=== PATIENT | female | born 1950 | race Caucasian/White ===

== ENCOUNTER 2024-08-26 22:47 | Observation (INO) ==
--- NOTE | 2024-08-26 23:11 | Emergency Department Note ---
Impression & Plan JERI (acute kidney injury), Weakness, Vomiting ED Provider Note NAME: YULIANA OMALLEY AGE: 74 SEX: F : 1950 ARRIVES VIA: Ambulance INFORMANT: Patient ED PROVIDER(S): Reginald Lambert DO CHIEF COMPLAINT: Abdominal pain HPI: Patient is a 74-year-old female who presents to the ER from heart side following a left leg injury and surgery for vomiting. Patient has been vomiting since yesterday. She has been unable to keep anything down. She complains of diffuse abdominal pain. Denies any headache or change in vision. No chest pain or shortness of breath. No dysuria, urgency, or frequency. Per report from EMS does have a history of dementia. Vomit has been bile colored in nature. Staff per EMS also reported that the patient had a very large bowel movement earlier today. ADDITIONAL HISTORY OBTAINED: Per HPI Chronic Medical/Social Conditions Affecting Care: Per HPI PAST MEDICAL HISTORY:See Below PAST SURGICAL HISTORY:See Below FAMILY HISTORY:See Below SOCIAL HISTORY:See Below HOME MEDICATIONS:See Below ALLERGIES:See Below VITALS:See Below PHYSICAL EXAMINATION: GENERAL: Sitting up in bed, alert, moderate distress holding abdomen EYE EXAM: normal conjunctiva. OROPHARYNX: mucous membranes are moist LUNGS: Clear to auscultation. Normal chest wall mechanics HEART: no murmurs, S1 normal and S2 normal ABDOMEN: abdomen soft, non-tender, normo-active bowel sounds, no masses, no rebound or guarding. BACK: Back is symmetrical on inspection and there is no deformity, no midline tenderness, no CVA tenderness. UPPER EXTREMITIES: upper extremities are grossly normal. LOWER EXTREMITIES: No pitting edema. NEURO EXAM: Normal sensorium, cranial nerves II-XII grossly intact, normal speech, no gross weakness of arms, no gross weakness of legs. MEDICAL DECISION MAKING: Patient is a 74-year-old female who presents to the ER for nausea vomiting and weakness. IV was established and blood work was obtained. Labs show no significant leukocytosis. Mild anemia at 10.4. BMP with a creatinine of 2.8 up from baseline of 1.4. LFTs and bilirubin is unremarkable. Lipase is normal. UA is clean. CT abdomen pelvis shows no obstruction. Patient was given IV fluids and Roman was placed. Discussed with the hospitalist admitted for further workup. Consults/Care Managements Discussions: Per MDM Triage Nursing notes reviewed. Limited review of prior medical records performed Vital Signs: reviewed and remarkable for no significant abnormalities Differential diagnosis: Differential diagnoses includes but is not limited to gastritis, peptic ulcer disease, GERD, gallbladder disease, pancreatitis, small bowel obstruction, appendicitis, diverticulitis, hernia, urinary tract infection, torsion, perforation, trauma, infectious. ER treatment provided: See below Diagnostics interpreted by me include EKG and cardiac monitoring as listed below: -Cardiac Monitoring: An order was placed for continuous cardiac monitoring. The monitor shows a rate of 80 with sinus rhythm. -ECG: none -Laboratory studies:Interpreted by me as stated above in MDM and shown below. Imaging studies: Xrays: As interpreted by me: None CTs show: CT abdomen pelvis per my preliminary interpretation showed no obvious bowel obstruction CT of the pelvis per radiology showed no acute pathology Procedures: None Critical Care: None Past Med/Surg History Problem List (Updated 08/27/24 @ 02:31 by Reginald Lambert DO) Vomiting (Acute) Weakness (Acute) JERI (acute kidney injury) (Acute) Social History Smoking Status: Never smoker Preferred Language: Malay Feels Safe at Home: Yes Allergies Allergies Allergy/AdvReac Type Severity Reaction Status Date / Time ether Allergy Unknown Verified 07/13/24 20:58 Penicillins Allergy Unknown Verified 07/13/24 20:58 Home Meds Home Medications Medication Instructions Recorded Confirmed glipizide 10 mg tablet 10 mg PO DAILY 07/13/24 07/13/24 lisinopril 10 mg tablet 10 mg PO DAILY 07/13/24 07/13/24 simvastatin 20 mg tablet 20 mg PO HS 07/13/24 07/13/24 Results & Data (ED) Vital Signs Vital Signs - 24 hr 08/26/24 23:01 08/26/24 23:04 08/26/24 23:05 Temperature 36.9 C Temperature Source Oral Pulse Rate 74 74 85 Pulse Rate [Apical] Respiratory Rate 19 20 Respiratory Effort / Characteristics Respiratory Depth Normal Respiratory Pattern Blood Pressure 148/104 H Blood Pressure [Left Arm] Blood Pressure Mean 118 Blood Pressure Mean [Left Arm] Pulse Oximetry 97 97 Oxygen Delivery Method Room Air Room Air Sepsis Recent Fever Within 48 Hours No Sepsis New/Unexplained Change in Mental Status No Sepsis Action Taken by Nursing No Action Required 08/26/24 23:53 08/27/24 00:00 08/27/24 00:18 Temperature Temperature Source Pulse Rate 86 73 Pulse Rate [Apical] 82 Respiratory Rate 20 18 18 Respiratory Effort / Characteristics Non-Labored Respiratory Depth Normal Respiratory Pattern Regular Blood Pressure 167/80 H 151/78 H Blood Pressure [Left Arm] 157/80 H Blood Pressure Mean 116 112 Blood Pressure Mean [Left Arm] 105 Pulse Oximetry 98 98 98 Oxygen Delivery Method Room Air Room Air Room Air Sepsis Recent Fever Within 48 Hours Sepsis New/Unexplained Change in Mental Status Sepsis Action Taken by Nursing 08/27/24 00:30 08/27/24 01:05 08/27/24 01:38 Temperature Temperature Source Pulse Rate 75 75 73 Pulse Rate [Apical] Respiratory Rate 21 16 18 Respiratory Effort / Characteristics Respiratory Depth Respiratory Pattern Blood Pressure 143/65 H 153/72 H 140/86 Blood Pressure [Left Arm] Blood Pressure Mean 103 88 119 Blood Pressure Mean [Left Arm] Pulse Oximetry 97 98 96 Oxygen Delivery Method Room Air Room Air Room Air Sepsis Recent Fever Within 48 Hours Sepsis New/Unexplained Change in Mental Status Sepsis Action Taken by Nursing Laboratory Data 08/26/24 23:05 08/26/24 23:05 Lab Results 08/26/24 08/26/24 08/27/24 Range/Units 23:05 23:41 00:52 WBC 10.12 (4.8-10.8) K/ul RBC 3.73 L (4.20-5.40) M/uL Hgb 10.4 L (12.0-16.0) g/dl POC Hgb 10.9 L (12.0-16.0) g/dl Hct 35.5 L (37.0-47.0) % POC Hct 32 L (37-47) % MCV 95.2 (80.0-100.0) fL MCH 27.9 (25.0-34.0) pg MCHC 29.3 L (32.0-36.0) g/dL RDW Std Deviation 57.8 H (36.4-46.3) fL RDW Coeff of Caleb 16.7 H (11.5-14.5) % Plt Count (130-400) K/uL MPV (9.4-12.4) fL Immature Gran % (Auto) 1.1 % Neut % (Auto) 67.6 % Lymph % (Auto) 23.1 % Page % (Auto) 7.0 % Eos % (Auto) 0.7 % Baso % (Auto) 0.5 % Neut # (Auto) 6.84 H (1.40-6.50) K/uL Lymph # (Auto) 2.34 (1.20-3.40) K/uL Page # (Auto) 0.71 H (0.11-0.59) K/uL Eos # (Auto) 0.07 (0.00-0.50) K/uL Baso # (Auto) 0.05 (0.00-0.20) K/uL Immature Gran # (Auto) 0.11 (0.01-0.20) K/uL Echinocytes 1+ POC Sodium 144 (135-144) mmol/L Sodium 144 (136-145) mmol/L POC Potassium 4.6 (3.3-5.0) mmol/L Potassium 4.7 (3.5-5.1) mmol/L POC Chloride 114 H (101-112) mmol/L Chloride 108 H (98-107) mmol/L Carbon Dioxide 13 L (21-32) mmol/L POC Total CO2 15 L (24-31) mmol/L Anion Gap 23 H (3-11) POC Anion Gap 20.0 (16-25) mmol/L POC BUN 37 H (7-18) mg/dl BUN 40 H (6-23) mg/dl Creatinine 2.88 H D (0.6-1.2) mg/dl POC Creatinine 3.3 H (0.6-1.3) mg/dl Est Cr Clr Drug Dosing 18.4 ml/min eGFR 16.72 BUN/Creatinine Ratio 13.9 (10-20) Glucose 180 H (70-99(Fasting)) mg/dl POC Glucose (other) 180 H (70-99) mg/dl Calcium 9.2 (8.6-10.3) mg/dl POC Ioniz Calcium Rachna 1.19 (1.12-1.32) mmol/l Total Bilirubin 0.4 (0.2-1.0) mg/dl AST 28 (13-39) U/L ALT 23 (7-52) U/L Alkaline Phosphatase 115 H (34-104) U/L Total Protein 7.3 (6.0-8.3) gm/dl Albumin 3.1 L (3.4-5.0) gm/dl Globulin 4.2 H (2.5-4.0) gm/dl Albumin/Globulin Ratio 0.7 L (0.9-2) Lipase 10 L (11-82) U/L Urine Color Yellow Urine Appearance Clear (Clear) Urine pH 5.0 (4.5-7.5) Ur Specific Randolph 1.013 (1.000-1.030) Urine Protein 1+ H (Negative) Urine Glucose (UA) Negative (Negative) Urine Ketones 1+ H (Negative) Urine Blood Trace H (Negative) Urine Nitrite Negative (Negative) Urine Bilirubin Negative (Negative) Urine Urobilinogen Negative (Negative) Ur Leukocyte Esterase Negative (Negative) Urine WBC (Auto) 0-5 (0-5) /hpf Urine RBC (Auto) 0-2 (0-2) /hpf U Hyaline Cast (Auto) 3-5 H (0-2) /lpf U Epithel Cells (Auto) 0-2 (0-2) /hpf Urine Bacteria (Auto) None Seen (None Seen) Administered Medications Discontinued Medications Sodium Chloride (Nss) 1,000 mls @ 999 mls/hr IV .Q1H1M ONE Stop: 08/27/24 00:09 Last Infusion: 08/27/24 00:55 Dose: Infused Documented By: Admin: 08/26/24 23:30 Dose: 999 mls/hr Documented By: EVELIN Sodium Chloride (Nss) 1,000 mls @ 999 mls/hr IV .Q1H1M ONE Stop: 08/27/24 00:44 Last Admin: 08/27/24 01:07 Dose: Not Given Documented By: EVELIN Morphine Sulfate (Morphine Sulfate 4 Mg/Ml 1 Ml Carp\Vial) 4 mg IV NOW STA Stop: 08/26/24 23:20 Last Admin: 08/26/24 23:31 Dose: 4 mg Documented By: EVELIN Ondansetron HCl (Ondansetron Inj 2 Mg/Ml 2 Ml Vial) 4 mg IV NOW STA Stop: 08/26/24 23:10 Last Admin: 08/26/24 23:30 Dose: 4 mg Documented By: EVELIN Imaging Data Radiologist's Impression: Abdomen/Pelvis CT 08/26/24 23:42 EXAM: CT abd pelvis wo con CLINICAL HISTORY: abd pain n/v TECHNIQUE: CT scan of the abdomen and pelvis was performed without IV contrast. Coronal and sagittal reconstructive images were also obtained. One of the following dose reduction techniques were utilized for this exam: Automated exposure control, adjustment of the mA and/or kV according to patient size, use of iterative reconstruction. COMPARISON: None. FINDINGS: Mild bilateral pleural effusion. Abdomen: Normal size of the liver. Small foci of calcification seen suggestive of old granuloma. No dilated intrahepatic biliary radicles. The kidneys are unremarkable. They are normal in size and shape. No calculi or hydronephrosis. Gallbladder is distended with mild increased density, no definite stones seen. No pericholecystic fluid or fat stranding. The spleen, pancreas, and adrenal glands are unremarkable. Uncomplicated sigmoid diverticuli. Small bowel loops are unremarkable. There is no evidence of significant enlargement of the mesenteric or retroperitoneal lymph nodes. Pelvis: The urinary bladder is unremarkable. The rectosigmoid colon is unremarkable. Previous hysterectomy. No evidence of pelvic lymphadenopathy. Lumbar vertebral spondylitic changes. Subcutaneous fat stranding seen at both sides of lower abdomen. IMPRESSION: 1. Mild bilateral pleural effusion. 2. Gallbladder is distended with mild increased density, No pericholecystic fat stranding or fluid collection. Would recommend ultrasound gallbladder for further evaluation if clinically warranted. 3. Uncomplicated sigmoid diverticuli. Electronically signed by Rosaura Lucas 08-27-2024 01:40 AM Discharge Plan Visit Data Chief Complaint: Vomiting Stated Complaint: NAUSEA/VOMITING ED Provider: Reginald Lambert Discharge Problem: JERI (acute kidney injury), Weakness, Vomiting Forms Stand Alone Forms: My [facility] [place] [employer] Prescriptions Prescriptions: No Action lisinopril 10 mg Tablet 10 mg PO DAILY glipizide 10 mg Tablet 10 mg PO DAILY simvastatin 20 mg Tablet 20 mg PO Referrals Referrals: Ken Cochran [Primary Care Provider] -
[2024-08-26] MEDS: SODIUM CHLORIDE 0.9% 1,000 ML IV ONE (23:30)
[2024-08-26] MEDS: ONDANSETRON INJ 2 MG/ML 2 ML VIAL IV STA (23:30)
[2024-08-26] MEDS: MoRPHine SULFATE 4 MG/ML 1 ML CARP\\VIAL IV STA (23:31)
[2024-08-26 23:53] LABS: iSTAT Creatinine 3.3 mg/dl (0.6-1.3); iSTAT Hemoglobin 10.9 g/dl (12.0-16.0); iSTAT Ionized Calcium 1.19 mmol/l (1.12-1.32); iSTAT Potassium 4.6 mmol/L (3.3-5.0)
[2024-08-27 00:10] LABS: Albumin Globulin Ratio 0.7 (0.9-2); Albumin Level 3.1 gm/dl (3.4-5.0); BUN Creatinine Ratio 13.9 (10-20); Bilirubin,Total 0.4 mg/dl (0.2-1.0); Calcium 9.2 mg/dl (8.6-10.3); Creatinine Clr Calc Pharmacy 18.4 ml/min; Globulin 4.2 gm/dl (2.5-4.0); Potassium 4.7 mmol/L (3.5-5.1); Total Protein 7.3 gm/dl (6.0-8.3)
[2024-08-27 00:29] LABS: Basophils # (auto) 0.05 K/uL (0.00-0.20); Basophils % (auto) 0.5 %; Echinocytes 1+; Eosinophils # (auto) 0.07 K/uL (0.00-0.50); Eosinophils % (auto) 0.7 %; Hematocrit (blood only) 35.5 % (37.0-47.0); Hemoglobin 10.4 g/dl (12.0-16.0); Immature Granulocytes # (auto) 0.11 K/uL (0.01-0.20); Immature Granulocytes % (auto) 1.1 %; Lymphocytes # (auto) 2.34 K/uL (1.20-3.40); Lymphocytes % (auto) 23.1 %; Mean Corpuscular Hemoglobin 27.9 pg (25.0-34.0); Mean Corpuscular Hgb Conc 29.3 g/dL (32.0-36.0); Mean Corpuscular Volume 95.2 fL (80.0-100.0); Monocytes # (auto) 0.71 K/uL (0.11-0.59); Neutrophils # (auto) 6.84 K/uL (1.40-6.50); Neutrophils % (auto) 67.6 %; RDW Coefficient of Variation 16.7 % (11.5-14.5); RDW Standard Deviation 57.8 fL (36.4-46.3); Red Blood Count 3.73 M/uL (4.20-5.40); White Blood Count 10.12 K/ul (4.8-10.8)
[2024-08-27] MEDS: SODIUM CHLORIDE 0.9% 1,000 ML IV ONE (01:07)
[2024-08-27 01:11] LABS: Appearance Urine Clear (Clear); Bacteria Urine Automated None Seen (None Seen); Bilirubin Urine Negative (Negative); Blood Urine Trace (Negative); Color Urine Yellow; Epithelial Cell Urine Auto 0-2 /hpf (0-2); Glucose Urine UA Negative (Negative); Ketones Urine 1+ (Negative); Leukocyte Esterase Urine Negative (Negative); Nitrite Urine Negative (Negative); Protein Urine 1+ (Negative); RBC Urine Automated 0-2 /hpf (0-2); Specific Gravity Urine 1.013 (1.000-1.030); Urobilinogen Urine Negative (Negative); WBC Urine Automated 0-5 /hpf (0-5)
--- NOTE | 2024-08-27 01:40 | CT Scan Report ---
EXAM: CT abd pelvis wo con CLINICAL HISTORY: abd pain n/v TECHNIQUE: CT scan of the abdomen and pelvis was performed without IV contrast. Coronal and sagittal reconstructive images were also obtained. One of the following dose reduction techniques were utilized for this exam: Automated exposure control, adjustment of the mA and/or kV according to patient size, use of iterative reconstruction. COMPARISON: None. FINDINGS: Mild bilateral pleural effusion. Abdomen: Normal size of the liver. Small foci of calcification seen suggestive of old granuloma. No dilated intrahepatic biliary radicles. The kidneys are unremarkable. They are normal in size and shape. No calculi or hydronephrosis. Gallbladder is distended with mild increased density, no definite stones seen. No pericholecystic fluid or fat stranding. The spleen, pancreas, and adrenal glands are unremarkable. Uncomplicated sigmoid diverticuli. Small bowel loops are unremarkable. There is no evidence of significant enlargement of the mesenteric or retroperitoneal lymph nodes. Pelvis: The urinary bladder is unremarkable. The rectosigmoid colon is unremarkable. Previous hysterectomy. No evidence of pelvic lymphadenopathy. Lumbar vertebral spondylitic changes. Subcutaneous fat stranding seen at both sides of lower abdomen. IMPRESSION: 1. Mild bilateral pleural effusion. 2. Gallbladder is distended with mild increased density, No pericholecystic fat stranding or fluid collection. Would recommend ultrasound gallbladder for further evaluation if clinically warranted. 3. Uncomplicated sigmoid diverticuli. Electronically signed by Rosaura Lucas 08-27-2024 01:40 AM
--- NOTE | 2024-08-27 05:18 | History & Physical Report ---
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 nu rsing home was sent in because of nausea vomiting and abdominal pain. Patient is alert to name. Per nursing staff she was also knew that she is in the hospital. Currently patient says she is having pain all over and repeating the same thing. And when asked other questions she says do not know. Could not get any history from the patient currently. Called the son it went to voicemail which is full. Called the friend and as per friend patient generally talks and make sense and friend said he will notify her son. Called [facility]. Per [facility] patient came there on August 24. And there is no clear documentation of mental status but there is a history of dementia. Patient is currently bedbound. Since Wednesday morning she is having lot of nausea and vomiting and they give p.o. Zofran but was not improving and she also complained of right upper quadrant abdominal pain when they decided to send to the hospital. No fevers. Had a bowel movement yesterday. As per [facility], Residents trauma surgery notes :"Patient seems to have a fall and noted to have open left distal femur fracture on 07/14 that required serial debridements prior to operative fixation and eventual discharge on 07/29 and antibiotic therapy via PICC line. She was readmitted on 08/16 with generalized malaise and a tracking around the surgical bed on CT scanning. ID and orthopedic surgery were consulted and adjusted antibiotics and CRP has been followed.. Ortho deferred operative management at this time as CRP has been stabilized with a plan to proceed with IV antibiotic therapy. She is currently on IV vancomycin and IV cefepime and p.o. voriconazole with end date of 09/19/2024. To follow-up with orthopedics and ID. Patient was discharged to [facility] on August 24, 2024. Nausea and vomiting Abdominal pain Possible gallbladder disease CT abdomen pelvis gallbladder distended with mild increased density. Recommending gallbladder ultrasound Will follow gallbladder ultrasound N.p.o. for now IV fluids IV antiemetics as needed GI consult Close monitor JERI on CKD Her creatinine was 2.3 on in [place] We do not have previous labs. As per [facility] creatinine 1.1 on 07/13/2024 Creatinine is 2.8 today No obstruction on the CAT scan Status post Roman in ER Getting fluids Will follow repeat labs Consulted nephro Metabolic acidosis Mostly from nausea vomiting from metformin? Getting fluids will consult nephro Left femur fracture infection infection Status post surgery at [place] Currently on IV Vanco and IV cefepime and p.o. voriconazole per ID recommendations with end date of 09/19/2024 Follow-up with Ortho and ID Transfer back to [facility] when stable Pain control Diabetes Will hold metformin Sliding scale Will monitor Constipation Stool softeners Anemia Possible anemia of recent illness Hemoglobin was 9.2 on 01/2024 Hemoglobin 10.4 today Hemoglobin was 14 on 07/13/2024 We will follow labs DVT prophylaxis On heparin subcu monitor hb Per [facility] ER notes from 07/13/2024 patient with a fall and open commuted intra articular fracture of the distal end of left femur and was transfered to [place]. Per ER notes she was on glipizide lisinopril and simvastatin at that time. Code Status. Per [facility] DNR. Will confirm with son. History of Present Illness Chief Complaint: Nausea and Vomiting and abdominal pain and confusion Primary Care Provider: [place] 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 was sent in because of nausea vomiting and abdominal pain. Patient is alert to name. Per nursing staff she was also knew that she is in the hospital. Currently patient says she is having pain all over and repeating the same thing. And when asked other questions she says do not know. Could not get any history from the patient currently. [facility]. Called the friend and as per friend patient generally talks and make sense and friend said he will notify her son. Called [facility]. Per [facility] patient came there on August 24. And there is no clear documentation of mental status but there is a history of dementia. Patient is currently bedbound. Since Wednesday morning she is having lot of nausea and vomiting and they give p.o. Zofran but was not improving and she also complained of right upper quadrant abdominal pain when they decided to send to the hospital. No fevers. Had a bowel movement yesterday. As per [facility], Residents trauma surgery notes :"Patient seems to have a fall and noted to have open left distal femur fracture on 07/14 that required serial debridements prior to operative fixation and eventual discharge on 07/29 and antibiotic therapy via PICC line. She was readmitted on 08/16 with generalized malaise and a tracking around the surgical bed on CT scanning. ID and orthopedic surgery were consulted and adjusted antibiotics and CRP has been followed.. Ortho deferred operative management at this time as CRP has been stabilized with a plan to proceed with IV antibiotic therapy. She is currently on IV vancomycin and IV cefepime and p.o. voriconazole with end date of 09/19/2024. To follow-up with orthopedics and ID. Patient was discharged to [facility] on August 24, 2024. Past medical's. As mentioned above Past surgical history. Drainage of left thigh lesion. Repair of left femur shaft fracture. Debridement of skin and subcu tissue. Social history. . Quit smoking 1998. No alcohol use. No drug use. Family history. No family history on file Allergies Allergy/AdvReac Type Severity Reaction Status Date / Time ether Allergy Unknown Verified 07/13/24 20:58 Penicillins Allergy Unknown Verified 07/13/24 20:58 Home Medications Medication Instructions Recorded Confirmed Type acetaminophen 325 mg tablet 650 mg PO QID PRN Pain 08/27/24 08/27/24 History amino acids-protein hydrolysate 16 30 ml PO BID 08/27/24 08/27/24 History gram-100 kcal/30 mL oral liquid (Liquacel) baclofen 10 mg tablet 10 mg PO TID PRN Spasms 08/27/24 08/27/24 History cefepime 2 gram solution for 2 g IV Q12H 08/27/24 08/27/24 History injection docusate sodium 100 mg capsule 100 mg PO BID 08/27/24 08/27/24 History (Colace) ergocalciferol (vitamin D2) 1,250 1,250 mcg PO WK 08/27/24 08/27/24 History mcg (50,000 unit) capsule heparin (porcine) 5,000 unit/0.5 5,000 unit TID 08/27/24 08/27/24 History mL injection syringe insulin aspart U-100 100 unit/mL 4 unit subcut USEASDIRECTD 08/27/24 08/27/24 History subcutaneous solution metformin 850 mg tablet 850 mg PO BID 08/27/24 08/27/24 History nystatin 100,000 unit/mL oral 5 ml PO ACHS 08/27/24 08/27/24 History suspension oxycodone 5 mg tablet 5 mg PO Q4H PRN Pain, Moderate 08/27/24 08/27/24 History polyethylene glycol 3350 17 gram 17 g PO DAILY 08/27/24 08/27/24 History oral powder packet (Miralax) sennosides 8.6 mg tablet (senna) 8.6 mg PO HS 08/27/24 08/27/24 History sodium chloride 0.9 % (flush) 5 ml IV UD 08/27/24 08/27/24 History vancomycin 750 mg/150 mL in 0.9 % 1,250 mg IV Q OTHER DAY 08/27/24 08/27/24 History sodium chloride intravenous voriconazole 50 mg tablet 250 mg PO Q12H 08/27/24 08/27/24 History Past Med/Surg History Problem List (Updated 08/27/24 @ 02:31 by Reginald Lambert DO) Vomiting (Acute) Weakness (Acute) JERI (acute kidney injury) (Acute) Social History Smoking Status: Unknown if ever smoked Preferred Language: Dutch Communication Ability: Impaired 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 Head- atraumatic Eyes- PERRL ENT- oropharynx clear Neck- supple, no JVD. Lungs- clear to auscultation no wheezing or crackles seen. Heart- regular rate and rhythm; no murmur, no gallop. Abdomen- normal bowel sounds, soft, diffuse tenderness, no distension Extremities- no pretibial edema, left lower extremity thorn[place] in immobilizer, healing surgical scar seen on left knee. Neuro- alert, oriented x 1; PERRL, confused. obeys simple commands Results & Data Results & Data Vital Signs (Past 12 Hours) Vital Signs Temp Pulse Pulse Resp BP BP Pulse Ox 08/27/24 03:00 71 20 159/73 H 97 08/27/24 02:56 79 08/27/24 02:30 75 18 159/77 H 96 08/27/24 02:00 76 17 128/62 96 08/27/24 01:38 73 18 140/86 96 08/27/24 01:05 75 16 153/72 H 98 08/27/24 00:30 75 21 143/65 H 97 08/27/24 00:18 73 18 151/78 H 98 08/27/24 00:00 86 18 167/80 H 98 08/26/24 23:53 82 20 157/80 H 98 08/26/24 23:05 85 20 97 08/26/24 23:04 74 08/26/24 23:01 36.9 C 74 19 148/104 H 97 O2 Del Method 08/27/24 03:00 Room Air 08/27/24 02:56 08/27/24 02:30 Room Air 08/27/24 02:00 Room Air 08/27/24 01:38 Room Air 08/27/24 01:05 Room Air 08/27/24 00:30 Room Air 08/27/24 00:18 Room Air 08/27/24 00:00 Room Air 08/26/24 23:53 Room Air 08/26/24 23:05 Room Air 08/26/24 23:04 08/26/24 23:01 Room Air Diagnostic Findings Laboratory Results WBC 10.12 K/ul (4.8-10.8) 08/26/24 23:05 RBC 3.73 M/uL (4.20-5.40) L 08/26/24 23:05 Hgb 10.4 g/dl (12.0-16.0) L 08/26/24 23:05 POC Hgb 10.9 g/dl (12.0-16.0) L 08/26/24 23:41 Hct 35.5 % (37.0-47.0) L 08/26/24 23:05 POC Hct 32 % (37-47) L 08/26/24 23:41 MCV 95.2 fL (80.0-100.0) 08/26/24 23:05 MCH 27.9 pg (25.0-34.0) 08/26/24 23:05 MCHC 29.3 g/dL (32.0-36.0) L 08/26/24 23:05 RDW Std Deviation 57.8 fL (36.4-46.3) H 08/26/24 23:05 RDW Coeff of Caleb 16.7 % (11.5-14.5) H 08/26/24 23:05 Plt Count K/uL (130-400) 08/26/24 23:05 MPV fL (9.4-12.4) 08/26/24 23:05 Immature Gran % (Auto) 1.1 % 08/26/24 23:05 Neut % (Auto) 67.6 % 08/26/24 23:05 Lymph % (Auto) 23.1 % 08/26/24 23:05 [place] % (Auto) 7.0 % 08/26/24 23:05 Eos % (Auto) 0.7 % 08/26/24 23:05 Baso % (Auto) 0.5 % 08/26/24 23:05 Neut # (Auto) 6.84 K/uL (1.40-6.50) H 08/26/24 23:05 Lymph # (Auto) 2.34 K/uL (1.20-3.40) 08/26/24 23:05 [place] # (Auto) 0.71 K/uL (0.11-0.59) H 08/26/24 23:05 Eos # (Auto) 0.07 K/uL (0.00-0.50) 08/26/24 23:05 Baso # (Auto) 0.05 K/uL (0.00-0.20) 08/26/24 23:05 Immature Gran # (Auto) 0.11 K/uL (0.01-0.20) 08/26/24 23:05 Echinocytes 1+ 08/26/24 23:05 POC Sodium 144 mmol/L (135-144) 08/26/24 23:41 Sodium 144 mmol/L (136-145) 08/26/24 23:05 POC Potassium 4.6 mmol/L (3.3-5.0) 08/26/24 23:41 Potassium 4.7 mmol/L (3.5-5.1) 08/26/24 23:05 POC Chloride 114 mmol/L (101-112) H 08/26/24 23:41 Chloride 108 mmol/L (98-107) H 08/26/24 23:05 Carbon Dioxide 13 mmol/L (21-32) L 08/26/24 23:05 POC Total CO2 15 mmol/L (24-31) L 08/26/24 23:41 Anion Gap 23 (3-11) H 08/26/24 23:05 POC Anion Gap 20.0 mmol/L (16-25) 08/26/24 23:41 POC BUN 37 mg/dl (7-18) H 08/26/24 23:41 BUN 40 mg/dl (6-23) H 08/26/24 23:05 Creatinine 2.88 mg/dl (0.6-1.2) H D 08/26/24 23:05 POC Creatinine 3.3 mg/dl (0.6-1.3) H 08/26/24 23:41 Est Cr Clr Drug Dosing 18.4 ml/min 08/26/24 23:05 eGFR 16.72 08/26/24 23:05 BUN/Creatinine Ratio 13.9 (10-20) 08/26/24 23:05 Glucose 180 mg/dl (70-99(Fasting)) H 08/26/24 23:05 POC Glucose (other) 180 mg/dl (70-99) H 08/26/24 23:41 Calcium 9.2 mg/dl (8.6-10.3) 08/26/24 23:05 POC Ioniz Calcium Rachna 1.19 mmol/l (1.12-1.32) 08/26/24 23:41 Total Bilirubin 0.4 mg/dl (0.2-1.0) 08/26/24 23:05 AST 28 U/L (13-39) 08/26/24 23:05 ALT 23 U/L (7-52) 08/26/24 23:05 Alkaline Phosphatase 115 U/L (34-104) H 08/26/24 23:05 Total Protein 7.3 gm/dl (6.0-8.3) 08/26/24 23:05 Albumin 3.1 gm/dl (3.4-5.0) L 08/26/24 23:05 Globulin 4.2 gm/dl (2.5-4.0) H 08/26/24 23:05 Albumin/Globulin Ratio 0.7 (0.9-2) L 08/26/24 23:05 Lipase 10 U/L (11-82) L 08/26/24 23:05 Urine Color Yellow 08/27/24 00:52 Urine Appearance Clear (Clear) 08/27/24 00:52 Urine pH 5.0 (4.5-7.5) 08/27/24 00:52 Ur Specific Benge 1.013 (1.000-1.030) 08/27/24 00:52 Urine Protein 1+ (Negative) H 08/27/24 00:52 Urine Glucose (UA) Negative (Negative) 08/27/24 00:52 Urine Ketones 1+ (Negative) H 08/27/24 00:52 Urine Blood Trace (Negative) H 08/27/24 00:52 Urine Nitrite Negative (Negative) 08/27/24 00:52 Urine Bilirubin Negative (Negative) 08/27/24 00:52 Urine Urobilinogen Negative (Negative) 08/27/24 00:52 Ur Leukocyte Esterase Negative (Negative) 08/27/24 00:52 Urine WBC (Auto) 0-5 /hpf (0-5) 08/27/24 00:52 Urine RBC (Auto) 0-2 /hpf (0-2) 08/27/24 00:52 U Hyaline Cast (Auto) 3-5 /lpf (0-2) H 08/27/24 00:52 U Epithel Cells (Auto) 0-2 /hpf (0-2) 08/27/24 00:52 Urine Bacteria (Auto) None Seen (None Seen) 08/27/24 00:52 Impressions Abdomen/Pelvis CT 08/26/24 23:42 EXAM: CT abd pelvis wo con CLINICAL HISTORY: abd pain n/v TECHNIQUE: CT scan of the abdomen and pelvis was performed without IV contrast. Coronal and sagittal reconstructive images were also obtained. One of the following dose reduction techniques were utilized for this exam: Automated exposure control, adjustment of the mA and/or kV according to patient size, use of iterative reconstruction. COMPARISON: None. FINDINGS: Mild bilateral pleural effusion. Abdomen: Normal size of the liver. Small foci of calcification seen suggestive of old granuloma. No dilated intrahepatic biliary radicles. The kidneys are unremarkable. They are normal in size and shape. No calculi or hydronephrosis. Gallbladder is distended with mild increased density, no definite stones seen. No pericholecystic fluid or fat stranding. The spleen, pancreas, and adrenal glands are unremarkable. Uncomplicated sigmoid diverticuli. Small bowel loops are unremarkable. There is no evidence of significant enlargement of the mesenteric or retroperitoneal lymph nodes. Pelvis: The urinary bladder is unremarkable. The rectosigmoid colon is unremarkable. Previous hysterectomy. No evidence of pelvic lymphadenopathy. Lumbar vertebral spondylitic changes. Subcutaneous fat stranding seen at both sides of lower abdomen. IMPRESSION: 1. Mild bilateral pleural effusion. 2. Gallbladder is distended with mild increased density, No pericholecystic fat stranding or fluid collection. Would recommend ultrasound gallbladder for further evaluation if clinically warranted. 3. Uncomplicated sigmoid diverticuli. Electronically signed by Rosaura Lucas 08-27-2024 01:40 AM Code Status & VTE Plan VTE Prophylaxis Plan VTE Prophylaxis will be ordered: Yes
[2024-08-27] MEDS: ONDANSETRON INJ 2 MG/ML 2 ML VIAL IV STA (05:50)
[2024-08-27] MEDS: ONDANSETRON INJ 2 MG/ML 2 ML VIAL ONE (05:50)
--- NOTE | 2024-08-27 07:12 | CT Scan Report ---
"EXAM: CT head/brain wo con CLINICAL HISTORY: AMS best possible scan due to pt continually vomiting. pt scanned on side due to concern for aspiration TECHNIQUE: Axial non-contrast CT scan of the brain was performed from the skull base to the high parietal region. One of the following dose reduction techniques were utilized for this exam: Automated exposure control, adjustment of the mA and/or kV according to patient size, use of iterative reconstruction. COMPARISON: None. FINDINGS: Brain Parenchyma: Normal attenuation of the cerebral hemispheres, cerebellum, and brainstem. No evidence of acute infarct, hemorrhage, or mass effect. No abnormal areas of hypo- or hyperattenuation. Possible soft tissue thickening noted in the left parasellar and cavernous sinus region with maximum thickness of 11mm, could be an artifact due to patient motion or extraaxial lesion or cavernous sinus lesion. Further MRI is advised Ventricular System: Prominent ventricular system and extraaxial CSF spaces, suggesting age-related brain atrophic changes. Ventricles are normal in size and configuration. No evidence of hydrocephalus or ventricular enlargement. Subarachnoid Spaces: Normal sulci and cisterns. No evidence of subarachnoid hemorrhage or extra-axial fluid collections. Cerebellum and Brainstem: Normal size and signal. No masses, lesions, or areas of abnormal signal. Orbits: Normal appearance of the globes, optic nerves, and extraocular muscles. No evidence of orbital masses or abnormal signal. Sinuses: |Left sphenoidal sinus mucosal thickening. Mastoid Air Cells: Clear mastoid air cells. No evidence of mastoiditis. Skull and Meninges: Normal skull morphology. IMPRESSION: 1. Possible soft tissue thickening noted in the left parasellar and cavernous sinus region with maximum thickness of 11mm, could be an artifact due to patient motion or extraaxial lesion or cavernous sinus lesion. Further MRI is advised. 2. Age-related brain atrophic changes. 3. No acute hemorrhage or infarction. If acute ischemic insult was suspected clinically, MRI with DWI is advised. Electronically signed by Rosaura Lucas 08-27-2024 07:11 AM"
[2024-08-27 07:18] LABS: HCO3 VBG 14 mmol/L; Oxygen Saturation VBG 73.5 %; PCO2 VBG 30 mmHg (38-50); PO2 VBG 44 mmHg; pH VBG 7.29 (7.36-7.41)
--- NOTE | 2024-08-27 07:55 | Ultrasound Report ---
EXAM: US gallbladder CLINICAL HISTORY: Gallbladder disease. Pt has Hx of dementia. Somewhat limited exam due to limited pt positioning and pt unable to hold breath. PANC: no definite abn seen, limited vis due to overlying bowel LIVER: 15.5 cm, somewhat echogenic appearing GB: wall = 2.5 mm. ? pericholecystic fluid vs wall edema seen. Slow moving echogenic substance within GB containing a few calcs ? probable sludge with small stones. Negative Ramos''s. CBD: 3 mm RK: 10.3 cm, no hydro TECHNIQUE: Limited ultrasound of the liver and gallbladder was performed in greyscale and Doppler. Multiple images were obtained in transverse and longitudinal planes. COMPARISON: 08/25/2024 CT. FINDINGS: Liver: Liver size: average in size reaching 15.5 cm in right lobe span with somewhat echogenic pattern with a course texture. The liver appears normal in size with homogeneous echotexture. No evidence of focal lesions, cysts, or masses. Hepatic vasculature appears normal. Gallbladder: Gallbladder size: The gallbladder is markedly distended with gallbladder mud seen having small scattered echogenic foci adherent to the bee. Mild pericholecystic fluid was noted. Biliary Tree: Common bile duct diameter: A 3mm CBD is seen. The common bile duct is within normal limits in caliber and not dilated. No evidence of choledocholithiasis or biliary obstruction. IMPRESSION: 1. The liver shows course parenchyma of chronic parenchymatous disease. 2. A distended gall bladder with mud was noted and signs of early cholecystitis were seen. Electronically signed by Rosaura Lucas 08-27-2024 07:54 AM
[2024-08-27] MEDS ORDERED: POLYETHYLENE (MIRALAX) 17 GM PACK PO PRN (09:21)
[2024-08-27] MEDS ORDERED: DEXTROSE 50% 50 ML SYRINGE IV PRN (09:21)
[2024-08-27] MEDS ORDERED: CARBOHYDRATES FOR HYPOGLYCEMIA PO PRN (09:21)
[2024-08-27] MEDS ORDERED: SODIUM CHLORIDE 0.9% 2.5 ML FLUSH IV SCH (09:21)
[2024-08-27] MEDS ORDERED: [UNRECOGNIZED DRUG - OTHER] PO SCH (09:21)
[2024-08-27] MEDS ORDERED: GLUCOSE 40% GEL 15 GM TUBE PO PRN (09:21)
[2024-08-27] MEDS ORDERED: VANCOMYCIN CONSULT ACTIVE PRN (09:21)
[2024-08-27] MEDS ORDERED: CEFEPIME 2 GM VIAL IV SCH (09:21)
[2024-08-27] MEDS ORDERED: NITROGLYCERIN SL 0.4 MG/TAB TAB SL PRN (09:21)
[2024-08-27] MEDS ORDERED: GLUCOSE 10 TAB/TUBE PO PRN (09:21)
[2024-08-27] MEDS ORDERED: AMINO ACIDS PROTEIN HYDROLYS PO SCH (09:21)
[2024-08-27] MEDS ORDERED: VANCOMYCIN IV SCH (09:21)
[2024-08-27] MEDS ORDERED: SODIUM CHL IV SCH (09:21)
[2024-08-27] MEDS ORDERED: GLUCAGON FOR INJ 1 MG VIAL SQ PRN (09:21)
--- NOTE | 2024-08-27 09:32 | Surgery Consultation ---
Date of Consultation August 27, 2024 Assessment & Plan (1) Abdominal pain: Her CT and ultrasound results were personally viewed and interpreted by myself She does have a slightly distended gallbladder on CT and ultrasound wall thickness is only 2.5 mm per ultrasound and no convincing pericholecystic fluid On exam she has a negative Ramos sign and generalized abdominal tenderness Will treat her with n.p.o. and IV antibiotics on obtaining a HIDA scan tomorrow Further treatment options in her HIDA scan results Will follow-up (2) Cholelithiasis: History of Present Illness Reason for Consultation: Possible acute cholecystitis Attending Physician: Vicente Duron MD History of Present Illness This is a 74-year-old female who was admitted earlier this morning for generalized abdominal pain. The patient is confused at baseline unable to consistently answer questions correctly. She states that she "has pain all over her abdomen ". She was sent in for nausea vomiting and upper abdominal pain per her snf. She did have an ultrasound and CT scan of the abdomen pelvis that showed possible cholecystitis. She has a history of a left femur fracture in June for which she was sent to [facility] this was repaired. This was complicated by wound infection for which she is on cefepime, vancomycin and voriconazole. This is to run through September 19. She does have a PICC line in place for this. She has been hemodynamically stable and afebrile since admission. Allergies Allergy/AdvReac Type Severity Reaction Status Date / Time ether Allergy Unknown Verified 07/13/24 20:58 Penicillins Allergy Unknown Verified 07/13/24 20:58 Home Medications Medication Instructions Recorded Confirmed Type acetaminophen 325 mg tablet 650 mg PO QID PRN Pain 08/27/24 08/27/24 History amino acids-protein hydrolysate 16 30 ml PO BID 08/27/24 08/27/24 History gram-100 kcal/30 mL oral liquid (Liquacel) baclofen 10 mg tablet 10 mg PO TID PRN Spasms 08/27/24 08/27/24 History cefepime 2 gram solution for 2 g IV Q12H 08/27/24 08/27/24 History injection docusate sodium 100 mg capsule 100 mg PO BID 08/27/24 08/27/24 History (Colace) ergocalciferol (vitamin D2) 1,250 1,250 mcg PO WK 08/27/24 08/27/24 History mcg (50,000 unit) capsule heparin (porcine) 5,000 unit/0.5 5,000 unit TID 08/27/24 08/27/24 History mL injection syringe insulin aspart U-100 100 unit/mL 4 unit subcut USEASDIRECTD 08/27/24 08/27/24 History subcutaneous solution metformin 850 mg tablet 850 mg PO BID 08/27/24 08/27/24 History nystatin 100,000 unit/mL oral 5 ml PO ACHS 08/27/24 08/27/24 History suspension oxycodone 5 mg tablet 5 mg PO Q4H PRN Pain, Moderate 08/27/24 08/27/24 History polyethylene glycol 3350 17 gram 17 g PO DAILY 08/27/24 08/27/24 History oral powder packet (Miralax) sennosides 8.6 mg tablet (senna) 8.6 mg PO HS 08/27/24 08/27/24 History sodium chloride 0.9 % (flush) 5 ml IV UD 08/27/24 08/27/24 History vancomycin 750 mg/150 mL in 0.9 % 1,250 mg IV Q OTHER DAY 08/27/24 08/27/24 History sodium chloride intravenous voriconazole 50 mg tablet 250 mg PO Q12H 08/27/24 08/27/24 History Patient History Social History Smoking Status: Unknown if ever smoked Preferred Language: Bangladeshi Communication Ability: Impaired Behavioral Health Director Required: No Beliefs That Will Affect Care: None Current Living Situation[facility] Current Living Situation Comment: [facility] Other Information That Helps Us Care for You: No Feels Safe at Home: Yes Review of Systems Review of Systems: Unobtainable due to cognitive status Physical Exam Constitutional: WD/WN, vitals as above Eyes: PERRL, conjunctivae normal, anicteric sclerae ENMT: external ear and nose normal, oropharynx normal Neck: trachea midline, no thyromegaly Respiratory: normal respiratory effort, lungs clear to auscultation Cardiovascular: RRR, no murmur, no edema Gastrointestinal (Abdomen): Inspection/Auscultation: abdomen normal to inspection and + abdominal surgical scar (Lower midline); abdomen not distended Generalized tenderness to palpation, no rebound or guarding Negative Ramos's Musculoskeletal: no cyanosis or clubbing, extremities motor strength 5/5 Skin: no rashes, warm and dry Neurologic: PERRL, EOMI, accommodation nl, no face palsy, no dysarthria Psychiatric: A+Ox3, euthymic affect Results & Data Vital Signs (Past 12 Hours) Vital Signs Temp Pulse Pulse Resp BP BP Pulse Ox 08/27/24 08:30 140/71 08/27/24 08:30 74 17 97 08/27/24 08:03 69 17 97 08/27/24 08:00 148/70 H 08/27/24 07:54 73 14 96 08/27/24 07:36 76 20 97 08/27/24 07:32 142/71 H 08/27/24 07:32 79 20 142/71 H 98 08/27/24 06:19 80 20 96/73 L 96 08/27/24 05:00 75 17 145/70 H 97 08/27/24 04:00 71 19 155/91 H 96 08/27/24 03:00 71 20 159/73 H 97 08/27/24 02:56 79 08/27/24 02:30 75 18 159/77 H 96 08/27/24 02:00 76 17 128/62 96 08/27/24 01:38 73 18 140/86 96 08/27/24 01:05 75 16 153/72 H 98 08/27/24 00:30 75 21 143/65 H 97 08/27/24 00:18 73 18 151/78 H 98 08/27/24 00:00 86 18 167/80 H 98 08/26/24 23:53 82 20 157/80 H 98 08/26/24 23:05 85 20 97 08/26/24 23:04 74 08/26/24 23:01 36.9 C 74 19 148/104 H 97 O2 Del Method 08/27/24 08:30 08/27/24 08:30 08/27/24 08:03 08/27/24 08:00 08/27/24 07:54 08/27/24 07:36 08/27/24 07:32 08/27/24 07:32 Room Air 08/27/24 06:19 Room Air 08/27/24 05:00 Room Air 08/27/24 04:00 Room Air 08/27/24 03:00 Room Air 08/27/24 02:56 08/27/24 02:30 Room Air 08/27/24 02:00 Room Air 08/27/24 01:38 Room Air 08/27/24 01:05 Room Air 08/27/24 00:30 Room Air 08/27/24 00:18 Room Air 08/27/24 00:00 Room Air 08/26/24 23:53 Room Air 08/26/24 23:05 Room Air 08/26/24 23:04 08/26/24 23:01 Room Air PG Care Time/CCT Total # of Minutes Spent Total Time Spent with Patient: Total time spent is greater than 50% in coordination of care (as documented) at patient's floor/unit and/or counseling patient: Coding Level of Care Code 01765 INT INP/OBS CARE 3/75MIN Diagnoses Abdominal pain R10.9 Cholelithiasis K80.20
[2024-08-27] MEDS: HYDROmorphone INJ 0.5 MG/0.5 ML SYR IV PRN (09:51)
[2024-08-27 09:57] LABS: Basophils # (auto) 0.03 K/uL (0.00-0.20); Basophils % (auto) 0.4 %; Eosinophils # (auto) 0.01 K/uL (0.00-0.50); Eosinophils % (auto) 0.1 %; Hematocrit (blood only) 34.5 % (37.0-47.0); Immature Granulocytes # (auto) 0.07 K/uL (0.01-0.20); Immature Granulocytes % (auto) 0.9 %; Lymphocytes # (auto) 1.45 K/uL (1.20-3.40); Lymphocytes % (auto) 18.5 %; Mean Corpuscular Hemoglobin 28.1 pg (25.0-34.0); Mean Corpuscular Volume 96.9 fL (80.0-100.0); Mean Platelet Volume 10.7 fL (9.4-12.4); Monocytes # (auto) 0.48 K/uL (0.11-0.59); Monocytes % (auto) 6.1 %; Neutrophils # (auto) 5.78 K/uL (1.40-6.50); Platelet Count 115 K/uL (130-400); RDW Coefficient of Variation 16.8 % (11.5-14.5); RDW Standard Deviation 58.8 fL (36.4-46.3); Red Blood Count 3.56 M/uL (4.20-5.40); White Blood Count 7.82 K/ul (4.8-10.8)
--- NOTE | 2024-08-27 10:06 | XRay Report ---
XR chest 1V portable HISTORY: 74 years-old Female positioning of picc line status post placement of a right-sided PICC COMPARISON: 07/13/2024 TECHNIQUE: AP view the chest FINDINGS: Cardiomediastinal and hilar silhouettes are unchanged. Mild left hemidiaphragmatic elevation. Trace p leural effusions. Pulmonary vascular congestion with mild bibasilar densities. A right-sided PICC is noted with distal tip in the expected location of the inferior SVC. No pneumothorax. IMPRESSION: 1. Status post placement of a right-sided PICC with distal tip in the expected location of the inferi or SVC. 2. Cardiomegaly with mild pulmonary edema. 2. Trace pleural effusions with mild bibasilar opacities. ACT 112: Negative or not required by law. The above report was generated using voice recognition software. It may contain grammatical, syntax o r spelling errors. Electronically signed by: Gregorio Walton M.D. 08/27/2024 10:05 AM
[2024-08-27 10:12] LABS: BUN Creatinine Ratio 13.1 (10-20); Creatinine Clr Calc Pharmacy 16.9 ml/min; Potassium 5.1 mmol/L (3.5-5.1)
[2024-08-27] MEDS: ALTEPLASE, RECOMBINANT 1 MG/ML 2ML VIAL INSTIL ONE (10:20)
[2024-08-27] MEDS ORDERED: STAT IV/IM STA (10:34)
[2024-08-27] MEDS: D5W AND NSS 1,000 ML IV SCH (10:45)
[2024-08-27] MEDS: DOCUSATE SODIUM 100 MG CAP PO SCH (10:53)
[2024-08-27] MEDS: NYSTATIN SUSP 500,000 U/5 ML UDC PO SCH (10:53)
[2024-08-27] MEDS: PNEUMOCOCCAL VACCINE (PCV20) 20-VAL CONJ-DIP CRM/PF 0.5 ML SYR IM ONE (10:54)
[2024-08-27] MEDS: INFLUENZA VACC TS2024-25(65y+)/PF (IIV3) 0.5mL Syr IM ONE (10:54)
[2024-08-27] MEDS: POLYETHYLENE (MIRALAX) 17 GM PACK PO SCH (10:54)
[2024-08-27] MEDS: HEPARIN SOD 5,000 UNIT/0.5 ML VIAL SQ SCH (10:58)
[2024-08-27] MEDS: INSULIN ASPART PER UNIT CHARGE SC SCH (10:58)
[2024-08-27] MEDS: CEFEPIME 1000MG 1,000 MG/10 ML SYR IV SCH (11:00)
[2024-08-27] MEDS: VORICONAZOLE 200 MG TABLET PO SCH (11:01)
[2024-08-27] MEDS: LANTUS PER UNIT CHARGE SQ SCH (11:19)
--- NOTE | 2024-08-27 11:20 | Pharmacy Report ---
Pharmacy PK ABX Note - Date of Service August 27, 2024 - Assessment and Plan Assessment 74 year old F receiving Vancomycin + Cefepime + Metronidazole + Voriconazole for treatment of osteomyelitis as well as possible acute cholecystitis. * Patient comes from [facility] and has been receiving Vancomycin and Cefepime as an outpatient. * Per review of [facility] records, patient suffered a fall and open left distal femur fracture on 07/14 that has required serial debridements and operative fixation. Discharged on 07/29/24 but readmitted 08/16/24. Plan was to medically manage with vancomycin, cefepime and voriconazole. Appears end date is going to be 09/29/23 per most recent MT note. * Cultures from [facility] review have grown Serratia marcescens as well as several molds. * Upon presentation to [facility], patient is afebrile and without leukocytosis. SCr increased to 3.14 mg/dL today. Plan Vancomycin * Appears patient was receiving 1250 mg IV every 48 hours as an outpatient. Last dose was 08/26/24 around 0900 per chart review. Last trough level was 19.2 mcg/mL at 0813 on 08/24/24 prior to the 0900 dose. SCr was 2.3 mg/dL at that time. * Ordered random level this AM which returned at 16.8 mcg/mL. Given this level as well as increase in SCr, will defer further vancomycin dosing at this time. Will order another random level with AM labs for tomorrow and likely proceed with previous outpatient dosing as this is predicted to achieve an AUC/SALIMA of 400-600. Cefepime * 1000 mg IV every 12 hours is appropriate per renal fxn Metronidazole * 500 mg IV every 8 hours is appropriate for possible GI infxn Voriconazole * 250 mg IV every 12 hours Pharmacy will continue to follow and will adjust dose/frequency as necessary. Thank you. Pharmacy has transitioned to AUC monitoring for vancomycin. AUC/SALIMA is the preferred PK/PD target and is associated with decreased risk of nephrotoxicity compared to traditional trough targets.
--- NOTE | 2024-08-27 12:19 | Nephrology Consultation ---
Date of Consultation August 27, 2024 Assessment & Plan (1) JERI (acute kidney injury): On [facility] chart review his serum creatinine was 0.9 on 08/09/2024, since then this has been in mid 2s, he did not have any contrast study recently(reviewed both in [facility] and [facility]) he is on 5 tablets(each 50 mg), twice daily of voriconazole, since 08/07/2024, with 2 g cefepime twice daily(since 07/29/2024), and vancomycin 1250 mg every other day(since 08/24/2024), he also had cefozolin and gentamicin when he was admitted in [facility] from 07/13 to 07/29 -Serum creatinine ,on 08/25 this 2.36 which has risen to 3.14 today, his weight has also increased as per [facility] chart(not sure how accurate this is)88.6 kilos on 07/13, this is now 92.3 kilos today. -this looks like toxic ATN / interstitial nephritis/ C3GN. IGN- secondary to antibiotic use, there may be an element of hypervolemia as well - Definate diagnosis is only possoble w/ renal biopsy, but with the current infection , this does not seen to be a optioN, same thing applies w/ steroids.will get ACR with PCR tmrw. -Need to rationalize his antibiotics, please consult ID, regarding present antibiotics and antifungal(voriconazole) -he has already got L of normal saline and presently he is on bicarb drip, blood pressure is good urine output is also more than a L. -I would stop the bicarb drip and give him 80 mg of Lasix IV stat - monitor BMP daily, accurate input and output and daily weights preferably on the same scale. (2) Cholelithiasis: As per GI/ primary team (3) Abdominal pain: History of Present Illness Reason for Consultation: Acute kidney injury Attending Physician: Vicente Duron MD History of Present Illness 74-year old snf resident who was admitted with nausea vomiting and abdominal pain, patient is confused, history as per previous HPI. He is currently bed-bound and there is no history of dementia documented as per snf. He had a recent left distal femur fracture on 07/14 that required serial debridements prior to operative fixation and discharge on 07/29 with antibiotic. He was readmitted on 08/16 with general malaise tracking around the wound, ortho deferred operative management with plans to proceed with IV antibiotic. Currently she is on IV vancomycin IV cefepime and per oral voriconazole with the end date of 09/19/2024. Serum creatinine was 1.1 as per labs on 07/13, on 08/25 this was 2.36 which has risen to 3.14 today, bicarbonate was low at 15 yesterday, stable hemoglobin @ 10. He has received 1 L of normal saline and presently is on bicarb drip. Normal hemodynamics with good urine output, lisinopril has been withheld Chest x-ray showed cardiomegaly with mild pulmonary edema and trace pleural effusion with mild bibasilar opacities, her ultrasound endorsed distended gallbladder with signs of early cholecystitis-for HIDA scan tomorrow. His weight was 88.6 kilos on 07/13, this is now 92.3 kilos today. 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, delirium, acute blood loss anemia, who is currently at [facility] Allergies Allergy/AdvReac Type Severity Reaction Status Date / Time ether Allergy Unknown Verified 07/13/24 20:58 Penicillins Allergy Unknown Verified 07/13/24 20:58 Home Medications Medication Instructions Recorded Confirmed Type acetaminophen 325 mg tablet 650 mg PO QID PRN Pain 08/27/24 08/27/24 History amino acids-protein hydrolysate 16 30 ml PO BID 08/27/24 08/27/24 History gram-100 kcal/30 mL oral liquid (Liquacel) baclofen 10 mg tablet 10 mg PO TID PRN Spasms 08/27/24 08/27/24 History cefepime 2 gram solution for 2 g IV Q12H 08/27/24 08/27/24 History injection docusate sodium 100 mg capsule 100 mg PO BID 08/27/24 08/27/24 History (Colace) ergocalciferol (vitamin D2) 1,250 1,250 mcg PO WK 08/27/24 08/27/24 History mcg (50,000 unit) capsule heparin (porcine) 5,000 unit/0.5 5,000 unit TID 08/27/24 08/27/24 History mL injection syringe insulin aspart U-100 100 unit/mL 4 unit subcut USEASDIRECTD 08/27/24 08/27/24 History subcutaneous solution metformin 850 mg tablet 850 mg PO BID 08/27/24 08/27/24 History nystatin 100,000 unit/mL oral 5 ml PO ACHS 08/27/24 08/27/24 History suspension oxycodone 5 mg tablet 5 mg PO Q4H PRN Pain, Moderate 08/27/24 08/27/24 History polyethylene glycol 3350 17 gram 17 g PO DAILY 08/27/24 08/27/24 History oral powder packet (Miralax) sennosides 8.6 mg tablet (senna) 8.6 mg PO HS 08/27/24 08/27/24 History sodium chloride 0.9 % (flush) 5 ml IV UD 08/27/24 08/27/24 History vancomycin 750 mg/150 mL in 0.9 % 1,250 mg IV Q OTHER DAY 08/27/24 08/27/24 History sodium chloride intravenous voriconazole 50 mg tablet 250 mg PO Q12H 08/27/24 08/27/24 History Patient History Social History Smoking Status: Unknown if ever smoked Preferred Language: Rwandan Communication Ability: Impaired Overhead Irrigator Required: No Beliefs That Will Affect Care: None Current Living Situation: [facility] Current Living Situation Comment: [facility] Feels Safe at Home: Yes Review of Systems 2 Review of Systems: All systems reviewed & are unremarkable except as noted in HPI & below Physical Exam 2 Physical Exam: General- Confused. Lungs- clear to auscultation no wheezing or crackles seen. Heart- regular rate and rhythm; no murmur, no gallop. Abdomen- normal bowel sounds, soft, diffuse tenderness, no distension Extremities- no pretibial edema, left lower extremity thornton in immobilizer, healing surgical scar seen on left knee. Neuro- alert, oriented x 1; PERRL, confused. obeys simple commands Results & Data Vital Signs (Past 12 Hours) Vital Signs Temp Pulse Pulse Resp BP BP Pulse Ox 08/27/24 11:42 08/27/24 11:38 66 08/27/24 11:22 36.6 C 68 18 134/77 97 08/27/24 09:24 36.7 C 64 20 131/67 99 08/27/24 09:24 08/27/24 09:24 36.7 C 64 20 131/67 99 08/27/24 08:30 140/71 08/27/24 08:30 74 17 97 08/27/24 08:03 69 17 97 08/27/24 08:00 148/70 H 08/27/24 07:54 73 14 96 08/27/24 07:36 76 20 97 08/27/24 07:32 142/71 H 08/27/24 07:32 79 20 142/71 H 98 08/27/24 06:19 80 20 96/73 L 96 08/27/24 05:00 75 17 145/70 H 97 08/27/24 04:00 71 19 155/91 H 96 08/27/24 03:00 71 20 159/73 H 97 08/27/24 02:56 79 08/27/24 02:30 75 18 159/77 H 96 08/27/24 02:00 76 17 128/62 96 08/27/24 01:38 73 18 140/86 96 08/27/24 01:05 75 16 153/72 H 98 08/27/24 00:30 75 21 143/65 H 97 08/27/24 00:18 73 18 151/78 H 98 Pulse Ox O2 Del Method O2 Del Method O2 Flow Rate 08/27/24 11:42 Room Air 08/27/24 11:38 08/27/24 11:22 Room Air 08/27/24 09:24 Room Air 08/27/24 09:24 99 Room Air 0 08/27/24 09:24 Room Air 08/27/24 08:30 08/27/24 08:30 08/27/24 08:03 08/27/24 08:00 08/27/24 07:54 08/27/24 07:36 08/27/24 07:32 08/27/24 07:32 Room Air 08/27/24 06:19 Room Air 08/27/24 05:00 Room Air 08/27/24 04:00 Room Air 08/27/24 03:00 Room Air 08/27/24 02:56 08/27/24 02:30 Room Air 08/27/24 02:00 Room Air 08/27/24 01:38 Room Air 08/27/24 01:05 Room Air 08/27/24 00:30 Room Air 08/27/24 00:18 Room Air Laboratory Results 08/27/24 09:33 08/27/24 09:33
--- NOTE | 2024-08-27 13:27 | Hospitalist Progress Note ---
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 As per chart review in [facility], Residents trauma surgery notes :"Patient seems to have a fall and noted to have open left distal femur fracture on 07/14 that required serial debridements prior to operative fixation and eventual discharge on 07/29 and antibiotic therapy via PICC line. She was readmitted on 08/16 with generalized malaise and a tracking around the surgical bed on CT scanning. ID and orthopedic surgery were consulted and adjusted antibiotics and CRP has been followed. Ortho deferred operative management at this time as CRP has been stabilized with a plan to proceed with IV antibiotic therapy. She is currently on IV vancomycin and IV cefepime and p.o. voriconazole with end date of 09/19/2024. To follow-up with orthopedics and ID. Patient was discharged to [facility] on August 24, 2024. Nausea and vomiting Abdominal pain Possible Acute Cholecystitis Patient presented to the hospital with abdominal pain, nausea and vomiting. Ultrasound gallbladder shows distended gallbladder and signs of early cholecystitis. Flagyl added to cefepime and vancomycin; clear liquid diet for now. N.p.o. from midnight for HIDA scan tomorrow a.m. as per surgery. JERI on CKD Possible ATN/interstitial nephritis Her creatinine was 2.3 on in [place]; creatinine 1.1 on 07/13/2024 Creatinine up trended to 3.14 CT abdomen pelvis does not show hydronephrosis Initially placed on bicarb drip; nephrology recommends IV Lasix 80 mg once which is given Roman in place for strict input and output monitoring. Left femur fracture infection infection Status post surgery at [place] Currently on IV Vanco and IV cefepime and p.o. voriconazole per ID recommendations with end date of 09/19/2024 Consulted infectious disease to determine antibiotics given JERI on CKD Type 2 Diabetes Stop metformin at discharge given patient declining GFR Will consider Jardiance at discharge Glargine and NovoLog while inpatient Constipation Stool softeners, continue Anemia Possible anemia of recent illness Hemoglobin was 9.2 on 01/2024 Hemoglobin 10.4 today Hemoglobin was 14 on 07/13/2024 Monitor for any bleeding Abnormal CT head CT head on admission showed possible soft tissue thickening noted on left parasellar and cavernous sinus region with maximum thickness of 11mm, could be artifact due to patient motion or extraaxial lesion or cavernous sinus lesion. MRI Brain rule out mass. DVT prophylaxis On heparin subcu monitor hb DNR/DNI as per discussion with patient's son over the phone. Please note the above document was generated using voice recognition software. It may contain grammatical, syntax or spelling errors. Any formal questions or concerns about the content, text or information contained within the body of this dictation should be directly addressed to the provider for clarification Admission and Anticipated Discharge Date Admission Date: August 27, 2024 Subjective Patient seen at bedside. She is lethargic; reports pain all over her body. She is able to answer simple question and follow simple commands. Vital signs are stable and she is saturating well on room air Review of Systems Review of Systems: All systems reviewed & are unremarkable except as noted in Subjective Physical Exam Physical Exam: Constitutional: Appears lethargic; able to answer simple questions. Respiratory: Bilateral vesicular breath sound. Cardiovascular: RRR, no murmur, no edema Vessels: no JVD or carotid bruit Chest: normal inspection of chest Abdomen: Diffuse tenderness, Ramos sign is negative Musculoskeletal: Healed scar on left knee with splint on the leg. Neurologic: PERRL, EOMI, accommodation nl, no face palsy, weak overall; strength 4/5 in lower extremity Results & Data Results & Data Vital Signs (Past 12 Hours) Vital Signs Temp Pulse Pulse Resp BP BP Pulse Ox 08/27/24 11:42 08/27/24 11:38 66 08/27/24 11:22 36.6 C 68 18 134/77 97 08/27/24 09:24 36.7 C 64 20 131/67 99 08/27/24 09:24 08/27/24 09:24 36.7 C 64 20 131/67 99 08/27/24 08:30 140/71 08/27/24 08:30 74 17 97 08/27/24 08:03 69 17 97 08/27/24 08:00 148/70 H 08/27/24 07:54 73 14 96 08/27/24 07:36 76 20 97 08/27/24 07:32 142/71 H 08/27/24 07:32 79 20 142/71 H 98 08/27/24 06:19 80 20 96/73 L 96 08/27/24 05:00 75 17 145/70 H 97 08/27/24 04:00 71 19 155/91 H 96 08/27/24 03:00 71 20 159/73 H 97 08/27/24 02:56 79 08/27/24 02:30 75 18 159/77 H 96 08/27/24 02:00 76 17 128/62 96 08/27/24 01:38 73 18 140/86 96 Pulse Ox O2 Del Method O2 Del Method O2 Flow Rate 08/27/24 11:42 Room Air 08/27/24 11:38 08/27/24 11:22 Room Air 08/27/24 09:24 Room Air 08/27/24 09:24 99 Room Air 0 08/27/24 09:24 Room Air 08/27/24 08:30 08/27/24 08:30 08/27/24 08:03 08/27/24 08:00 08/27/24 07:54 08/27/24 07:36 08/27/24 07:32 08/27/24 07:32 Room Air 08/27/24 06:19 Room Air 08/27/24 05:00 Room Air 08/27/24 04:00 Room Air 08/27/24 03:00 Room Air 08/27/24 02:56 08/27/24 02:30 Room Air 08/27/24 02:00 Room Air 08/27/24 01:38 Room Air
--- NOTE | 2024-08-27 13:45 | Magnetic Resonance Report ---
MR brain wo con HISTORY: 74 years-old Female abnormal ct head findings follow-up study in a patient with acutely alt ered mental status. COMPARISON: Head CT 08/27/2024 TECHNIQUE: Multiplanar multisequence MRI of the brain was obtained without IV contrast. FINDINGS: There is no restricted diffusion to suggest acute or subacute infarct. Midline structures appear unre markable. Motion degraded exam. Degenerative changes of the cervical spine. Partially empty sella. No acute intracranial hemorrhage, midline shift, abnormal extra-axial collection, hydrocephalus or intr a-axial mass. No pathologic blooming artifact. Involutional changes without significant T2/FLAIR hype rintense foci throughout the white matter. The cerebral venous sinuses and major arterial flow voids appear patent. Skull, orbits and soft tissues are unremarkable. Moderate mastoid effusions. IMPRESSION: 1. No acute intracranial abnormality. No acute or subacute infarct. 2. No intracranial mass identified. Equivocal findings described on the same day head CT were therefo re artifactual. 3. Bilateral mastoid effusions. ACT 112: Negative or not required by law. The above report was generated using voice recognition software. It may contain grammatical, syntax o r spelling errors. Electronically signed by: Gregorio Walton M.D. 08/27/2024 1:43 PM
[2024-08-27] MEDS: SODIUM BICARBONATE 8.4% 75 MEQ in DEXTROSE 5% 1,000 ML IV SCH (13:57)
[2024-08-27] MEDS: FUROSEMIDE 40 MG/4 ML VIAL IV ONE (14:09)
[2024-08-27] MEDS: metroNIDAZOLE 500 MG/100 ML BAG IV SCH (14:59)
[2024-08-27] MEDS: THIAMINE HCL 200 MG in SODIUM CHLORIDE 0.9% 50 ML IV SCH (18:47)
[2024-08-27 21:09] LABS: Calcium 8.5 mg/dl (8.6-10.3); Potassium 4.5 mmol/L (3.5-5.1)
[2024-08-27 21:15] LABS: BUN Creatinine Ratio 14.3 (10-20); Creatinine Clr Calc Pharmacy 17.2 ml/min
[2024-08-27] MEDS: SENNA 8.6 MG TAB PO SCH (22:05)
[2024-08-27] MEDS: HYDROmorphone INJ 0.5 MG/0.5 ML SYR IV STA (23:21)
[2024-08-28] MEDS: HYDROmorphone INJ 0.5 MG/0.5 ML SYR IV STA ×2 (01:50→06:09)
[2024-08-28] MEDS: LIDOCAINE 5% 1 PATCH TD STA (02:17)
--- OUTSIDE RECORDS SUMMARY | 2024-08-28 04:40 | External Medical Summary ---
Author Name Unknown Address Unknown Organization : Laboratory Report Ordering Provider Test Date Status JULIAN BENAVIDES 08/23/2024 05:40:00 Final Please collect lab prior to morning dose of voriconazole Observation Date Value Abnormality Reference (Units ) Status VORICONAZOLE 08/23/2024 05:40:00 4.5 (mcg/mL ) Final (Note)
Steady state trou gh levels are achieved within 1 day when an IV
loading dose is used and after approximately 5 days of oral or IV
therapy without a loading dose.
Therapeutic range:
- Prophylaxis: trough > 0.5 mcg/mL
- Therapeutic range for treatment: trough 2.0-5.5 mcg/mL
Serum trough levels less than or equal to 1 mcg/mL are reported to be
associated with lack of therapeutic response and serum trough levels
> 5.5 mcg/mL have been reported to be associated with reversible
neurological adverse events and hepatotoxicity.
Co-administration of drugs that metabolically induce or inhibit
[id number], or other conditions that affect [id number] may alter
voriconazole metabolism.
This test was developed and its analytical performance
characteristics have been determined by [employer].
It has not been cleared or approved by the FDA. This assay
has been validated pursuant to the CLIA regulations and is
used for clinical purposes.
MDF
[facility]
[address] [place] [address],[address]
[facility] [address]
[phone]
Radha Granado MD, PhD
Test performed by [facility]
[address] [place] [address]
[address]
[place], [place] [address]

Horticulture Superintendent: Radha Granado MD, PhD
Test Reported by [facility],
[facility],
[address] [place], [place]
Erik Gay M.D., Ph.D., Director of Laboratories
, [facility] [id number] Performing Location
--- OUTSIDE RECORDS SUMMARY | 2024-08-28 04:40 | External Medical Summary | Summary of Care ---
Author Name Unknown Organization [facility] Address [address] [place] [address] Phone [phone] Care Team Providers Care Php Developer Name Role Phone Unavailable Primary Care Provider Unavailabl e Reason for Referral * Evaluate & Treat - Unlimited Visits (Within 10 days (routine)) - Pending Review Specialty Diagnoses / Procedures Referred By Ruben stone Referred To Contact Pharmacist / Pharmacy Diagnoses Encounter for therapeutic drug level monitoring Citlali Capellan MD [address] [place] [address] Phone: tel: fax: Referral ID Status Reason Start Date Expiration Date Visits Requested Visits Authorized [id number] Pending Review Specialty Services Required 08/25/2024 02/21/2025 99 99 Question Answer Referral Priority Within 10 days (routine) Where should this appointment be scheduled? External Referring Provider Role: Specialist Specialty: ID Reason for Referral: OPAT Drug: Vancomycin Target Range: AUC 400-600 Comments Pharmacist Medication Therapy Management: Minimum frequency patient should be seen in person for medication management: as appropriate per clinical condition and patient status By my signature, I understand that my patient Anita Owens will have her medication therapy managed by the [facility] Medication Therapy Disease Management [facility] ([facility]) per established policies, procedures, and protocols. I also certify that this referral may serve as an initiation of service for the management of drug therapy in the above noted patient. [facility] providers will be responsible for scheduling patient visits, obtaining appropriate laboratory studies, and adjusting medication management therapy per patient's need, in addition to those roles spelled out in the clinic policy, procedures, and drug management protocols. I understand that the service provided by the [facility] is voluntary and have informed patient that they can refuse the service at their discretion. I am aware that the [facility] Clinic will provide me with a copy of the patient encounter via my [facility] [employer]. I authorize the [facility] to carry out these activities on my behalf. I consider this program to be a necessary part of the patient's medical care. Mickey Porter Jr [facility] Reason for Visit * Reason Onset Date Comments D[facility] Encounter Details Date Type Department Care Team ([facility] Contact Info) Description 08/25/2024 Telephone Infectious Disease, [place] [address], [place] [phone] Mickey Porter Jr. [facility] [address], [place] [phone] Dosage Adjustment Via Phone ([facility]) Allergies Active Allergy Reactions Criticality Noted Date Comments Penicillins 07/14/2024 Sorbitan 07/14/2024 documented as of this encounter (statuses as of 08/25/2024) Medications Ergocalciferol 1.25 MG (11165 UT) Oral Capsule (Vitamin D2(Drisdol)) Take 1 Capsule by mouth once a week. 30 Capsule 08/04/20 24 Active LiquaCel Oral Liquid Take 30 mL by mouth in the morning and 30 mL before bedtime. 1800 mL 07/29/20 24 025 Active Docusate Sodium 100 MG Oral Capsule (Colace) Take 1 Capsule by mouth in the morning and 1 Capsule before bedtime. 10 Capsule 07/29/20 24 Active 6.75-0.2 MG Oral Tablet Take 1 Tablet by mouth daily at noon. 60 Tablet 07/29/20 24 Active Cefepime-Dextrose 2-5 GM-%(50ML) Intravenous Solution Reconstituted Administer 2 g at 100 mL/hr over 30 minutes intravenously in the morning and 2 g before bedtime. 3000 mL 1 07/29/20 24 024 Active Baclofen 10 MG Oral Tablet (Lioresal) Take 1 Tablet by mouth 3 times a day as needed (muscle spasms). 08/01/20 Active metFORMIN HCl 850 MG Oral Tablet (Glucophage) Take 1 Tablet by mouth 2 times a day with morning and evening meals. (08001700) 08/01/20 Active Voriconazole 50 MG Oral Tablet (Vfend) Take 5 Tablets by mouth in the morning and 5 Tablets before bedtime. (). 08/07/20 24 Active Insulin Aspart 100 UNIT/ML Injection Solution (NovoLOG) Inject 4 Units under the skin in the morning and 4 Units at noon and 4 Units in the evening. Inject with meals. Hold if Glucose is less than 100. (09/1700). 08/14/20 24 Active Acetaminophen 325 MG Oral Tablet (Tylenol) Take 3 Tablets by mouth 3 times a day. () Active Saline Flush 0.9 % Intravenous Solution Administer 5 mL intravenously in the morning and 5 mL before bedtime. Before and after med administration. (). Active Polyethylene Glycol 3350 17 GM Oral Packet (Miralax) Take 1 Packet by mouth in the morning. Mix in 8 oz of fluid. (09). Active Senna 8.6 MG Oral Tablet Take 1 Tablet by mouth every evening. (190) Active oxyCODONE HCl 5 MG Oral Tablet (Oxy IR) Take 1 Tablet by mouth every 4 hours as needed for Pain, Moderate (can take 10 mg, 2 tabs, for severe pain, continuation of pain therapy). 10 Tablet 08/24/20 24 Active Heparin Sodium (Porcine) PF 5000 UNIT/0.5ML Injection Solution Inject 0.5 mL under the skin in the morning and 0.5 mL at noon and 0.5 mL before bedtime. 45 mL 08/24/20 24 025 Active Nystatin 921259 UNIT/ML Mouth/Throat Suspension Swish and swallow 5 mL in the morning and 5 mL at noon and 5 mL in the evening and 5 mL before bedtime. 60 mL 08/24/20 24 Active vancomycin IV IV (AMBULATORY) Administer 1,250 mg intravenously every other day for 26 days. 16.25 g 08/24/20 024 Active documented as of this encounter (statuses as of 08/25/2024) Active Problems Problem Noted Date Diagnosed Date Malnutrition of moderate degree 08/22/2024 Infection of orthopedic implant 08/17/2024 Generalized body aches 08/17/2024 History of open reduction an d internal fixation (ORIF) procedure 08/17/2024 DNR (do not resuscitate) 08/02/2024 Osteomyelitis 08/01/2024 Drug-induced constipation 08/01/2024 Vitamin D deficiency 08/01/2024 Age-related osteoporosis with current pathologic al fracture 08/01/2024 Delirium due to multiple etiologies 07/25/2024 Open fracture of distal end of left femur with n onunion 07/14/2024 Type 2 diabetes mellitus with hyperglycemia 06/21 Open comminuted intra-articu lar fracture of distal femur, left, type III, with routine healing, subsequent encounter 07/13/2024 Lactic acidosis Acute blood loss anemia Wound infection HLD (hyperlipidemia) HTN (hypertension) documented as of this encounter (statuses as of 08/25/2024) Resolved Problems Problem Noted Date Diagnosed Date Resolved Date Diabetic ketoacidosis withou t coma associated with type 2 diabetes mellitus 07/15/2024 08/01/2024 Open displaced comminuted fr acture of shaft of left femur 07/13/2024 08/01/2024 documented as of this encounter (statuses as of 08/25/2024) Immunizations Name Administration Dates Next Due Pneumococcal Conjugate Vaccine, 20-valent (Prevn ar20) 08/24/2024 Seasonal Influenza, High Dos e, Trivalent, PF, IM (Fluzone HD) 08/24/2024 documented as of this encounter Social History Tobacco Use Types Packs/Day Years Used Date Smoking Tobacco: Former Cigarettes Q uit: 1998 Smokeless Tobacco: Never Alcohol Use Standard Drinks/Week Comments Not Currently 0 (1 standard drink = 0.6 oz pur e alcohol) Comments No Sex and Gender Information Value Date Recorded Sex Assigned at Not on file Legal Sex Female 9:30 PM EDT Gender Identity Not on file Sexual Orientation Not on file documented as of this encounter Functional Status * Are you deaf or do you have serious difficulty hearing? Answer Date of Assessment Author No 08/16/2024 11:21 PM Regina Ritchie RN * Are you blind or do you have serious difficulty seeing, even when wearing glasses? Answer Date of Assessment Author No 08/16/2024 11:21 PM Regina Ritchie RN * Do you have serious difficulty walking or climbing stairs? (5 years old or older) Answer Date of Assessment Author Yes 08/16/2024 11:21 PM Regina Ritchie RN * Do you have difficulty dressing or bathing? (5 years old or older) Answer Date of Assessment Author Yes 08/16/2024 11:21 PM Regina Ritchie RN * Because of a physical, mental, or emotional condition, do you have difficulty doing errands alone such as visiting a doctors office or shopping? (15 years old or older) Answer Date of Assessment Author Yes 08/16/2024 11:21 PM Regina Ritchie RN documented as of this encounter Mental Status * Because of a physical, mental, or emotional condition, do you have serious difficulty concentrating, remembering, or making decisions? (5 years old or older) Answer Entry Date Author No 08/16/2024 11:21 PM Regina Ritchie RN documented in this encounter Miscellaneous Notes * Telephone Encounter - Charlotte Oseguera, Mickey Velez, [facility] - 08/25/2024 8:45 AM EST [facility] PHARMACY OUTPATIENT PHARMACOKINETIC CONSULT [address] [place] [address] Name: Anita Owens Date/Time: @TDR@ 8:45 AM Patient on Outpatient Parenteral Antimicrobial Therapy with monitoring and management by [facility] Infectious Disease [facility] Pharmacist under Collaborative Practice Agreement with [facility] Infectious Disease physician Dr. Citlali Capellan. 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 Timo Dinero Imaging/Other Testing Needed: N/A Intravascular Access Device: Plan needed LABORATORY MONITORING Ordered Weekly: CBC/diff, CMP, and Vancomycin level(s) for AUC monitoring Ordered Every 2 weeks: N/A Lab information: Lab Results Component Value Date/Time WBC 4.93 08/24/2024 08:13 AM WBC 5.22 08/23/2024 05:40 AM WBC 5.51 08/22/2024 06:43 AM WBC 5.30 08/21/2024 07:54 AM WBC 5.12 08/20/2024 07:39 AM Lab Results Component Value Date/Time BUN 35 (H) 08/24/2024 08:13 AM BUN 35 (H) 08/23/2024 08:32 AM BUN 35 (H) 08/22/2024 09:50 PM BUN 38 (H) 08/22/2024 08:19 AM BUN 42 (H) 08/21/2024 08:35 PM Lab Results Component Value Date/Time CREAT 2.3 (H) 08/24/2024 08:13 AM CREAT 2.0 (H) 08/23/2024 08:32 AM CREAT 2.1 (H) 08/22/2024 09:50 PM CREAT 2.1 (H) 08/22/2024 08:19 AM CREAT 2.3 (H) 08/21/2024 08:35 PM Wt Readings from Last 1 Encounters: 08/17/24 78.9 kg (174 lb) Levels to date: Lab Results Component Value Date/Time VANCORANDOM 19.2 08/24/2024 08:13 AM VANCORANDOM 11.2 07/16/2024 06:37 AM GENTRANDOM 5.0 07/14/2024 01:25 PM Assessment and Plan: Continue with scheduled dosing of Vancomycin 1250 mg q 48 hours. Dosing was complete on 08/24 so informed DONTAE Torrez abattoir supervisor to start on 08/26. CBC/diff, CMP today with CMP and Vancomycin level on Tuesday 08/28 Voriconazole level was ordered while inpatient on 08/23. Results pending for that - Orders/plan communicated with Lore at [facility] Infectious Disease [facility] Pharmacist will continue to follow. Contact info for questions/concerns: [facility] Infectious Disease [facility] Pharmacist at [phone] Mickey Porter Jr, [facility] Clinical Pharmacist [facility] Infectious Disease [facility] 08/25/2024, 8:45 AM Electronically signed by Charlotte Oseguera, Mickey Velez [facility] at 08/25/2024 8:57 AM EST documented in this encounter Plan of Treatment Upcoming Encounters Date Type Department Care Team (Late st Contact Info) Description 08/28/2024 11:20 AM EST Office Visit Infectious Disease, [place] [address] [place] [address] Mari Vincent MD [address] [place] [address] 08/29/2024 10:00 AM EST Office Visit Endocrinology [address] [place], [place] [address] [place] [address] Arvind Pena CRNP [address] [place] [address] 09/04/2024 10:15 AM EST Office Visit Orthopaedics, [place] [address] [place] [address] Andi Willson Jr., MD [address] [place] [address] 10/31/2024 8:00 AM EST Appointment Radiology, [address] [id number] 10/31/2024 9:00 AM EST Office Visit Rheumatology, [address] [address] Gary Hanna PA-C [email or web address] [address] Scheduled Referrals Name Type Priority Associated Diagnoses Orde r Schedule PHARMACIST MEDS THERAPY MGMT REFERRAL OP Referral Within 10 days (routine) Encounter for therapeutic drug level monitoring Ordered: 08/25/2024 Health Maintenance Due Date Last Done Comments Lipid Panel 1951 Depression Screening 1963 Albumin/Creatinine Ratio 1969 Diabetic Eye Exam 1969 Diabetic Foot Exam 1969 Hepatitis C Screening 1969 Mammogram 1991 Cologuard 1996 Colonoscopy 1996 Colorectal Cancer Screening 1996 Fecal Occult Blood Test 1996 Sigmoidoscopy 1996 DXA Scan 2001 Zoster Vaccines (1 of 2) 2001 COVID-19 Vaccine ( season) 2024 HbA1c 01/12/2025 07/14/2024 GFR 08/24/2025 08/24/2024, 1212/2023, 08/22/2024, Additional history exists DTap/Tdap Vaccines (2 - Td or Tdap) 07/13/2034 07/13/2024 VITAMIN D LEVEL ONCE IN A LIFETIME-USE SMARTSET# [id number] Completed 07/14/2024 Influenza Vaccine (FLU shot) Completed 08/24/2024 Pneumococcal Vaccine: 65+ Years Completed 08/24/2024 HPV (Gardasil) Vaccine Aged Out No lo nger eligible based on patient's age to complete this topic Hepatitis B Vaccine Aged Out No longe r eligible based on patient's age to complete this topic MENINGOCOCCAL (MENACTRA/MENVEO) Aged Out No longer eligible based on patient's age to complete this topic documented as of this encounter Medical Devices Implanted Type Area Junior Systems Administrator Device Identifier Shelf Expiration Date Model / Serial / Lot Pin Transfix 56mm [id number] - [id number] Implanted:Qty: 1 on 07/14/2024 by Anamika Oseguera, Andi Tapia MD at [facility] Left: Leg Upper DUSTIN : TRAUMA 5050-4-300 / / Cement Bone Full Mix Surg Simp - [id number] Implanted:Qty: 1 on 07/16/2024 by Andi Willson Jr., MD at OR [facility] [place] Left: Leg Upper DUSTIN : ORTHOPAEDICS 07/20/2026 6191-1-010 / / [id number] Cement Bone Full Mix Surg Simp - [id number] Implanted:Qty: 1 on 07/18/2024 by Andi Willson Jr., MD at OR [facility] [place] [facility] Left: Leg Upper DUSTIN : ORTHOPAEDICS 04/19/2026 6191--010 / / [id number] Screw Canc A3 Ti 4x70mm Ft - [id number] Implanted:Qty: 1 on 07/20/2024 by Andi Willson Jr., MD at OR [facility] [place] Left: Leg Upper DUSTIN : TRAUMA 258661 / / Screw Canc A3 Ti 4x65mm Ft - [id number] Implanted:Qty: 1 on 07/20/2024 by Andi Willson Jr., MD at OR [facility] [place] Left: Leg Upper DUSTIN : TRAUMA 789304 / / 5.0x70 Lock Screw Implanted:Qty: 1 on 07/20/2024 by Andi Willson Jr., MD at OR [facility] [place] Left: Leg Upper DUSTIN 399871 / / 5.0 X 80 Lock Screw Implanted:Qty: 2 on 07/20/2024 by Andi Willson Jr., MD at OR [facility] [place] Left: Leg Upper DUSTIN [id number] / / Peripro Distal Femur Plate Right Implanted:Qty: 1 on 07/20/2024 by Andi Willson Jr., MD at OR [facility] [place] Left: Leg Upper DUSTIN 260681 / / 5.0 X 12 Flat Tip Locking Screw Implanted:Qty: 2 on 07/20/2024 by Andi Willson Jr., MD at OR [facility] [place] [facility] Left: Leg Upper DUSTIN [id number] / / 5.0 X 14 Lock Screw Implanted:Qty: 1 on 07/20/2024 by Andi Willson Jr., MD at OR [facility] [place] [facility] Left: Leg Upper DUSTIN 984081 / / 5.0 X 75 Lock Screw Implanted:Qty: 1 on 07/20/2024 by Andi Willson Jr., MD at OR [facility] [place] Left: Leg Upper DUSTIN 838434 / / Screw Nlk A3 Ti 3.5x36mm - [id number] Implanted:Qty: 1 on 07/20/2024 by Andi Willson Jr., MD at OR [facility] [place] Left: Leg Upper DUSTIN : TRAUMA 001555 / / Screw Nlk A3 Ti 3.5x38mm - [id number] Implanted:Qty: 1 on 07/20/2024 by Andi Willson Jr., MD at OR [facility] [place] Left: Leg Upper DUSTIN : TRAUMA 216331 / / Screw Nlk A3 Ti 3.5x38mm - [id number] Implanted:Qty: 1 on 07/20/2024 by Andi Willson Jr., MD at OR [facility] [place] Left: Leg Upper DUSTIN : TRAUMA 378486 / / Washer For 4.0mm Jfx - [id number] Implanted:Qty: 1 on 07/20/2024 by Andi Willson Jr., MD at OR [facility] [place] Left: Leg Upper DUSTIN : TRAUMA 749690 / / Washer For 4.0mm Jfx - [id number] Implanted:Qty: 1 on 07/20/2024 by Andi Willson Jr., MD at OR [facility] [place] [facility] Left: Leg Upper DUSTIN : TRAUMA 443188 / / Washer For 4.0mm Jfx - [id number] Implanted:Qty: 1 on 07/20/2024 by Andi Willson Jr., MD at OR [facility] [place] [facility] Left: Leg Upper DUSTIN : TRAUMA [id number] / / Cement Antibiotic Bone - [id number] Implanted:Qty: 1 on 07/20/2024 by Andi Willson Jr., MD at OR [facility] [place] [facility] Left: Leg Upper DUSTIN : ORTHOPAEDICS 05/20/2025 6197-9-010 / / [id number] Cement Antibiotic Bone - [id number] Implanted:Qty: 1 on 07/20/2024 by Andi Willson Jr., MD at OR [facility] [place] [facility] Left: Leg Upper DUSTIN : ORTHOPAEDICS 05/20/2025 6197-9-010 / / [id number] Cement Antibiotic Bone - [id number] Implanted:Qty: 1 on 07/20/2024 by Andi Willson Jr., MD at OR [facility] [place] [facility] Left: Leg Upper DUSTIN : ORTHOPAEDICS 07/20/2025 6197-9-010 / / [id number] Cement Antibiotic Bone - [id number] Implanted:Qty: 1 on 07/20/2024 by Andi Willson Jr., MD at OR [facility] [place] Left: Leg Upper DUSTIN : ORTHOPAEDICS 07/20/2025 6197-9-010 / / [id number] Cement Antibiotic Bone - [id number] Implanted:Qty: 1 on 07/20/2024 by Andi Willson Jr., MD at OR [facility] [place] Left: Leg Upper DUTSIN : ORTHOPAEDICS 07/20/2025 6197-9-010 / / [id number] Cement Antibiotic Bone - [id number] Implanted:Qty: 1 on 07/20/2024 by Andi Willson Jr., MD at OR [facility] [place] [facility] Left: Leg Upper DUSTIN : ORTHOPAEDICS 07/20/2025 6197-9-010 / / [id number] Cement Antibiotic Bone - [id number] Implanted:Qty: 1 on 07/20/2024 by Andi Willson Jr., MD at OR [facility] [place] [facility] Left: Leg Upper DUSTIN : ORTHOPAEDICS 07/20/2025 6197-9-010 / / [id number] documented as of this encounter Visit Diagnoses Diagnosis Encounter for therapeutic drug level monitoring- Primary Encounter for therapeutic drug monitoring documented in this encounter Advance Directives * Full Code (Latest Code Status on File) Date Activated Date Inactivated Comments 08/16/2024 9:06 PM 08/24/2024 3:54 PM This order reflects the patients wishes and were consensually agreed upon. Question Answer Comments Discussion of Advance Direct sung occurred with: Not Discussed due to patient's condition * Full Code Date Activated Date Inactivated Comments 07/14/2024 3:19 AM 07/29/2024 5:54 PM Question Answer Comments Discussion of Advance Direct sung occurred with: Not Discussed due to patient's condition Healthcare Agents on File Name Relationship Healthcare Agent Relationshi p Communication Ronald Alejandra Adult Child Health Care Agen t (per Health Care Power of Wind Farm Engineer document)
[2024-08-28 06:10] LABS: Albumin Globulin Ratio 0.8 (0.9-2); Albumin Level 2.9 gm/dl (3.4-5.0); BUN Creatinine Ratio 14.8 (10-20); Bilirubin,Total 0.4 mg/dl (0.2-1.0); Calcium 8.7 mg/dl (8.6-10.3); Creatinine Clr Calc Pharmacy 16.7 ml/min; Globulin 3.6 gm/dl (2.5-4.0); Potassium 4.4 mmol/L (3.5-5.1); Total Protein 6.5 gm/dl (6.0-8.3)
--- NOTE | 2024-08-28 07:43 | Surgery Progress Note ---
Date of Service August 28, 2024 Assessment & Plan (1) Cholelithiasis: Plan: pt moaning , states pain is all over body knows she is in the hospital but unable to answer date/time TTP all quadrants of abd low grade temp noted this AM 99.1 otherwise VSS HIDA scan is pending this AM keep npo will follow Admission and Anticipated Discharge Date Admission Date: August 27, 2024 Supervising Physician Co-Signing Physician Notes Patient seen and examined, labs and imaging reviewed, agree with above. Recent discharge from [place] following fracture with multiple surgeries followed by infection being treated with multiple antibiotics. She was admitted for abdominal pain and acute on chronic kidney injury. Suffers from dementia, does say she has pain everywhere. On exam she is afebrile with stable vitals. Her abdomen is soft, mildly but diffusely tender to palpation in all 4 quadrants. WBC normal, ultrasound and CT scan personally viewed and interpreted as well as reviewed with one of our radiologist. There is some small amount of sludge in the gallbladder and it is distended, however there is no gallbladder wall thickening or pericholecystic fluid. This is equivocal for cholecystitis. We would recommend a HIDA scan. This has been delayed today due to patient's frailty. She does not seem like a very good surgical candidate. We would recommend a HIDA scan to confirm a diagnosis of cholecystitis, and if positive she may benefit from percutaneous cholecystostomy tube. Subjective pt moaning , states pain is all over denies emesis knows she is in the hospital but unable to answer date/time Review of Systems Gastrointestinal: + abdominal pain Physical Exam Respiratory: normal respiratory effort; no respiratory distress Cardiovascular: Rate/Rhythm: regular rate Gastrointestinal (Abdomen): Inspection/Auscultation: + abdominal surgical scar; abdomen not distended Percussion/Palpation: + abdomen tender ("hurts all over ") and abdomen soft Psychiatric: Orientation: oriented to place; + not oriented to time Results & Data Vital Signs (Past 12 Hours) Vital Signs Temp Pulse Pulse Resp BP Pulse Ox O2 Del Method 08/28/24 02:46 99.1 F 68 18 147/74 H 94 Room Air 08/27/24 23:00 98.6 F 67 18 142/62 H 95 Room Air 08/27/24 22:11 Room Air 08/27/24 21:43 72 Results CBC w Diff Results: RBC 3.11 M/uL (4.20-5.40) L 08/28/24 WBC 6.45 K/ul (4.8-10.8) 08/28/24 Hgb 8.9 g/dl (12.0-16.0) L 08/28/24 Hct 29.4 % (37.0-47.0) L 08/28/24 MCV 94.5 fL (80.0-100.0) 08/28/24 MCH 28.6 pg (25.0-34.0) 08/28/24 MCHC 30.3 g/dL (32.0-36.0) L 08/28/24 RDW Standard Deviation 58.4 fL (36.4-46.3) H 08/28/24 RDW Coefficient of Variation 17.1 % (11.5-14.5) H 08/28/24 Plt Count K/uL (130-400) 08/28/24 MPV fL (9.4-12.4) 08/28/24 Neutrophils (%) (Auto) 77.1 % 08/28/24 Lymphocytes (%) (Auto) 15.0 % 08/28/24 Monocytes # (Auto) 0.43 K/uL (0.11-0.59) 08/28/24 Eosinophils # (Auto) 0.01 K/uL (0.00-0.50) 08/28/24 Immature Granulocyte % (Auto) 0.8 % 08/28/24 Neutrophils # (Auto) 4.98 K/uL (1.40-6.50) 08/28/24 Lymphocytes # (Auto) 0.97 K/uL (1.20-3.40) L 08/28/24 Monocytes # (Auto) 0.43 K/uL (0.11-0.59) 08/28/24 Eosinophils # (Auto) 0.01 K/uL (0.00-0.50) 08/28/24 Basophils # (Auto) 0.01 K/uL (0.00-0.20) 08/28/24 Immature Granulocyte # (Auto) 0.05 K/uL (0.01-0.20) 4 Echinocytes 1+ 08/26/24 PG Care Time/CCT Total # of Minutes Spent Total Time Spent with Patient: Total time spent is greater than 50% in coordination of care (as documented) at patient's floor/unit and/or counseling patient: Coding Level of Care Code 82062 SUB INP/OBS CARE Diagnoses Cholelithiasis K80.20
[2024-08-28 07:53] LABS: Hematocrit (blood only) 29.4 % (37.0-47.0); Hemoglobin 8.9 g/dl (12.0-16.0); Mean Corpuscular Hemoglobin 28.6 pg (25.0-34.0); Mean Corpuscular Hgb Conc 30.3 g/dL (32.0-36.0); Mean Corpuscular Volume 94.5 fL (80.0-100.0); RDW Coefficient of Variation 17.1 % (11.5-14.5); RDW Standard Deviation 58.4 fL (36.4-46.3); Red Blood Count 3.11 M/uL (4.20-5.40); White Blood Count 6.45 K/ul (4.8-10.8)
[2024-08-28 07:54] LABS: Basophils # (auto) 0.01 K/uL (0.00-0.20); Basophils % (auto) 0.2 %; Eosinophils # (auto) 0.01 K/uL (0.00-0.50); Eosinophils % (auto) 0.2 %; Immature Granulocytes # (auto) 0.05 K/uL (0.01-0.20); Immature Granulocytes % (auto) 0.8 %; Lymphocytes # (auto) 0.97 K/uL (1.20-3.40); Monocytes # (auto) 0.43 K/uL (0.11-0.59); Monocytes % (auto) 6.7 %; Neutrophils # (auto) 4.98 K/uL (1.40-6.50); Neutrophils % (auto) 77.1 %
[2024-08-28 08:08] LABS: Creatinine Urine Random 69.3 mg/dl; Microalbumin Creatinine Ratio 156.9 mg/g (0-30); Microalbumin Urine 108.8 mg/L; Protein Creatinine Ratio Urine 2.9 (0-0.2); Total Protein Urine Random 201.9 mg/dl (0-11.9)
[2024-08-28] MEDS: VANCOMYCIN HCL 1,250 MG in SODIUM CHLORIDE 0.9% 250 ML IV ONE (09:01)
[2024-08-28] MEDS: VORICONAZOLE 200 MG TABLET PO SCH ×2 (09:04→09:29)
[2024-08-28] MEDS: ONDANSETRON INJ 2 MG/ML 2 ML VIAL IV PRN (09:11)
--- NOTE | 2024-08-28 09:13 | Hospitalist Progress Note ---
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 As per chart review in [facility], Residents trauma surgery notes :"Patient seems to have a fall and noted to have open left distal femur fracture on 07/14 that required serial debridements prior to operative fixation and eventual discharge on 07/29 and antibiotic therapy via PICC line. She was readmitted on 08/16 with generalized malaise and a tracking around the surgical bed on CT scanning. ID and orthopedic surgery were consulted and adjusted antibiotics and CRP has been followed. Ortho deferred operative management at this time as CRP has been stabilized with a plan to proceed with IV antibiotic therapy. She is currently on IV vancomycin and IV cefepime and p.o. voriconazole with end date of 09/19/2024. To follow-up with orthopedics and ID. Patient was discharged to [facility] on August 24, 2024. Nausea and vomiting Abdominal pain Acute Cholecystitis Patient presented to the hospital with abdominal pain, nausea and vomiting. Ultrasound gallbladder shows distended gallbladder and signs of early cholecystitis. Flagyl added to cefepime and vancomycin; Discussed with ID on 08/28; vancomycin changed to daptomycin as per ID Initially plan was to do HIDA scan; however, due to patient habitus/fracture; difficult to undergo HIDA scan. Discussed with surgery; they recommend perc utaneous cholecystostomy. Discussed with [facility] as patient was recently discharged from there on 08/24/2024; patient accepted for transfer. JERI on CKD Possible ATN/interstitial nephritis Hypernatremia Her creatinine was 2.3 on in [place]; creatinine 1.1 on 07/13/2024 Creatinine up trended to 3.14 CT abdomen pelvis does not show hydronephrosis Roman in place for strict input and output monitoring. Started on D5 for hypernatremia Left femur fracture infection infection Status post surgery at [place] was on IV Vanco and IV cefepime and p.o. voriconazole per ID recommendations with end date of 09/19/2024 ID recommended to change vancomycin to daptomycin. Type 2 Diabetes Stop metformin at discharge given patient declining GFR Will consider Jardiance at discharge Glargine and NovoLog while inpatient Constipation Stool softeners, continue Anemia Possible anemia of recent illness Hemoglobin was 9.2 on 01/2024 Hemoglobin 10.4 today Hemoglobin was 14 on 07/13/2024 Monitor for any bleeding Abnormal CT head CT head on admission showed possible soft tissue thickening noted on left parasellar and cavernous sinus region with maximum thickness of 11mm, could be artifact due to patient motion or extraaxial lesion or cavernous sinus lesion. MRI Brain rule out mass/acute findings. DVT prophylaxis On heparin subcu monitor hb DNR/DNI as per discussion with patient's son over the phone. Updated son over the phone. Agreeable to transfer. Time spent evaluating patient, direct bedside care, chart review, placing orders, interpretation of diagnostic studies, discussion with consultants, pat ient, and family members, as well as other required patient management activities is 75 minutes Please note the above document was generated using voice recognition software. It may contain grammatical, syntax or spelling errors. Any formal questions or concerns about the content, text or information contained within the body of this dictation should be directly addressed to the provider for clarification Admission and Anticipated Discharge Date Admission Date: August 27, 2024 Subjective Patient seen and examined at bedside Patient is sleepy; awake able by verbal command. She reports pain all over her body Vital signs are stable and she is saturating well on room air Review of Systems Review of Systems: All systems reviewed & are unremarkable except as noted in Subjective Physical Exam Physical Exam: Constitutional: Appears lethargic; able to answer simple questions. Respiratory: Bilateral vesicular breath sound. Cardiovascular: RRR, no murmur, no edema Vessels: no JVD or carotid bruit Chest: normal inspection of chest Abdomen: Diffuse tenderness, RUQ pain Musculoskeletal: Healed scar on left knee with splint on the leg. Neurologic: PERRL, EOMI, accommodation nl, no face palsy, weak overall; strength 4/5 in lower extremity Results & Data Results & Data Vital Signs (Past 12 Hours) Vital Signs Temp Pulse Pulse Resp BP Pulse Ox O2 Del Method 08/28/24 08:17 72 08/28/24 08:09 36.7 C 70 18 161/66 H 96 Room Air 08/28/24 08:06 Room Air 08/28/24 02:46 37.3 C 68 18 147/74 H 94 Room Air 08/27/24 23:00 37.0 C 67 18 142/62 H 95 Room Air 08/27/24 22:11 Room Air 08/27/24 21:43 72
[2024-08-28] MEDS: DEXTROSE 5% 1,000 ML IV SCH (09:23)
--- NOTE | 2024-08-28 10:50 | Pharmacy Report ---
Pharmacy PK ABX Note - Date of Service August 28, 2024 - Assessment and Plan Assessment 08/28 random level came back 14.3 vancomycin 1250mg one time dose. 08/27 74 year old F receiving Vancomycin + Cefepime + Metronidazole + Voriconazole for treatment of osteomyelitis as well as possible acute cholecystitis. * Patient comes from [facility] and has been receiving Vancomycin and Cefepime as an outpatient. * Per review of [facility] records, patient suffered a fall and open left distal femur fracture on 07/14 that has required serial debridements and operative fixation. Discharged on 07/29/24 but readmitted 08/16/24. Plan was to medically manage with vancomycin, cefepime and voriconazole. Appears end date is going to be 09/29/23 per most recent MTM note. * Cultures from [facility] review have grown Serratia marcescens as well as several molds. * Upon presentation to [facility], patient is afebrile and without leukocytosis. SCr increased to 3.14 mg/dL today. Plan Vancomycin * give vancomycin 1250mg one dose. Her home dose is q2d, so the next dose expected to be on 08/30. We will repeat level tomorrow to re assess. Cefepime * 1000 mg IV every 12 hours is appropriate per renal fxn Metronidazole * 500 mg IV every 8 hours is appropriate for possible GI infxn Voriconazole * 250 mg IV every 12 hours Pharmacy will continue to follow and will adjust dose/frequency as necessary. Thank you. Pharmacy has transitioned to AUC monitoring for vancomycin. AUC/SALIMA is the preferred PK/PD target and is associated with decreased risk of nephrotoxicity compared to traditional trough targets.
--- NOTE | 2024-08-28 11:23 | Nephrology Progress Note ---
Date of Service August 28, 2024 Assessment & Plan Admission and Anticipated Discharge Date Admission Date: August 27, 2024 Subjective Assessment & Plan (1) JERI (acute kidney injury): On [facility] chart review her serum creatinine was 0.9 on 08/09/2024, since then this has been in mid 2s, he did not have any contrast study recently(reviewed both in [facility] and [facility]) he is on 5 tablets(each 50 mg), twice daily of voriconazole, since 08/07/2024, with 2 g cefepime twice daily(since 07/29/2024), and vancomycin 1250 mg every other day(since 08/24/2024), he also had cefozolin and gentamicin when he was admitted in [facility] from 07/13 to 07/29 Serum creatinine ,on 08/25 ---2.36 which has risen to 3.14 but has not gone up further overnight. She is making urine. but does seem to be gaining weight. has lot of edema but then na is high and is NPO and Appears to have Dry MM--Ok to give 1000 ml of d5w today but do have to be careful. this looks like toxic ATN ---- in the setting of infection/Abx use. Need to rationalize antibiotics, please consult ID, regarding present antibiotics and antifungal(voriconazole) monitor BMP daily, accurate input and output and daily weights preferably on the same scale. he got both IVF and one dose of lasix so far. (2) Cholelithiasis: As per GI/ primary team. Currently being managed NPO. pending HIDA scan Plan discussed with Dr Duron. Time spent 35 mins o---Appears confused and weak. eyes closed and did not answer questions. Physical Exam Physical Exam: General- Confused. Lungs- clear to auscultation no wheezing or crackles seen. Heart- regular rate and rhythm; no murmur, no gallop. Abdomen- normal bowel sounds, soft, diffuse tenderness, no distension Extremities- 1+ edema, left lower extremity thornton in immobilizer, healing surgical scar seen on left knee. Neuro- alert, oriented x 1; PERRL, confused. obeys simple commands Results & Data Vital Signs (Past 12 Hours) Vital Signs Temp Pulse Pulse Resp BP Pulse Ox Pulse Ox 08/28/24 09:25 96 08/28/24 08:17 72 12/09/24 08:09 36.7 C 70 18 161/66 H 96 08/28/24 08:06 08/28/24 02:46 37.3 C 68 18 147/74 H 94 O2 Del Method O2 Del Method 08/28/24 09:25 Room Air 08/28/24 08:17 08/28/24 08:09 Room Air 08/28/24 08:06 Room Air 08/28/24 02:46 Room Air
[2024-08-28] MEDS ORDERED: Nursing to Pharmacy Communication SCH (11:30)
[2024-08-28] MEDS: oxyCODONE HCL IR 5 MG TAB (IMMEDIATE RELEASE) PO PRN (11:38)
[2024-08-28] MEDS: INSULIN ASPART PER UNIT CHARGE SC SCH (12:55)
--- NOTE | 2024-08-28 13:30 | Infectious Disease Consult ---
Date of Service August 28, 2024 Telehealth Information I performed this visit using a real-time telehealth connection between my location and the patients location ([facility]). After connecting through interactive tele-video, patient was identified by name and date of and/or wristband check.Patient (or authorized healthcare maintenance representative) was informed that this was a telemedicine visit and it was being conducted confidentially over secure lines. My office door was closed and no one else was present in the room with me.Patient (or authorized healthcare maintenance representative) provided consent to proceed with the visit, expressed an understanding of privacy and security of the telemedicine visit, and gave permission to have a hospital maintenance representative in the room in order to assist with the visit and to conduct portions of the visit, as needed. I informed the patient (or authorized healthcare maintenance representative) that I reviewed their record and presented the opportunity for them to ask any questions regarding the visit today. The patient agreed to participate. Assessment & Plan (1) Cholecystitis: (2) Infection associated with internal fixation device: (3) Status post open reduction and internal fixation (ORIF) of fracture: Plan Please continue on IV cefepime and IV Flagyl to cover for cholecystitis and continue to cover for presumed infection of the left distal femur osteomyelitis. Please start IV daptomycin to cover for presumed left distal femur orthopedic hardware infection. Also, continue on oral voriconazole. THIS NOTE IS NOT BILLABLE I WAS UNABLE TO SEE THE PATIENT BECAUSE OF SOFTWARE ISSUES. History of Present Illness History of Present Illness Ms. Rucker is a 74 year old woman with a history of type 2 diabetes and recent open left distal femur fracture who was admitted to [facility] on 08/27/2024 because of nausea, vomiting and abdominal pain. In late Jun 2024, she sustained a grade 3A open left distal femur fracture and underwent several operative debridements prior to fixation. Cultures at that time grew Serratia and mold. Therefore, per our recommendations, she was sent out on IV cefepime and voriconazole. She recently got admitted to [facility] with CT left lower extremity concerning for surgical bed emphysema and possible osteomyelitis. She was seen by the orthopedic team and they decided are no surgical intervention. We eventually sent out on IV cefepime, IV vancomycin and oral voriconazole with anticipated end date of 08/28/2024. This time, she was transferred from her detention because of nausea, vomiting and abdominal pain. On presentation, her vitals showed hypertension of 152/86; otherwise, the rest of the vitals were within normal limits. Her blood workup was significant for anion gap acidosis with JERI on top of CKD. CT abdomen pelvis showed distended gallbladder with increased density but no pe richolecystic fat stranding or fluid collection. An ultrasound showed a distended gallbladder with mud and early signs of cholecystitis. ID team was consulted for further recommendations and to help guide antibiotic treatment. Allergies Allergy/AdvReac Type Severity Reaction Status Date / Time ether Allergy Unknown Verified 07/13/24 20:58 Penicillins Allergy Unknown Verified 07/13/24 20:58 Home Medications Medication Instructions Recorded Confirmed Type acetaminophen 325 mg tablet 650 mg PO QID PRN Pain 08/27/24 08/27/24 History amino acids-protein hydrolysate 16 30 ml PO BID 08/27/24 08/27/24 History gram-100 kcal/30 mL oral liquid (Liquacel) baclofen 10 mg tablet 10 mg PO TID PRN Spasms 08/27/24 08/27/24 History cefepime 2 gram solution for 2 g IV Q12H 08/27/24 08/27/24 History injection docusate sodium 100 mg capsule 100 mg PO BID 08/27/24 08/27/24 History (Colace) ergocalciferol (vitamin D2) 1,250 1,250 mcg PO WK 08/27/24 08/27/24 History mcg (50,000 unit) capsule heparin (porcine) 5,000 unit/0.5 5,000 unit TID 08/27/24 08/27/24 History mL injection syringe insulin aspart U-100 100 unit/mL 4 unit subcut USEASDIRECTD 08/27/24 08/27/24 History subcutaneous solution metformin 850 mg tablet 850 mg PO BID 08/27/24 08/27/24 History nystatin 100,000 unit/mL oral 5 ml PO ACHS 08/27/24 08/27/24 History suspension oxycodone 5 mg tablet 5 mg PO Q4H PRN Pain, Moderate 08/27/24 08/27/24 History polyethylene glycol 3350 17 gram 17 g PO DAILY 08/27/24 08/27/24 History oral powder packet (Miralax) sennosides 8.6 mg tablet (senna) 8.6 mg PO HS 08/27/24 08/27/24 History sodium chloride 0.9 % (flush) 5 ml IV UD 08/27/24 08/27/24 History voriconazole 50 mg tablet 250 mg PO Q12H 08/27/24 08/27/24 History Patient History Social History Smoking Status: Unknown if ever smoked Preferred Language: Polish 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 Physical Exam Could not be performed as the visit was conducted via TeleMed. Results & Data Vital Signs (Past 12 Hours) Vital Signs Temp Pulse Pulse Resp BP Pulse Ox Pulse Ox 08/28/24 11:45 36.9 C 70 18 151/76 H 96 08/28/24 09:25 96 08/28/24 08:17 72 08/28/24 08:09 36.7 C 70 18 161/66 H 96 08/28/24 08:06 08/28/24 02:46 37.3 C 68 18 147/74 H 94 O2 Del Method O2 Del Method 08/28/24 11:45 Nasal Cannula 08/28/24 09:25 Room Air 08/28/24 08:17 08/28/24 08:09 Room Air 08/28/24 08:06 Room Air 08/28/24 02:46 Room Air Laboratory Results Microbiology: 08/27: 2 sets of blood culture negative to date Diagnostic Findings Ultrasound gallbladder on 08/27/2024: 1. The liver shows course parenchyma of chronic parenchymatous disease. 2. A distended gall bladder with mud was noted and signs of early cholecystitis were seen.
[2024-08-28] MEDS: LIDOCAINE 5% 1 PATCH TD SCH (20:33)
[2024-08-29 07:21] LABS: Albumin Globulin Ratio 0.8 (0.9-2); Albumin Level 2.7 gm/dl (3.4-5.0); BUN Creatinine Ratio 16.9 (10-20); Bilirubin,Total 0.5 mg/dl (0.2-1.0); Calcium 8.2 mg/dl (8.6-10.3); Creatinine Clr Calc Pharmacy 16.6 ml/min; Globulin 3.3 gm/dl (2.5-4.0); Potassium 3.9 mmol/L (3.5-5.1)
[2024-08-29 07:22] VITALS: TEMP 98.1
[2024-08-29 07:53] LABS: Hematocrit (blood only) 27.4 % (37.0-47.0); Hemoglobin 8.4 g/dl (12.0-16.0); Mean Corpuscular Hemoglobin 28.6 pg (25.0-34.0); Mean Corpuscular Hgb Conc 30.7 g/dL (32.0-36.0); Mean Corpuscular Volume 93.2 fL (80.0-100.0); RDW Coefficient of Variation 17.1 % (11.5-14.5); RDW Standard Deviation 57.1 fL (36.4-46.3); Red Blood Count 2.94 M/uL (4.20-5.40); White Blood Count 6.27 K/ul (4.8-10.8)
[2024-08-29 07:54] LABS: Basophils # (auto) 0.01 K/uL (0.00-0.20); Basophils % (auto) 0.2 %; Eosinophils # (auto) 0.02 K/uL (0.00-0.50); Eosinophils % (auto) 0.3 %; Immature Granulocytes # (auto) 0.03 K/uL (0.01-0.20); Immature Granulocytes % (auto) 0.5 %; Lymphocytes # (auto) 1.28 K/uL (1.20-3.40); Lymphocytes % (auto) 20.4 %; Monocytes # (auto) 0.58 K/uL (0.11-0.59); Monocytes % (auto) 9.3 %; Neutrophils # (auto) 4.35 K/uL (1.40-6.50); Neutrophils % (auto) 69.3 %
[2024-08-29] MEDS: DAPTOmycin 400 MG in SYRINGE 0 ML IV SCH (08:17)
--- NOTE | 2024-08-29 09:31 | Hospitalist Progress Note ---
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 As per chart review in [facility], Residents trauma surgery notes :"Patient seems to have a fall and noted to have open left distal femur fracture on 07/14 that required serial debridements prior to operative fixation and eventual discharge on 07/29 and antibiotic therapy via PICC line. She was readmitted on 08/16 with generalized malaise and a tracking around the surgical bed on CT scanning. ID and orthopedic surgery were consulted and adjusted antibiotics and CRP has been followed. Ortho deferred operative management at this time as CRP has been stabilized with a plan to proceed with IV antibiotic therapy. She is currently on IV vancomycin and IV cefepime and p.o. voriconazole with end date of 09/19/2024. To follow-up with orthopedics and ID. [facility]. Nausea and vomiting Abdominal pain Acute Cholecystitis Patient presented to the hospital with abdominal pain, nausea and vomiting. Ultrasound gallbladder shows distended gallbladder and signs of early cholecystitis. Flagyl added to cefepime and vancomycin; Discussed with ID on 08/28; vancomycin changed to daptomycin as per ID Initially plan was to do HIDA scan; however, due to patient habitus/fracture; difficult to undergo HIDA scan. Discussed with surgery; they recommend per cutaneous cholecystostomy. Discussed with [facility] as patient was recently discharged from there on 08/24/2024; patient accepted for transfer. Awaiting bed JERI on CKD Possible ATN/interstitial nephritis Hypernatremia- Resolved Her creatinine was 2.3 on in [place]; creatinine 1.1 on 07/13/2024 Creatinine up trended to 3.14 CT abdomen pelvis does not show hydronephrosis Roman in place for strict input and output monitoring. lasix as per nephrology Left femur fracture infection infection Status post surgery at [place] was on IV Vanco and IV cefepime and p.o. voriconazole per ID recommendations with end date of 09/19/2024 ID recommended to change vancomycin to daptomycin. Type 2 Diabetes Stop metformin at discharge given patient declining GFR Will consider Jardiance at discharge Glargine and NovoLog while inpatient Constipation Stool softeners, continue Anemia Possible anemia of recent illness Hemoglobin was 9.2 on 01/2024 Hb around 8 to 9 Hemoglobin was 14 on 07/13/2024 Monitor for any bleeding Abnormal CT head CT head on admission showed possible soft tissue thickening noted on left parasellar and cavernous sinus region with maximum thickness of 11mm, could be artifact due to patient motion or extraaxial lesion or cavernous sinus lesion. MRI Brain rule out mass/acute findings. DVT prophylaxis On heparin subcu monitor hb DNR/DNI as per discussion with patient's son over the phone. Updated son over the phone on 08/28/2024. Agreeable to transfer. Time spent evaluating patient, direct bedside care, chart review, placing orders, interpretation of diagnostic studies, discussion with consultants, patient, and family members, as well as other required patient management activities is 50 minutes Please note the above document was generated using voice recognition software. It may contain grammatical, syntax or spelling errors. Any formal questions or concerns about the content, text or information contained within the body of this dictation should be directly addressed to the provider for clarification Admission and Anticipated Discharge Date Admission Date: August 27, 2024 Subjective Patient seen and examined at bedside. She continues to report pain all over her body . She is more alert today Vital signs are stable; patient saturating well on room air. No significant overnight events Review of Systems Review of Systems: All systems reviewed & are unremarkable except as noted in Subjective Physical Exam Physical Exam: Constitutional: Appears lethargic; able to answer simple questions. Respiratory: Bilateral vesicular breath sound. Cardiovascular: RRR, no murmur, no edema Vessels: no JVD or carotid bruit Chest: normal inspection of chest Abdomen: soft, tenderness improved on RUQ Musculoskeletal: Healed scar on left knee with splint on the leg. Neurologic: PERRL, EOMI, accommodation nl, no face palsy, weak overall; strength 4/5 in lower extremity Results & Data Results & Data Vital Signs (Past 12 Hours) Vital Signs Temp Pulse Pulse Pulse Resp BP Pulse Ox 08/29/24 09:09 08/29/24 09:07 08/29/24 07:22 36.7 C 78 18 126/72 96 08/29/24 07:06 75 08/29/24 04:48 155/68 H 08/29/24 03:42 37.0 C 80 20 178/81 H 93 08/29/24 01:18 78 08/29/24 01:00 36.8 C 75 20 158/73 H 96 Pulse Ox O2 Del Method O2 Del Method 08/29/24 09:09 Room Air 08/29/24 09:07 96 Room Air 08/29/24 07:22 Room Air 08/29/24 07:06 08/29/24 04:48 08/29/24 03:42 Room Air 08/29/24 01:18 08/29/24 01:00 Room Air
--- NOTE | 2024-08-29 10:04 | Nephrology Progress Note ---
Date of Service August 29, 2024 Assessment & Plan Admission and Anticipated Discharge Date Admission Date: August 27, 2024 Subjective Assessment & Plan (1) JERI (acute kidney injury): On [facility] chart review her serum creatinine was 0.9 on 08/09/2024, since then this has been in mid 2s, he did not have any contrast study recently(reviewed both in [facility] and [facility]) he is on 5 tablets(each 50 mg), twice daily of voriconazole, since 08/07/2024, with 2 g cefepime twice daily(since 07/29/2024), and vancomycin 1250 mg every other day(since 08/24/2024), She also had cefazolin and gentamicin when she was admitted in [facility] from 07/13 to 07/29 Serum creatinine on 08/25 ---2.36 which has risen to 3.14 but has not gone up much since then. still at 3.19. She is making urine but the amount seems to have dropped off a lot but does seem to be gaining weight. She has lot of edema and is not eating much CXR Says CHF. Given rising wt and low urine output would not give more IVF. Rather she needs Iv lasix. would consider giving her lasix 40 iv q8h JERI looks like toxic ATN ---- in the setting of infection/Abx use. ID advice reviewed in detail. (2) Cholelithiasis: As per GI/ primary team. Currently being managed NPO. pending HIDA scan Plan discussed with Dr Duron. Time spent 35 mins o---Appears confused and weak. eyes closed and did not answer questions. urine only 650 ml yesterday. was 1800 the day before Physical Exam Physical Exam: General- Confused. Lungs- clear to auscultation no wheezing or crackles seen. Heart- regular rate and rhythm; no murmur, no gallop. Abdomen- normal bowel sounds, soft, diffuse tenderness, no distension Extremities- 1+ edema, left lower extremity thornton in immobilizer, healing surgical scar seen on left knee. Neuro- alert, oriented x 1; PERRL, confused. obeys simple commands Results & Data Vital Signs (Past 12 Hours) Vital Signs Temp Pulse Pulse Pulse Resp BP Pulse Ox 08/29/24 09:09 08/29/24 09:07 08/29/24 07:22 36.7 C 78 18 126/72 96 08/29/24 07:06 75 08/29/24 04:48 155/68 H 08/29/24 03:42 37.0 C 80 20 178/81 H 93 08/29/24 01:18 78 08/29/24 01:00 36.8 C 75 20 158/73 H 96 Pulse Ox O2 Del Method O2 Del Method 08/29/24 09:09 Room Air 08/29/24 09:07 96 Room Air 08/29/24 07:22 Room Air 08/29/24 07:06 08/29/24 04:48 08/29/24 03:42 Room Air 08/29/24 01:18 08/29/24 01:00 Room Air
[2024-08-29] MEDS: FUROSEMIDE 40 MG/4 ML VIAL IV ONE (10:56)
[2024-08-29 16:14] VITALS: BP 134/69; PULSE 85; RESP 16; O2SAT 95
--- NOTE | 2024-08-29 17:09 | Discharge Summary ---
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 Patient is alert to name. Per nursing staff she was also knew that she is in the hospital. Currently patient says she is having pain all over and repeating the same thing. And when asked other questions she says do not know. Could not get any history from the patient currently. Called the son it went to voicemail which is full. Called the friend and as per friend patient generally talks and make sense and friend said he will notify her son. Called [facility]. Per [facility] patient came there on August 24. And there is no clear documentat ion of mental status but there is a history of dementia. Patient is currently bedbound. Since Wednesday morning she is having lot of nausea and vomiting and they give p.o. Zofran but was not improving and she also complained of right upper quadrant abdominal pain when they decided to send to the hospital. No fevers. Had a bowel movement yesterday. As per [facility], Residents trauma surgery notes :"Patient seems to have a fall and noted to have open left distal femur fracture on 07/14 that required serial debridements prior to operative fixation and eventual discharge on 07/29 and antibiotic therapy via PICC line. She was readmitted on 08/16 with generalized malaise and a tracking around the surgical bed on CT scanning. ID and orthopedic surgery were consulted and adjusted antibiotics and CRP has been followed.. Ortho deferred operative management at this time as CRP has been stabilized with a plan to proceed with IV antibiotic therapy. She is currently on IV vancomycin and IV cefepime and p.o. voriconazole with end date of 09/19/2024. To follow-up with orthopedics and ID. Patient was discharged to [facility] on August 24, 2024. Past medical's. As mentioned above Past surgical history. Drainage of left thigh lesion. Repair of left femur shaft fracture. Debridement of skin and subcu tissue. Social history. . Quit smoking 1998. No alcohol use. No drug use. Family history. No family history on file Admission Exam Per Admitting Provider General- Confused. Head- atraumatic Eyes- PERRL ENT- oropharynx clear Neck- supple, no JVD. Lungs- clear to auscultation no wheezing or crackles seen. Heart- regular rate and rhythm; no murmur, no gallop. Abdomen- normal bowel sounds, soft, diffuse tenderness, no distension Extremities- no pretibial edema, left lower extremity thornton in immobilizer, healing surgical scar seen on left knee. Neuro- alert, oriented x 1; PERRL, confused. obeys simple commands Principal Diagnosis Acute cholecystitis Discharge Exam Constitutional: Appears lethargic; able to answer simple questions. Respiratory: Bilateral vesicular breath sound. Cardiovascular: RRR, no murmur, no edema Vessels: no JVD or carotid bruit Chest: normal inspection of chest Abdomen: soft, tenderness improved on RUQ Musculoskeletal: Healed scar on left knee with splint on the leg. Neurologic: PERRL, EOMI, accommodation nl, no face palsy, weak overall; strength 4/5 in lower extremity Discharge Data Allergies Allergy/AdvReac Type Severity Reaction Status Date / Time ether Allergy Unknown Verified 07/13/24 20:58 Penicillins Allergy Unknown Verified 07/13/24 20:58 Consultations 08/27/24 02:08 ED Decision to Admit Stat 08/27/24 09:21 Consult General Surgery Routine Consult Nephrology Routine 08/27/24 13:25 Consult Infectious Diseases Routine Ordered Studies 08/26/24 23:42 CT abd pelvis wo con Stat 08/27/24 04:59 CT head/brain wo con Urgent 08/27/24 05:07 US gallbladder Urgent 08/27/24 08:01 MRI Brain [MR brain wo con] Urgent Hospital Course (1) Vomitin-year-old female with past medical history significant for type 2 diabetes, history of lactic acidosis, hyperlipidemia, hypertension, malnutrition of moderate degree, drug-induced constipation, vitamin D deficiency, osteomyelitis, infection of orthopedic implant, 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 As per chart review in [facility], Residents trauma surgery notes :"Patient seems to have a fall and noted to have open left distal femur fracture on 07/14 that required serial debridements prior to operative fixation and eventual discharge on 07/29 and antibiotic therapy via PICC line. She was readmitted on 08/16 with generalized malaise and a tracking around the surgical bed on CT scanning. ID and orthopedic surgery were consulted and adjusted antibiotics and CRP has been followed. Ortho deferred operative management at this time as CRP has been stabilized with a plan to proceed with IV antibiotic therapy. She is currently on IV vancomycin and IV cefepime and p.o. voriconazole with end date of 09/19/2024. To follow-up with orthopedics and ID. Patient was discharged to [facility] on August 24, 2024. Nausea and vomiting Abdominal pain Acute Cholecystitis Patient presented to the hospital with abdominal pain, nausea and vomiting. Ultrasound gallbladder shows distended gallbladder and signs of early joon cystitis. Flagyl added to cefepime and vancomycin; Discussed with ID on 08/28; vancomycin changed to daptomycin as per ID Initially plan was to do HIDA scan; however, due to patient habitus/fracture; d ifficult to undergo HIDA scan. Discussed with surgery; they recommend percutaneous cholecystostomy. Discussed with [facility] as patient was recently discharged from there on 08/24/2024; patient accepted for transfer. Awaiting bed JERI on CKD Possible ATN/interstitial nephritis Hypernatremia- Resolved Her creatinine was 2.3 on in [place]; creatinine 1.1 on 07/13/2024 Creatinine up trended to 3.14 CT abdomen pelvis does not show hydronephrosis Roman in place for strict input and output monitoring. lasix as per nephrology Left femur fracture infection infection Status post surgery at [place] was on IV Vanco and IV cefepime and p.o. voriconazole per ID recommendations with end date of 09/19/2024 ID recommended to change vancomycin to daptomycin. Type 2 Diabetes Stop metformin at discharge given patient declining GFR Will consider Jardiance at discharge Glargine and NovoLog while inpatient Constipation Stool softeners, continue Anemia Possible anemia of recent illness Hemoglobin was 9.2 on 01/2024 Hb around 8 to 9 Hemoglobin was 14 on 07/13/2024 Monitor for any bleeding Abnormal CT head CT head on admission showed possible soft tissue thickening noted on left parasellar and cavernous sinus region with maximum thickness of 11mm, could be artifact due to patient motion or extraaxial lesion or cavernous sinus lesion. MRI Brain rule out mass/acute findings. DVT prophylaxis On heparin subcu monitor hb DNR/DNI as per discussion with patient's son over the phone. Updated son over the phone on 08/28/2024. Agreeable to transfer. Please note the above document was generated using voice recognition software. It may contain grammatical, syntax or spelling errors. Any formal questions or concerns about the content, text or information contained within the body of this dictation should be directly addressed to the provider for clarification Total Time Total Time Spent Total Time Spent (In Minutes): 45 Total Time Includes: Examination of the Patient, Discharge Planning, Medication Reconciliation, Communication With Other Providers and Other Discharge Plan Discharge Items Patient Disposition: Transfer Acute [facility] Reason For Visit: N/V,AMS,METABOLIC ACIDOSIS Discharge Diagnosis: Nausea and vomiting Abdominal pain Acute Cholecystitis Activity: Resume your previous activity Non-emergency contact: Primary Care Provider Call non-emergency contact if: you have any medication questions and your symptoms worsen Follow-up/Referrals: Ken Cochran [Primary Care Provider] - Diet: Regular Addtl Attending Provider Instructions: Date of Service: August 28, 2024 Current Inpatient Medications Dextrose (Dextrose 50% 50 Ml Syringe) 25 - 50 ml IV UD PRN; Protocol PRN Reason: Hypoglycemia Protocol Stop: 09/26/24 09:20 Docusate Sodium (Docusate Sodium 100 Mg Cap) 100 mg PO BID LUDA Stop: 09/26/24 09:20 Last Admin: 08/28/24 09:05 Dose: Not Given Glucagon (Glucagon For Inj 1 Mg Vial) 1 mg SQ UD PRN; Protocol PRN Reason: Hypoglycemia Protocol Stop: 09/26/24 09:20 Glucose (Glucose 40% Gel 15 Gm Tube) 15 - 30 gm PO UD PRN; Protocol PRN Reason: Hypoglycemia Protocol Stop: 09/26/24 09:20 Glucose (Glucose 10 Tab/Tube) 4 - 8 tab PO UD PRN; Protocol PRN Reason: Hypoglycemia Protocol Stop: 09/26/24 09:20 Heparin Sodium (Beef Lung) (Heparin 10 Unit/Ml 5 Ml Flush) 5 ml FLUSH PRN PRN PRN Reason: Flush Stop: 09/26/24 12:29 Heparin Sodium (Porcine) (Heparin Sod 5,000 Unit/0.5 Ml Vial) 5,000 units SQ Q8H [facility] Stop: 09/26/24 09:59 Last Admin: 08/28/24 09:02 Dose: 5,000 units Hydromorphone HCl (Hydromorphone Inj 0.5 Mg/0.5 Ml Syr) 0.5 mg IV Q6H PRN PRN Reason: Severe Pain (Scale 7, 8, 9,10) Stop: 09/10/24 09:20 Last Admin: 08/28/24 12:58 Dose: 0.5 mg Metronidazole (Flagyl) 500 mg in 100 mls @ 100 mls/hr IV Q8H [facility]; Protocol Stop: 09/06/24 08:59 Last Admin: 08/28/24 14:42 Dose: 100 mls/hr Cefepime HCl (Maxipime 2000mg) 1,000 mg in 10 mls @ 5 mls/min IV Q12H [facility] Stop: 10/08/24 10:59 Last Admin: 08/28/24 10:39 Dose: 5 mls/min Thiamine HCl 200 mg/ Sodium (Chloride) 52 mls @ 210 mls/hr IV Q8H [facility] Stop: 09/26/24 15:59 Last Infusion: 08/28/24 08:03 Dose: Infused Dextrose (D5w) 1,000 mls @ 125 mls/hr IV .Q8H [facility] Stop: 08/28/24 17:14 Last Admin: 08/28/24 09:23 Dose: 125 mls/hr Daptomycin 400 mg/ Syringe 8 mls @ 4 mls/min IV Q48H [facility]; Protocol Stop: 10/10/24 08:59 Insulin Aspart (Insulin Aspart Per Unit Charge) 0 units SC ACHS [facility] Stop: 09/26/24 09:20 Last Admin: 08/28/24 12:55 Dose: 3 units Insulin Glargine (Lantus Per Unit Charge) 10 units SQ DAILY [facility] Stop: 09/26/24 10:44 Last Admin: 08/28/24 08:58 Dose: 10 units Lidocaine (Lidocaine 5% 1 Patch) 1 patch TD HS [facility] Stop: 09/27/24 20:59 Miscellaneous (Carbohydrates For Hypoglycemia ) 15 - 30 gm PO UD PRN PRN Reason: Hypoglycemia Protocol Stop: 09/26/24 09:20 Miscellaneous (Remove Lidoderm Patch) 1 each N/A QAM [facility] Stop: 09/27/24 11:59 Last Admin: 08/28/24 11:39 Dose: 1 each Nitroglycerin (Nitroglycerin Sl 0.4 Mg/Tab Tab) 0.4 mg SL Q5M PRN PRN Reason: Chest Pain Stop: 09/26/24 09:20 Nystatin (Nystatin Susp 500,000 U/5 Ml Udc) 5 ml PO ACHS [facility] Stop: 09/06/24 09:20 Last Admin: 08/28/24 11:39 Dose: 5 ml Ondansetron HCl (Ondansetron Inj 2 Mg/Ml 2 Ml Vial) 4 mg IV Q6H PRN PRN Reason: Nausea Stop: 09/26/24 09:20 Last Admin: 08/28/24 09:11 Dose: 4 mg Oxycodone HCl (Oxycodone Hcl Ir 5 Mg Tab (Immediate Release)) 5 mg PO Q4H PRN PRN Reason: Pain, Moderate Stop: 09/10/24 09:20 Last Admin: 08/28/24 11:38 Dose: 5 mg Polyethylene Glycol (Polyethylene (Miralax) 17 Gm Pack) 17 gm PO DAILY PRN PRN Reason: Constipation Stop: 09/26/24 09:20 Polyethylene Glycol (Polyethylene (Miralax) 17 Gm Pack) 17 gm PO DAILY [facility] Stop: 09/26/24 09:20 Last Admin: 08/28/24 07:39 Dose: Not Given Sennosides (Senna 8.6 Mg Tab) 8.6 mg PO HS [facility] Stop: 09/26/24 20:59 Last Admin: 08/27/24 22:05 Dose: Not Given Voriconazole (Voriconazole 200 Mg Tablet) 50 mg PO Q12 [facility] Stop: 10/09/24 08:59 Last Admin: 08/28/24 09:29 Dose: 50 mg Voriconazole (Voriconazole 200 Mg Tablet) 200 mg PO Q12 [facility] Stop: 10/09/24 08:59 Last Admin: 08/28/24 09:04 Dose: 200 mg Pending Studies at Discharge: No Stand-Alone Forms: [facility], Smoking Cessation Skilled Items Patient informed of condition?: No DNR: Yes Discharge Level of Care: Other Communicable Disease: No Discharge Prognosis: Stable Lines: PICC Urinary Catheter: No Medications and DC Order Prescriptions: Continued sennosides [senna] 8.6 mg Tablet 8.6 mg PO HS nystatin 100,000 unit/mL Suspension 5 ml PO ACHS Rx Instructions: swish and swallow acetaminophen 325 mg Tablet 650 mg PO QID PRN (Reason: Pain) polyethylene glycol 3350 [Miralax] 17 gram Powder In Packet 17 g PO DAILY oxycodone 5 mg Tablet 5 mg PO Q4H PRN (Reason: Pain, Moderate) heparin (porcine) 5,000 unit/0.5 mL Syringe 5,000 unit TID Rx Instructions: 5000units subcutaneous tid sodium chloride 0.9 % (flush) Syringe 5 ml IV UD Rx Instructions: 5ml iv in morning and 5ml before bedtime. Before and after med administration cefepime 2 gram Recon Soln 2 g IV Q12H Rx Instructions: to followup with ID Dr.Robert Dinero([facility]) metformin 850 mg Tablet 850 mg PO BID baclofen 10 mg Tablet 10 mg PO TID PRN (Reason: Spasms) insulin aspart U-100 100 unit/mL Solution 4 unit SUBCUT USEASDIRECTD Rx Instructions: 4 units in morning, 4 units noon and 4 units in evening docusate sodium [Colace] 100 mg Capsule 100 mg PO BID ergocalciferol (vitamin D2) 1,250 mcg (50,000 unit) Capsule 1,250 mcg PO WK voriconazole 50 mg Tablet 250 mg PO Q12H Rx Instructions: administer on empty stomach, at least 1 hour before or after meal(s) Liquacel 16-100 gram-kcal/30 mL Liquid 30 ml PO BID Discontinued vancomycin in 0.9 % sodium chl 750 mg/150 mL Solution 1,250 mg IV Q OTHER DAY Rx Instructions: iv vancomycin 1250mg q every other day Discharge Orders: Discharge Order (Routine); Ordered 08/29/24 Ordered By: Vicente Duron Admission Data Admit Date/Time: 08/27/24 04:58 Attending Provider: Vicente Duron Admit Provider: Hieu Ignacoi Primary Care Provider: Ken Cochran Other Providers: Hieu Ignacio; Oliver Miller; Deedee Jacobo; Michael Pham; Albert Hernandes; Marquez Bran I.; Chaka Munoz II; Terseita Keating; Piero Pérez; Timo Dinero; Citlali Capellan
[2024-08-29] MEDS ORDERED: VORICONAZOLE 50 MG TABLET PO SCH ×2 (21:00)
== END 2024-08-29 17:58 | disposition short-term general hospital (02) | DRG 444 ==
LOC: ED 22:47 → 2N 08-27 04:58 → INTOOBSV 08-27 04:58 → 2N 08-27 08:40

== ENCOUNTER 2024-09-15 14:07 | Observation (INO) ==
--- NOTE | 2024-09-15 14:24 | Emergency Department Note ---
Impression & Plan Thrombocytopenia, Infection associated with internal fixation device ED Provider Note Provider: Martin Lopez MD CHIEF COMPLAINT: Low platelet count HISTORY OF PRESENT ILLNESS: Patient is a 74-year-old female history of type 2 diabetes, hypertension, osteomyelitis, open distal left femur fraction status post surgery, ongoing confusion issues presenting from her nursing today due to abnormal outpatient blood work. Had basic blood work completed that showed evidence of low platelet count of 20,000. Patient denies any bleeding issues. Reports she has some mild ongoing nausea. Has a PICC line in the right upper arm for she is receiving antibiotics. Might occasionally have a headache but denies any headache or abdominal pain currently. Denies any new falls. Patient has been on subcu heparin at the facility stopped this morning. PAST MEDICAL HISTORY: As noted above MEDICATIONS: Reviewed medication list from facility SOCIAL HISTORY: Residing at [facility] PHYSICAL EXAM: GENERAL: alert and oriented in no acute distress on stretcher Head: normocephalic and atraumatic EYES: No injection, discharge or icterus. EOMI. NECK: Trachea midline. ENT: Mucous membranes pink and moist. LUNGS: Airway patent. No retractions. Breath sounds clear HEART: Regular rate and rhythm. No chest wall tenderness ABDOMEN: Soft and non-tender, without guarding or rebound. No abdominal pain SKIN: Acyanotic, warm, dry, without rashes EXTREMITIES: With trace 1+ lower extremity edema. There is some nearly healed scarring over the left lateral distal thigh and knee region without significant ecchymosis, erythema, or fluctuance appreciable. Small mount of flaking scab noted. Right upper extremity PICC line in place. NEUROLOGICAL: No focal deficits. No aphasia. No facial droop or slurred speech. Normal strength and tone in the extremities. Sensation to gross touch normal. CONTINUOUS CARDIAC MONITORING: was ordered and showed a heart rate of 70s bpm in normal sinus rhythm Patient's laboratory studies reviewed. Differential includes HIT, worsening infection, sepsis, electrolyte abnormality, renal dysfunction, bleeding, ICH, medication side effect among others were considered. IMPRESSION/MEDICAL DECISION MAKING: Reviewed discharge coming from the beginning of the month from here. Reason transfer to [facility] question of cholecystitis. Patient not have PERC tube placement. Has been on long-term ertapenem since discharge. Patient denies significant symptoms with some mild ongoing chronic nausea at times. States he has been hydrating with water. Denies any falls or bleeding. Patient does not appear in distress. Hemoglobin appears stable. Patient from laboratory studies show that on the eighth of this month her platelet has heart 15. On the it was 32, and today was 20. No bleeding issues and hemoglobin is stable. Very slight leukopenia just before today this has been fairly stable over the last 11 days. Recheck CBC and chemistries were sent here. Does appear in any distress. Not having severe headache or other new neurological symptoms. Doubt occult bleeding. Reviewed epic records from hospitalization and discharge from [facility] on the . Patient was evaluated by hematology during that time with a negative HIT workup including platelet factor 4 antibody negative testing due to clumping of her platelets. Appears her low count was approximately 50 during the admission begun to rise at discharge. Chemistries here reassuring with only slightly low magnesium 1.5. Renal function improving from previous. Hemoglobin stable and leukopenia slightly improved on recheck here. Clumping of platelets noted on the CBC here. Patient has been on voriconazole, linezolid, Bactrim, ertapenem along with others. Question if these may be contributing. Did reach out discussed with our hematology oncology team Dr. Martinez. Will get a blood smear as well as a citrated platelet count to see if this thrombocytopenia is real. Will bring into the hospital for further evaluation and discussion with hematology and question if her antibiotics need to be changed in consultation with ID. Hospitalist contacted and the patient agreeable. Citrate platelet levels depressed at 69 but not nearly as low which is somewhat reassuring. DIAGNOSIS: Thrombocytopenia, chronic leg infection DISPOSITION: Hospitalist will evaluate Patient was agreeable with this plan. Past Med/Surg History Problem List (Updated 09/15/24 @ 15:56 by Martin Lopez M.D.) Thrombocytopenia (Acute) Status post open reduction and internal fixation (ORIF) of fracture Infection associated with internal fixation device (Acute) Cholecystitis Cholelithiasis Abdominal pain Vomiting (Acute) Weakness (Acute) JERI (acute kidney injury) (Acute) Social History Smoking Status: Former smoker Tobacco Type: Cigarettes Preferred Language: Andorran Communication Ability: Impaired Securities Attorney Required: No Beliefs That Will Affect Care: None Current Living Situation: Sn[facility] Current Living Situation Comment: [place] Feels Safe at Home: Yes Assistive Devices: Walker Allergies Allergies Allergy/AdvReac Type Severity Reaction Status Date / Time cefepime Allergy Unknown Verified 09/15/24 16:14 ether Allergy Unknown Verified 07/13/24 20:58 Penicillins Allergy Unknown Verified 09/15/24 16:19 sorbitan esters Allergy Unknown Verified 09/15/24 16:14 Home Meds Home Medications Medication Instructions Recorded Confirmed acetaminophen 325 mg tablet 650 mg PO Q6 PRN Pain LEVEL 1-5 08/27/24 09/15/24 docusate sodium 100 mg capsule 100 mg PO BID 08/27/24 09/15/24 (Colace) ergocalciferol (vitamin D2) 1,250 1,250 mcg PO WK 08/27/24 09/15/24 mcg (50,000 unit) capsule insulin aspart U-100 100 unit/mL 4 unit subcut WM 08/27/24 09/15/24 subcutaneous solution metformin 850 mg tablet 850 mg PO BID 08/27/24 09/15/24 oxycodone 5 mg tablet 5 mg PO Q4H PRN PAIN 6-10 08/27/24 09/15/24 polyethylene glycol 3350 17 gram 17 g PO DAILY 08/27/24 09/15/24 oral powder packet (Miralax) sennosides 8.6 mg tablet (senna) 8.6 mg PO HS 08/27/24 09/15/24 voriconazole 50 mg tablet 250 mg PO QAM 08/27/24 09/15/24 Lactobacillus acidophilus 1 cap PO BID 09/15/24 09/15/24 acetaminophen 325 mg tablet 325 mg PO Q6 PRN TEMP > 101 09/15/24 09/15/24 ertapenem 1 gram solution for 0.5 g IV QAM 09/15/24 09/15/24 injection ferrous sulfate 325 mg (65 mg 325 mg PO DAILY 09/15/24 09/15/24 iron) tablet folic acid 1 mg tablet 1 mg PO DAILY 09/15/24 09/15/24 linezolid 600 mg tablet 600 mg PO BID 09/15/24 09/15/24 sulfamethoxazole 800 1 tab PO UD 09/15/24 09/15/24 mg-trimethoprim 160 mg tablet (Bactrim DS) Results & Data (ED) Vital Signs Vital Signs - 24 hr 09/15/24 14:17 09/15/24 14:26 09/15/24 16:00 Temperature 36.8 C Temperature Source Oral Pulse Rate 71 71 Pulse Rate [Finger] 69 Respiratory Rate 18 18 Blood Pressure 169/82 H Blood Pressure [Right Arm] 134/83 Blood Pressure Mean 111 Blood Pressure Mean [Right Arm] 100 Pulse Oximetry 96 96 Oxygen Delivery Method Room Air Room Air Sepsis Recent Fever Within 48 Hours No Sepsis New/Unexplained Change in Mental Status No Sepsis Action Taken by Nursing No Action Required Laboratory Data 09/15/24 14:27 09/15/24 14:27 Lab Results 09/15/24 09/15/24 09/15/24 Range/Units 14:27 15:27 17:19 WBC 5.55 (4.8-10.8) K/ul RBC 3.02 L (4.20-5.40) M/uL Hgb 8.6 L (12.0-16.0) g/dl Hct 27.8 L (37.0-47.0) % MCV 92.1 (80.0-100.0) fL MCH 28.5 (25.0-34.0) pg MCHC 30.9 L (32.0-36.0) g/dL RDW Std Deviation 55.2 H (36.4-46.3) fL RDW Coeff of Caleb 16.3 H (11.5-14.5) % Plt Count (130-400) K/uL MPV (9.4-12.4) fL Immature Gran % (Auto) 0.5 % Neut % (Auto) 50.5 % Lymph % (Auto) 37.8 % Knox % (Auto) 7.6 % Eos % (Auto) 3.1 % Baso % (Auto) 0.5 % Neut # (Auto) 2.80 (1.40-6.50) K/uL Lymph # (Auto) 2.10 (1.20-3.40) K/uL Knox # (Auto) 0.42 (0.11-0.59) K/uL Eos # (Auto) 0.17 (0.00-0.50) K/uL Baso # (Auto) 0.03 (0.00-0.20) K/uL Immature Gran # (Auto) 0.03 (0.01-0.20) K/uL Plt Count ,Citrate 69 L (130-400) K/uL Peripher Smr Path Cons Cancelled PT 12.0 (9.0-12.0) Seconds INR 1.1 (0.9-1.1) APTT 22 (21-31) Seconds PTT Ratio 0.8 Sodium 138 (136-145) mmol/L Potassium 4.4 (3.5-5.1) mmol/L Chloride 104 (98-107) mmol/L Carbon Dioxide 26 (21-32) mmol/L Anion Gap 8 (3-11) BUN 18 (6-23) mg/dl Creatinine 1.97 H (0.6-1.2) mg/dl Est Cr Clr Drug Dosing 25.4 ml/min eGFR 26.37 BUN/Creatinine Ratio 9.1 L (10-20) Glucose 101 H (70-99(Fasting)) mg/dl Calcium 8.5 L (8.6-10.3) mg/dl Magnesium 1.5 L (1.7-2.4) mg/dl Total Bilirubin 0.5 (0.2-1.0) mg/dl AST 30 (13-39) U/L ALT 15 (7-52) U/L Alkaline Phosphatase 104 (34-104) U/L Total Protein 6.4 (6.0-8.3) gm/dl Albumin 2.9 L (3.4-5.0) gm/dl Globulin 3.5 (2.5-4.0) gm/dl Albumin/Globulin Ratio 0.8 L (0.9-2) Blood Type A Positive Antibody Screen NEGATIVE Discharge Plan Visit Data Chief Complaint: Recheck/Abnormal Lab/Rx Stated Complaint: ABNORMAL LAB ED Provider: Martin Lopez Discharge Problem: Thrombocytopenia, Infection associated with internal fixation device Patient Disposition: Admitted As Inpatient Discharge Instructions Interventions: ED Discharge Assessment Last Done: 09/15/24 18:09
[2024-09-15 15:10] LABS: Albumin Globulin Ratio 0.8 (0.9-2); Albumin Level 2.9 gm/dl (3.4-5.0); BUN Creatinine Ratio 9.1 (10-20); Bilirubin,Total 0.5 mg/dl (0.2-1.0); Calcium 8.5 mg/dl (8.6-10.3); Creatinine Clr Calc Pharmacy 25.4 ml/min; Globulin 3.5 gm/dl (2.5-4.0); Magnesium 1.5 mg/dl (1.7-2.4); Potassium 4.4 mmol/L (3.5-5.1); Total Protein 6.4 gm/dl (6.0-8.3)
[2024-09-15 15:15] LABS: Basophils # (auto) 0.03 K/uL (0.00-0.20); Basophils % (auto) 0.5 %; Eosinophils # (auto) 0.17 K/uL (0.00-0.50); Eosinophils % (auto) 3.1 %; Hematocrit (blood only) 27.8 % (37.0-47.0); Hemoglobin 8.6 g/dl (12.0-16.0); Immature Granulocytes # (auto) 0.03 K/uL (0.01-0.20); Immature Granulocytes % (auto) 0.5 %; Lymphocytes % (auto) 37.8 %; Mean Corpuscular Hemoglobin 28.5 pg (25.0-34.0); Mean Corpuscular Hgb Conc 30.9 g/dL (32.0-36.0); Mean Corpuscular Volume 92.1 fL (80.0-100.0); Monocytes # (auto) 0.42 K/uL (0.11-0.59); Monocytes % (auto) 7.6 %; Neutrophils % (auto) 50.5 %; RDW Coefficient of Variation 16.3 % (11.5-14.5); RDW Standard Deviation 55.2 fL (36.4-46.3); Red Blood Count 3.02 M/uL (4.20-5.40); White Blood Count 5.55 K/ul (4.8-10.8)
[2024-09-15 15:20] LABS: INR 1.1 (0.9-1.1); Partial Thromboplastin Ratio 0.8; Partial Thromboplastin Time 22 Seconds (21-31)
--- NOTE | 2024-09-15 16:09 | History & Physical Report ---
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 ertapenem 500 mg IV daily (end date September 19) 2. voriconazole 250 mg PO daily (end date January 17) 3. linezolid 600 mg PO Q12H (end date September 19) Plans to start Bactrim DC twice daily after Sep 19, 2024 for suppression at least for 6 months to 1 year and findal duration to be decided on follow up with ID after 6 weeks. Needs CMP every other week after 09/19 while being on Bactrim DS Consult ID Thrombocytopenia -Discussed with hematology, Dr. Martinez, regarding thrombocytopenia- ordered a blue top tube which does not allow plt to clump. Will need this daily to monitor -Suspect that this is due to linezolid. WILL HOLD This is scheduled to dc on 09/19 --- possibly could switch back to daptomycin IV (initially didn't use this due to cost) in the interim or transition to bactrim po as anticipated on 09/20/24? Will ask ID to determine best course DVT ppx: teds, scds of the right leg only Lines: PIV x 1 FEN/GI: HH/DM diet CODE: Full code Dispo: From home, likely to remain in the hospital x 1-2 days A total of 76 minutes were spent with greater than 50% of that time face to face with the patient, personally reviewing all current laboratories, imaging studies, past medication reconciliation, outpatient chart review, and discussion with specialists to collaborate care for the patient with attending. Please see attending documentation for corrections and/or additions. 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 ER has attempted to repeat this blood however platelet clumping occurred. She has had multiple hospitalizations secondary to initially with a open fracture of distal end of femur with nonunion, then infection of the orthopedic implant, osteomyelitis admitted at [facility] 08/16-08/24. She has had multiple IV antibiotic courses started and then switched for various reasons. Most recently she was admitted to this facility at [facility] on 08/26 for abdominal nausea, vomiting and abdominal pain where she had an ultrasound of the abdomen which showed distended gallbladder and early signs of cholecystitis. It was noted at that time that she had an elevated creatinine of 2.3 up from normal baseline which further celi to 3.14 thought due to possible ATN/interstitial nephritis. She was diuresed with IV Lasix per nephrology. Pt ultimately did ot have any abdominal intervention as MRCP was negative per general surgery. It was noted at that time that patient had a low platelet count. Hematology was consulted and workup for HIT was initiated. As the platelet factor 4 antibody was negative, HIT was unlikely. Her low platelet counts were due to clumping as seen on microscopic evaluation of peripheral blood smear. She was discharged on 09/[address] [facility]. Antibiotics were changed and she was taken off vancomycin due to JERI to daptomycin per ID, then off daptomycin due to cost with transition to linezolid instead. She remains on linezolid and voriconazole PO. At this time hematology is suspicious that thrombocytopenia is due to linezolid, prompting need for ID to weigh in regarding the antibiotic course. Peripheral smear and repeat blue top tube to avoid clumping has been ordered, and will need monitored to show improvement. Allergies Allergy/AdvReac Type Severity Reaction Status Date / Time cefepime Allergy Unknown Verified 09/15/24 16:14 ether Allergy Unknown Verified 07/13/24 20:58 Penicillins Allergy Unknown Verified 09/15/24 16:19 sorbitan esters Allergy Unknown Verified 09/15/24 16:14 Home Medications Medication Instructions Recorded Confirmed Type acetaminophen 325 mg tablet 650 mg PO Q6 PRN Pain LEVEL 1-5 08/27/24 09/15/24 History docusate sodium 100 mg capsule 100 mg PO BID 08/27/24 09/15/24 History (Colace) ergocalciferol (vitamin D2) 1,250 1,250 mcg PO WK 08/27/24 09/15/24 History mcg (50,000 unit) capsule insulin aspart U-100 100 unit/mL 4 unit subcut WM 08/27/24 09/15/24 History subcutaneous solution metformin 850 mg tablet 850 mg PO BID 08/27/24 09/15/24 History oxycodone 5 mg tablet 5 mg PO Q4H PRN PAIN 6-10 08/27/24 09/15/24 History polyethylene glycol 3350 17 gram 17 g PO DAILY 08/27/24 09/15/24 History oral powder packet (Miralax) sennosides 8.6 mg tablet (senna) 8.6 mg PO HS 08/27/24 09/15/24 History voriconazole 50 mg tablet 250 mg PO QAM 08/27/24 09/15/24 History Lactobacillus acidophilus 1 cap PO BID 09/15/24 09/15/24 History acetaminophen 325 mg tablet 325 mg PO Q6 PRN TEMP > 101 09/15/24 09/15/24 H istory ertapenem 1 gram solution for 0.5 g IV QAM 09/15/24 09/15/24 History injection ferrous sulfate 325 mg (65 mg 325 mg PO DAILY 09/15/24 09/15/24 History iron) tablet folic acid 1 mg tablet 1 mg PO DAILY 09/15/24 09/15/24 History linezolid 600 mg tablet 600 mg PO BID 09/15/24 09/15/24 History sulfamethoxazole 800 1 tab PO UD 09/15/24 09/15/24 History mg-trimethoprim 160 mg tablet (Bactrim DS) Past Med/Surg History Problem List (Updated 09/15/24 @ 15:56 by Martin Lopez M.D.) Thrombocytopenia (Acute) Status post open reduction and internal fixation (ORIF) of fracture Infection associated with internal fixation device (Acute) Cholecystitis Cholelithiasis Abdominal pain Vomiting (Acute) Weakness (Acute) JERI (acute kidney injury) (Acute) Social History Smoking Status: Former smoker Tobacco Type: Cigarettes Preferred Language: Grenadian Communication Ability: Impaired Rn Building Required: No Beliefs That Will Affect Care: None Current Living Situation: Prison Current Living Situation Comment: [place] Feels Safe at Home: Yes Assistive Devices: Walker Review of Systems Review of Systems: Constitutional: No fever, sweats or chills Eyes: No diplopia, no worsening or blurred vision ENT: normal hearing, no trouble swallowing Respiratory: No cough, sputum, dyspnea at rest or on exertion Cardiovascular: No chest pain, tightness or palpitations Abdomen: No pain, nausea, vomiting, diarrhea or constipation Musculoskeletal: R knee joint pain, no calf pain, swelling Neurologic: No weakness, numbness/tingling, or balance problems Psychiatric: No anxiety or depression Skin: No rash or itch Physical Exam Physical Exam: General: awake, alert, no apparent distress, elderly white female, anxious at times, repeats herself saying "im hungry" several times throughout exam Head: Normocephalic, atraumatic ENT: PERRL, EOMI, no pharyngeal exudate, mucous membranes moist Chest: Clear to auscultation, on room air, no adventitious breath sounds Cardiac: Regular rate and rhythm, no murmur, no JVD, normal peripheral pulses, g ood capillary refill Abdominal: NABS x 4 quadrants, soft, nondistended, nontender to palpation, no rebound or guarding Extremities: RLE with healing lateral knee wound, left foot in boot, otherwise normal inspection, no peripheral edema or erythema, calfs nontender to palpation Psych: Normal mood and affect Neuro: AAO x 3, strength intact bilaterally and rated 5/5, no motor deficits, speech is clear, no peripheral sensory deficits Results & Data Results & Data Vital Signs (Past 12 Hours) Vital Signs Temp Pulse Pulse Resp BP BP Pulse Ox 09/15/24 16:00 69 18 134/83 96 09/15/24 14:26 36.8 C 71 18 169/82 H 96 09/15/24 14:17 71 O2 Del Method 09/15/24 16:00 Room Air 09/15/24 14:26 Room Air 09/15/24 14:17 Laboratory Results 09/15/24 09/15/24 15:27 14:27 WBC 5.55 RBC 3.02 L Hgb 8.6 L Hct 27.8 L MCV 92.1 MCH 28.5 MCHC 30.9 L RDW Std Deviation 55.2 H RDW Coeff of Caleb 16.3 H Plt Count MPV Immature Gran % (Auto) 0.5 Neut % (Auto) 50.5 Lymph % (Auto) 37.8 Jack % (Auto) 7.6 Eos % (Auto) 3.1 Baso % (Auto) 0.5 Neut # (Auto) 2.80 Lymph # (Auto) 2.10 Jack # (Auto) 0.42 Eos # (Auto) 0.17 Baso # (Auto) 0.03 Immature Gran # (Auto) 0.03 Peripher Smr Path Cons Cancelled PT 12.0 INR 1.1 APTT 22 PTT Ratio 0.8 Sodium 138 Potassium 4.4 Chloride 104 Carbon Dioxide 26 Anion Gap 8 BUN 18 Creatinine 1.97 H Est Cr Clr Drug Dosing 25.4 eGFR 26.37 BUN/Creatinine Ratio 9.1 L Glucose 101 H Calcium 8.5 L Magnesium 1.5 L Total Bilirubin 0.5 AST 30 ALT 15 Alkaline Phosphatase 104 Total Protein 6.4 Albumin 2.9 L Globulin 3.5 Albumin/Globulin Ratio 0.8 L Blood Type A Positive Antibody Screen NEGATIVE Code Status & VTE Plan Code Status Full code Supervising Physician Co-Signing Physician Notes Attending Addendum: Case reviewed with the advanced practitioner. I have personally performed a history and physical examination on the patient. I have reviewed the advanced practitioner's documentation on the date of service referenced in note, and I agree with, and take responsibility for the plan of care. please refer to her notes for full details patient seen and examined, records reviewed by myself as well ASSESSMENT AND PLAN Thrombocytopenia, likely secondary to linezolid Evaluated for HIT during recent stay at [facility], negative Discussed with Dr. Martinez, consulted Stop linezolid Monitor platelet counts, blue top tube must be used for CBC as patient has blood clumping Osteomyelitis Scheduled to finish linezolid on September 19, 2024, discontinue linezolid due to thrombocytopenia Switch to daptomycin IV ,which was recommended by ID at [facility] prior to transitioning to linezolid Upon discharge due to High cost of daptomycin IV ID consult other diagnoses and plan of care as per advanced practitioner's notes Gerald Rosales MD
[2024-09-15] MEDS ORDERED: GLUCOSE 40% GEL 15 GM TUBE PO PRN (18:39)
[2024-09-15] MEDS ORDERED: GLUCAGON FOR INJ 1 MG VIAL SQ PRN (18:39)
[2024-09-15] MEDS ORDERED: ACETAMINOPHEN 325 MG TAB PO PRN (18:39)
[2024-09-15] MEDS ORDERED: CARBOHYDRATES FOR HYPOGLYCEMIA PO PRN (18:39)
[2024-09-15] MEDS ORDERED: DEXTROSE 50% 50 ML SYRINGE IV PRN (18:39)
[2024-09-15] MEDS ORDERED: GLUCOSE 10 TAB/TUBE PO PRN (18:39)
[2024-09-15] MEDS ORDERED: ERGOCALCIFEROL 1250 MCG (50,000 UNITS) CAP PO SCH (19:00)
[2024-09-15] MEDS: INSULIN ASPART PER UNIT CHARGE SC SCH (20:18)
[2024-09-15] MEDS: SENNA 8.6 MG TAB PO SCH (20:26)
[2024-09-15] MEDS: oxyCODONE HCL IR 5 MG TAB (IMMEDIATE RELEASE) PO PRN (20:26)
[2024-09-15] MEDS: DOCUSATE SODIUM 100 MG CAP PO SCH (20:26)
[2024-09-15] MEDS: metFORMIN HCL 850 MG TAB PO SCH (20:26)
[2024-09-15] MEDS: DAPTOmycin 375 MG in SYRINGE 0 ML IV SCH (21:55)
--- NOTE | 2024-09-16 06:52 | Oncology Consultation ---
Date of Consultation September 16, 2024 Assessment & Plan (1) Thrombocytopenia: (2) Anemia: Plan 1. Moderate thrombocytopenia:PF4 antibody negative. Likely multifactorial due to platelet clumping and IV antibiotics. Recommend platelet count be checked daily using sodium citrate/blue top tube. Agree with ID consult as I suspect that most likely culprit is linezolid especially in the setting of renal dysfunction. If there is no substitute for linezolid, may consider dose reduction in the setting of renal impairment. Recommend also checking B12 and folate levels to rule out nutritional component to thrombocytopenia. 2. Anemia: Also likely multifactorial due to bone marrow suppression by antibiotics, infection, CKD. Recommend nutritional labs including B12, folate and iron studies. Thank you for this consult. Please feel free to call if you have any other questions. History of Present Illness Reason for Consultation: Thrombocytopenia Attending Physician: Gerald Rosales MD History of Present Illness 74-year-old female with multiple comorbidities who was sent to the ER due to abnormal labs with platelet count of 20,000. Per review of her records, she has been receiving treatment for osteomyelitis/hardware infection with ertapenem, voriconazole and linezolid. IV antibiotics appears to have been started while she was hospitalized at [facility] from 08/16/2024 to 08/24/2024. During that admission, she was found to be thrombocytopenic for which she underwent workup for HIT with negative PF4 antibody and smear review revealed platelet clumping. Repeat labs obtained in the ER with sodium citrate tube revealed platelet count of 69,000.She also has anemia with hemoglobin of 8.7, hematocrit 28.1 and MCV of 92.4. Allergies Allergy/AdvReac Type Severity Reaction Status Date / Time cefepime Allergy Unknown Verified 09/15/24 16:14 ether Allergy Unknown Verified 07/13/24 20:58 Penicillins Allergy Unknown Verified 09/15/24 16:19 sorbitan esters Allergy Unknown Verified 09/15/24 16:14 Home Medications Medication Instructions Recorded Confirmed Type acetaminophen 325 mg tablet 650 mg PO Q6 PRN Pain LEVEL 1-5 08/27/24 09/15/24 History docusate sodium 100 mg capsule 100 mg PO BID 08/27/24 09/15/24 History (Colace) ergocalciferol (vitamin D2) 1,250 1,250 mcg PO WK 08/27/24 09/15/24 History mcg (50,000 unit) capsule insulin aspart U-100 100 unit/mL 4 unit subcut WM 08/27/24 09/15/24 History subcutaneous solution metformin 850 mg tablet 850 mg PO BID 08/27/24 09/15/24 History oxycodone 5 mg tablet 5 mg PO Q4H PRN PAIN 6-10 08/27/24 09/15/24 History polyethylene glycol 3350 17 gram 17 g PO DAILY 08/27/24 09/15/24 History oral powder packet (Miralax) sennosides 8.6 mg tablet (senna) 8.6 mg PO HS 08/27/24 09/15/24 History voriconazole 50 mg tablet 250 mg PO QAM 08/27/24 09/15/24 History Lactobacillus acidophilus 1 cap PO BID 09/15/24 09/15/24 History acetaminophen 325 mg tablet 325 mg PO Q6 PRN TEMP > 101 09/15/24 09/15/24 History ertapenem 1 gram solution for 0.5 g IV QAM 09/15/24 09/15/24 History injection ferrous sulfate 325 mg (65 mg 325 mg PO DAILY 09/15/24 09/15/24 History iron) tablet folic acid 1 mg tablet 1 mg PO DAILY 09/15/24 09/15/24 History linezolid 600 mg tablet 600 mg PO BID 09/15/24 09/15/24 History sulfamethoxazole 800 1 tab PO UD 09/15/24 09/15/24 History mg-trimethoprim 160 mg tablet (Bactrim DS) Patient History Social History Smoking Status: Unknown if ever smoked Tobacco Type: Cigarettes Hx Alcohol Use: No Hx Substance Use: No Preferred Language: Iraqi 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
[2024-09-16 07:27] LABS: Estimated Average Glucose 108 mg/dl; Hemoglobin A1C 5.4 % (4.5-5.6)
[2024-09-16 07:38] LABS: BUN Creatinine Ratio 9.6 (10-20); Calcium 8.3 mg/dl (8.6-10.3); Creatinine Clr Calc Pharmacy 26.8 ml/min; Potassium 4.4 mmol/L (3.5-5.1)
[2024-09-16 07:49] LABS: Hematocrit (blood only) 28.1 % (37.0-47.0); Hemoglobin 8.7 g/dl (12.0-16.0); Mean Corpuscular Hemoglobin 28.6 pg (25.0-34.0); Mean Corpuscular Volume 92.4 fL (80.0-100.0); RDW Coefficient of Variation 16.3 % (11.5-14.5); RDW Standard Deviation 55.3 fL (36.4-46.3); Red Blood Count 3.04 M/uL (4.20-5.40); White Blood Count 4.29 K/ul (4.8-10.8)
[2024-09-16 08:25] LABS: Ferritin 1251.3 ng/ml (8-388)
[2024-09-16] MEDS: POLYETHYLENE (MIRALAX) 17 GM PACK PO SCH (08:58)
[2024-09-16] MEDS: VORICONAZOLE 50 MG TABLET PO SCH (08:59)
[2024-09-16 09:00] LABS: Folate (Folic Acid),Ser orPlas 9.42 ng/ml (>5.38)
[2024-09-16] MEDS: FERROUS SULFATE 325 MG TAB PO SCH (09:00)
[2024-09-16] MEDS ORDERED: ERTAPENEM 1 GM IV SCH (09:00)
[2024-09-16] MEDS: VORICONAZOLE 200 MG TABLET PO SCH (09:00)
[2024-09-16] MEDS: FOLIC ACID 1 MG TAB PO SCH (09:01)
[2024-09-16] MEDS: ADVANCED PROBIOTIC 625 MG CAPSULE PO SCH (09:01)
[2024-09-16] MEDS: ERTAPENEM 500MG 500 MG/5 ML SYR IV SCH (09:39)
[2024-09-16] MEDS ORDERED: PHARMACY GLYCEMIC MGMT CONSULT PRN (09:58)
--- NOTE | 2024-09-16 10:23 | Pharmacy Report ---
Pharmacy Glycemic Short Note 2 - Date of Service September 16, 2024 - Glycemic Short BSG Results (Last 24 hours): 09/15/24 09/15/24 09/16/24 14:27 20:10 06:06 Glucose 101 H 103 H POC Glucose 158 H 09/16/24 07:52 Glucose POC Glucose 110 H OUTPATIENT ANTIDIABETIC REGIMEN: * Metformin 850mg PO BID * Insulin Aspart 4 units with meals (hold for BSG<100) * A1c 5.4% 09/16/24 ASSESSMENT: * 74 yo F admitted from [facility] for thrombocytopenia, heme consult. 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 ertapenem 500 mg IV daily (end date September 19) 2. voriconazole 250 mg PO daily (end date January 17) 3. linezolid 600 mg PO Q12H (end date September 19) - change to Daptomycin, as linezolid could be cause of thrombocytopenia. * Plans to start Bactrim DC twice daily after Sep 19, 2024 for suppression at least for 6 months to 1 year and final duration to be decided on follow up with ID after 6 weeks. CMP every other week after 09/19 while being on Bactr im DS. Consult ID. * Type 2 DM, euglycemic, did received metformin x 2 doses inpatient yesterday, placed on hold today by hospitalist. Pharmacy consulted. * Continue current NovoLog orders only, adjust goal range, add basal tomorrow if fasting is elevated, fasting 110mg/dl this morning. PLAN FOR INPATIENT GLYCEMIC CONTROL: * Hold outpatient oral diabetes medications * Basal insulin * none at this time * Bolus insulin * NovoLog per scale ACHS or Q6hrs while NPO * Goal Range: Low 110 mg/dL - High 140 mg/dL * Correction Factor: 25 mg/dL/unit * Nutritional / Prandial insulin per carb ratio of 1 unit per 10 grams CHO consumed
[2024-09-16] MEDS: MAGNESIUM SULFATE / D5W 1 GM/100 ML BAG IV ONE (11:07)
--- NOTE | 2024-09-16 12:18 | CT Scan Report ---
CT head/brain wo con CLINICAL HISTORY: confused intermittently Technique: Contiguous axial CT images of the head were acquired from the base of the skull to the mini joanna without intravenous contrast administration. Images were viewed in brain, subdural and bone channing home. Automated dose lowering techniques and/or adjustment according to patient size were utilized for this exam. Comparison: None available at the time of this dictation. Findings: The ventricles, basal cisterns, and cerebral sulci are normal. There is no acute intracranial hemorrh age or evidence of acute territorial infarction. Neither mass effect, shift of the midline structures , nor abnormal extra-axial fluid collections are shown. Imaged portions of the paranasal sinuses and mastoid air cells are clear. The orbits appear normal. There are no acute fractures of the calvaria or scalp swelling. Impression: No acute intracranial hemorrhage, no evidence of acute territorial infarction or other acute intracra nial disease process. ACT 112: Negative or not required by law. Electronically signed by: Ilya Lynch M.D. 09/16/2024 12:16 PM
--- NOTE | 2024-09-16 15:00 | Hospitalist Progress Note ---
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 ertapenem 500 mg IV daily (end date September 19) 2. voriconazole 250 mg PO daily (end date January 17) 3. linezolid 600 mg PO Q12H (end date September 19) Plans to start Bactrim DC twice daily after Sep 19, 2024 for suppression at least for 6 months to 1 year and final duration to be decided on follow up with ID after 6 weeks. Needs CMP every other week after 09/19 while being on Bactrim DS Consulted ID--input pending Linezolid changed to IV daptomycin for now Continue IV ertapenem, voriconazole Continue local wound care Thrombocytopenia Likely due to Linezolid/platelet clumping Evaluated for HIT during recent stay at [facility], negative PF4 antibody negative Peripheral smear--pending Monitor platelet counts, blue top tube must be used for CBC as patient has blood clumping Linezolid discontinue (was scheduled to finish on September 19, 2024) Appreciate hematology input: B12, folate levels normal, serum iron normal, ferritin elevated likely reactive Continue to monitor platelet Monitor platelet count Abdominal pain Unclear etiology CT abdomen pelvis currently pending Pancytopenia Monitor CBC closely DM II Hold p.o. metformin Continue insulin while hospitalized Monitor blood glucose levels DVT Px: Teds, scds Re: Thrombocytopenia CODE STATUS: Full code Admission and Anticipated Discharge Date Admission Date: September 15, 2024 Subjective Patient is seen and examined at bedside States feeling tired today Poor historian Reports abdominal pain below the umbilical region Unsure if she had a bowel movement Denies any chest pain, dyspnea, nausea, vomiting Review of Systems Review of Systems: All systems reviewed & are unremarkable except as noted in Subjective Physical Exam Physical Exam: Physical Exam: Vitals signs as noted above General Appearance:Obese, no apparent distress Head: normocephalic, Atraumatic Eyes: normal inspection, EOMI Neck: supple, Trachea midline Respiratory/Chest: Normal breath sounds, CTA, No accessory muscle use Cardiovascular: S1, S2, No murmur Abdomen/GI:Soft, mild tender, Bowel sounds present, no guarding or rigidity Extremities/Musculoskeletal:normal inspection, no edema, Left Knee healing wound Neurologic/Psych:Alert, awake, grossly no focal neurological deficits Skin: normal color, warm Results & Data Results & Data Vital Signs (Past 12 Hours) Vital Signs Temp Pulse Resp BP Pulse Ox O2 Del Method 09/16/24 07:51 36.6 C 70 18 159/81 H 97 Room Air Laboratory Results Short CBC 09/15/24 09/16/24 Range/Units 14:27 06:06 WBC 5.55 4.29 L (4.8-10.8) K/ul Hgb 8.6 L 8.7 L (12.0-16.0) g/dl Hct 27.8 L 28.1 L (37.0-47.0) % Plt Count (130-400) K/uL BMP 09/15/24 09/16/24 14:27 06:06 Sodium 138 139 Potassium 4.4 4.4 Chloride 104 105 Carbon Dioxide 26 26 BUN 18 18 Creatinine 1.97 H 1.88 H Glucose 101 H 103 H Calcium 8.5 L 8.3 L Liver Function 09/15/24 Range/Units 14:27 Total Bilirubin 0.5 (0.2-1.0) mg/dl AST 30 (13-39) U/L ALT 15 (7-52) U/L Alkaline Phosphatase 104 (34-104) U/L Albumin 2.9 L (3.4-5.0) gm/dl
--- NOTE | 2024-09-16 15:07 | CT Scan Report ---
CT abd pelvis wo con CLINICAL HISTORY: abd pain TECHNIQUE: Helical axial images of the abdomen and pelvis were obtained. Automated dose lowering tech niques and/or adjustment according to patient size were utilized for this exam. This exam was perfor med without intravenous contrast. CT DOSE: 2260.29 mGy.cm COMPARISON: Comparison is made to CT abdomen pelvis 08/27/2024 FINDINGS: Lower chest: Small bilateral pleural effusions are seen with underlying atelectasis. Liver: Unremarkable. No focal lesions are seen. Gallbladder and biliary tree: No calcified gallstones. Normal caliber wall. No intra- or extrahepatic biliary ductal dilation. Pancreas: Unremarkable, no focal lesions. Spleen: Unremarkable. Adrenals: Unremarkable. Kidneys and ureters: Unremarkable. Bladder: Diffuse homogeneous wall thickening is seen. Reproductive organs: Patient is status post hysterectomy. Bowel: Diverticulosis is seen without diverticulitis. The appendix is normal. There is a small hiatal hernia. Lymph nodes Retroperitoneal: Unremarkable. Pelvic: Unremarkable. Mesenteric: Unremarkable. Peritoneum: Normal. Vessels: Unremarkable. Abdominal wall: Left body wall stranding is seen. Bones: Degenerative changes in the visualized spine. Partial visualization of left femoral hardware. IMPRESSION: 1. No acute abnormalities are seen to explain abdominal pain. 2. Left body wall edema is nonspecific and may represent volume overload versus contusion. Correlati on with physical exam is recommended. ACT 112: Negative or not required by law. Electronically signed by: Ilya Lynch M.D. 09/16/2024 3:05 PM
[2024-09-16] MEDS: ONDANSETRON INJ 2 MG/ML 2 ML VIAL IV PRN (23:39)
[2024-09-17 07:01] LABS: Hematocrit (blood only) 27.2 % (37.0-47.0); Hemoglobin 8.5 g/dl (12.0-16.0); Mean Corpuscular Hemoglobin 28.3 pg (25.0-34.0); Mean Corpuscular Hgb Conc 31.3 g/dL (32.0-36.0); Mean Corpuscular Volume 90.7 fL (80.0-100.0); Mean Platelet Volume 10.5 fL (9.4-12.4); Platelet Count 47 K/uL (130-400); White Blood Count 4.64 K/ul (4.8-10.8)
[2024-09-17 07:24] LABS: BUN Creatinine Ratio 9.1 (10-20); Calcium 8.2 mg/dl (8.6-10.3); Creatinine Clr Calc Pharmacy 28.8 ml/min; Magnesium 1.7 mg/dl (1.7-2.4); Potassium 4.7 mmol/L (3.5-5.1)
[2024-09-17] MEDS: PANTOprazole 40 MG TAB PO SCH (13:13)
--- NOTE | 2024-09-17 15:38 | Hospitalist Progress Note ---
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 ertapenem 500 mg IV daily (end date September 19) 2. voriconazole 250 mg PO daily (end date January 17) 3. linezolid 600 mg PO Q12H (end date September 19) Plans to start Bactrim DC twice daily after Sep 19, 2024 for suppression at least for 6 months to 1 year and final duration to be decided on follow up with ID after 6 weeks. Needs CMP every other week after 09/19 while being on Bactrim DS Consulted ID--input pending Linezolid changed to IV daptomycin for now Continue IV ertapenem, voriconazole Continue local wound care Continue current management until further recommendations from infectious disease Thrombocytopenia Likely due to Linezolid/platelet clumping Evaluated for HIT during recent stay at [facility], negative PF4 antibody negative Peripheral smear--pending Monitor platelet counts, blue top tube must be used for CBC as patient has blood clumping Linezolid discontinue (was scheduled to finish on September 19, 2024) Appreciate hematology input: B12, folate levels normal, serum iron normal, ferritin elevated likely reactive Continue to monitor platelet Monitor platelet count No acute bleeding issues Follow-up peripheral smear findings Abdominal pain Unclear etiology Denies correlation with food intake --CT abdomen pelvis: No acute abnormalities are seen to explain abdominal pain. Left body wall edema is nonspecific and may represent volume overload versus contusion. Correlation with physical exam is recommended. -- Had bowel movement Started empirically on PPI Pancytopenia Monitor CBC closely DM II Hold p.o. metformin Continue insulin while hospitalized Monitor blood glucose levels DVT Px: Teds, scds Re: Thrombocytopenia CODE STATUS: Full code Admission and Anticipated Discharge Date Admission Date: September 15, 2024 Subjective Patient is seen and examined at bedside Mental status much improved today States having left knee pain Had bowel movement today Also reports mild abdominal pain associate with nausea and vomiting today Denies any chest pain, dyspnea Review of Systems Review of Systems: All systems reviewed & are unremarkable except as noted in Subjective Physical Exam Physical Exam: Physical Exam: Vitals signs as noted above General Appearance:Obese, no apparent distress Head: normocephalic, Atraumatic Eyes: normal inspection, EOMI Neck: supple, Trachea midline Respiratory/Chest: Normal breath sounds, CTA, No accessory muscle use Cardiovascular: S1, S2, No murmur Abdomen/GI:Soft, mild tender, Bowel sounds present, no guarding or rigidity Extremities/Musculoskeletal:normal inspection, no edema, Left Knee healing wound Neurologic/Psych:Alert, awake, grossly no focal neurological deficits Skin: normal color, warm Results & Data Results & Data Vital Signs (Past 12 Hours) Vital Signs Temp Pulse Resp BP Pulse Ox O2 Del Method 09/17/24 07:52 36.6 C 74 18 143/83 H 96 Room Air Laboratory Results Short CBC 09/17/24 Range/Units 06:30 WBC 4.64 L (4.8-10.8) K/ul Hgb 8.5 L (12.0-16.0) g/dl Hct 27.2 L (37.0-47.0) % Plt Count 47 L (130-400) K/uL BMP 09/17/24 06:30 Sodium 137 Potassium 4.7 Chloride 104 Carbon Dioxide 27 BUN 16 Creatinine 1.75 H Glucose 114 H Calcium 8.2 L
[2024-09-17] MEDS: ACETAMINOPHEN 325 MG TAB PO PRN (20:58)
[2024-09-18 10:56] LABS: Hematocrit (blood only) 29.2 % (37.0-47.0); Hemoglobin 9.3 g/dl (12.0-16.0); Mean Corpuscular Hemoglobin 28.7 pg (25.0-34.0); Mean Corpuscular Hgb Conc 31.8 g/dL (32.0-36.0); Mean Corpuscular Volume 90.1 fL (80.0-100.0); RDW Standard Deviation 53.1 fL (36.4-46.3); Red Blood Count 3.24 M/uL (4.20-5.40); White Blood Count 4.39 K/ul (4.8-10.8)
[2024-09-18 11:23] LABS: BUN Creatinine Ratio 9.7 (10-20); Calcium 8.5 mg/dl (8.6-10.3); Creatinine Clr Calc Pharmacy 30.6 ml/min; Magnesium 1.6 mg/dl (1.7-2.4); Potassium 4.1 mmol/L (3.5-5.1)
--- NOTE | 2024-09-18 14:00 | Pharmacy Report ---
Pharmacy Glycemic Short Note 2 - Date of Service September 18, 2024 - Glycemic Short BSG Results (Last 24 hours): 09/17/24 09/17/24 09/18/24 16:29 20:19 07:11 Glucose POC Glucose 122 H 125 H 104 H 09/18/24 09/18/24 10:12 11:05 Glucose 162 H POC Glucose 160 H OUTPATIENT ANTIDIABETIC REGIMEN: * Metformin 850mg PO BID * Insulin Aspart 4 units with meals (hold for BSG<100) * A1c 5.4% 09/16/24 ASSESSMENT: 09/18 * Anita received 2 units of bolus insulin yesterday * Fasting BSG this AM acceptable, no basal insulin indicated * Continue current NovoLog parameters, stressors stable 09/16 * 74 yo F admitted from [facility] for thrombocytopenia, heme consult. 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 ertapenem 500 mg IV daily (end date September 19) 2. voriconazole 250 mg PO daily (end date January 17) 3. linezolid 600 mg PO Q12H (end date September 19) - change to Daptomycin, as linezolid could be cause of thrombocytopenia. * Plans to start Bactrim DC twice daily after Sep 19, 2024 for suppression at least for 6 months to 1 year and final duration to be decided on follow up with ID after 6 weeks. CMP every other week after 09/19 while being on B actrim DS. Consult ID. * Type 2 DM, euglycemic, did received metformin x 2 doses inpatient yesterday, placed on hold today by hospitalist. Pharmacy consulted. * Continue current NovoLog orders only, adjust goal range, add basal tomorrow if fasting is elevated, fasting 110mg/dl this morning. PLAN FOR INPATIENT GLYCEMIC CONTROL: * Hold outpatient oral diabetes medications * Basal insulin * none at this time * Bolus insulin * NovoLog per scale ACHS or Q6hrs while NPO * Goal Range: Low 110 mg/dL - High 140 mg/dL * Correction Factor: 25 mg/dL/unit * Nutritional / Prandial insulin per carb ratio of 1 unit per 10 grams CHO consumed
[2024-09-18] MEDS: MAGNESIUM SULFATE / D5W 1 GM/100 ML BAG IV ONE (14:20)
--- NOTE | 2024-09-18 14:30 | Infectious Disease Consult ---
Date of Service September 18, 2024 Telehealth Information I performed this visit using a real-time telehealth connection between my location and the patients location ([facility]). After connecting through interactive tele-video, patient was identified by name and date of and/or wristband check.Patient (or authorized healthcare contact representative) was informed that this was a telemedicine visit and it was being conducted confidentially over secure lines. My office door was closed and no one else was present in the room with me.Patient (or authorized healthcare contact representative) provided consent to proceed with the visit, expressed an understanding of privacy and security of the telemedicine visit, and gave permission to have a hospital contact representative in the room in order to assist with the visit and to conduct portions of the visit, as needed. I informed the patient (or authorized healthcare contact representative) that I reviewed their record and presented the opportunity for them to ask any questions regarding the visit today. The patient agreed to participate. Assessment & Plan (1) Drug-induced thrombocytopenia: (2) Infection associated with internal fixation device: (3) Status post open reduction and internal fixation (ORIF) of fracture: Plan 09/19/2024 is supposed to be the end date of IV antibiotics; therefore, I would recommend stopping all antibiotics today. Tomorrow, start on oral Levaquin 500 mg once daily for chronic suppressive therapy for the next 6 months. I will see in the clinic on 10/24/2024. Thank you for consulting Infectious Disease. We will sign off for now. History of Present Illness History of Present Illness Ms. Rucker is a 74 year old woman with a history of type 2 diabetes and re cent open left distal femur fracture who was admitted to [facility] on 09/15/2024 after being sent from her intermediate because of thrombocytopenia. In late Jun 2024, she sustained a grade 3A open left distal femur fracture and underwent several operative debridements prior to fixation. Cultures at that time grew Serratia and mold. Therefore, per our recommendations, she was sent out on IV cefepime and voriconazole. She recently got admitted to [facility] with CT left lower extremity concerning for surgical bed emphysema and possible osteomyelitis. She was seen by the orthopedic team and they decided are no surgical intervention. We eventually sent out on IV cefepime, IV vancomycin and oral voriconazole with anticipated end date of 08/28/2024. She was then admitted to [facility] in early Aug 2024 because of acute cholecystitis. Surgical team recommended cholecystostomy and the patient was transferred to [facility] for further management. At [facility], a HIDA scan was performed which came back negative for cholecystitis. During that admission, she was seen by the ID team again and we decided to change the IV cefepime to IV ertapenem along with voriconazole and IV daptomycin. Unfortunately, the daptomycin was not covered by her insurance and we decided on oral linezolid instead. Anticipated end date was September 19, 2024 to be followed after that by oral Bactrim for chronic suppressive therapy. This time, she was sent from her intermediate because of thrombocytopenia. ID team was consulted for further recommendations and to help guide and adjust antibiotics as needed. Allergies Allergy/AdvReac Type Severity Reaction Status Date / Time cefepime Allergy Unknown Verified 09/15/24 16:14 ether Allergy Unknown Verified 07/13/24 20:58 Penicillins Allergy Unknown Verified 09/15/24 16:19 sorbitan esters Allergy Unknown Verified 09/15/24 16:14 Home Medications Medication Instructions Recorded Confirmed Type acetaminophen 325 mg tablet 650 mg PO Q6 PRN Pain LEVEL 1-5 08/27/24 09/15/24 History docusate sodium 100 mg capsule 100 mg PO BID 08/27/24 09/15/24 History (Colace) ergocalciferol (vitamin D2) 1,250 1,250 mcg PO WK 08/27/24 09/15/24 History mcg (50,000 unit) capsule insulin aspart U-100 100 unit/mL 4 unit subcut WM 08/27/24 09/15/24 History subcutaneous solution metformin 850 mg tablet 850 mg PO BID 08/27/24 09/15/24 History oxycodone 5 mg tablet 5 mg PO Q4H PRN PAIN 6-10 08/27/24 09/15/24 History polyethylene glycol 3350 17 gram 17 g PO DAILY 08/27/24 09/15/24 History oral powder packet (Miralax) sennosides 8.6 mg tablet (senna) 8.6 mg PO HS 08/27/24 09/15/24 History voriconazole 50 mg tablet 250 mg PO QAM 08/27/24 09/15/24 History Lactobacillus acidophilus 1 cap PO BID 09/15/24 09/15/24 History acetaminophen 325 mg tablet 325 mg PO Q6 PRN TEMP > 101 09/15/24 09/15/24 History ertapenem 1 gram solution for 0.5 g IV QAM 09/15/24 09/15/24 History injection ferrous sulfate 325 mg (65 mg 325 mg PO DAILY 09/15/24 09/15/24 History iron) tablet folic acid 1 mg tablet 1 mg PO DAILY 09/15/24 09/15/24 History linezolid 600 mg tablet 600 mg PO BID 09/15/24 09/15/24 History sulfamethoxazole 800 1 tab PO UD 09/15/24 09/15/24 History mg-trimethoprim 160 mg tablet (Bactrim DS) Patient History Social History Smoking Status: Unknown if ever smoked Tobacco Type: Cigarettes Hx Alcohol Use: No Hx Substance Use: No Preferred Language: Polish Communication Ability: Effective Machine 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 Physical Exam Couldnt be obtained as the visit was conducted via telemed. Results & Data Vital Signs (Past 12 Hours) Vital Signs Temp Pulse Resp BP Pulse Ox O2 Del Method 09/18/24 07:35 Room Air 09/18/24 07:18 36.5 C 71 18 171/81 H 94 Room Air Diagnostic Findings Imaging: CT abdomen pelvis on 09/16: 1. No acute abnormalities are seen to explain abdominal pain. 2. Left body wall edema is nonspecific and may represent volume overload versus contusion. Correlation with physical exam is recommended.
--- NOTE | 2024-09-18 16:25 | Hospitalist Progress Note ---
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 ertapenem 500 mg IV daily (end date September 19) 2. voriconazole 250 mg PO daily (end date January 17) 3. linezolid 600 mg PO Q12H (end date September 19) Plans to start Bactrim DC twice daily after Sep 19, 2024 for suppression at least for 6 months to 1 year and final duration to be decided on follow up with ID after 6 weeks. Needs CMP every other week after 09/19 while being on Bactrim DS Appreciate infectious disease input: Advised to complete IV antibiotics on 09/19/2024. Start on Levaquin 500 mg daily for chronic suppressive therapy for next 6-month Linezolid changed to IV daptomycin for now Continue IV ertapenem, voriconazole Continue local wound care Needs follow-up with infectious disease on discharge Thrombocytopenia Likely due to Linezolid/platelet clumping Evaluated for HIT during recent stay at [facility], negative PF4 antibody negative Peripheral smear--normocytic anemia and thrombocytopenia with clumping. Likely anemia of chronic disease, renal disease, hemorrhage, nutritional deficiencies. No evidence of myelodysplasia. Thrombocytopenia may be medication related. --Monitor platelet counts, blue top tube must be used for CBC as patient has blood clumping Linezolid discontinue (was scheduled to finish on September 19, 2024) Appreciate hematology input: B12, folate levels normal, serum iron normal, ferritin elevated likely reactive Continue to monitor platelet Monitor platelet count No acute bleeding issues Platelet count stable Abdominal pain Unclear etiology Denies correlation with food intake --CT abdomen pelvis: No acute abnormalities are seen to explain abdominal pain. Left body wall edema is nonspecific and may represent volume overload versus contusion. Correlation with physical exam is recommended. -- Had bowel movement Started empirically on PPI Slightly improved If persistent, will obtain surgical evaluation Check LFTs tomorrow Pancytopenia Monitor CBC closely DM II Hold p.o. metformin Continue insulin while hospitalized Monitor blood glucose levels DVT Px: Teds, scds Re: Thrombocytopenia CODE STATUS: Full code Admission and Anticipated Discharge Date Admission Date: September 15, 2024 Subjective Patient is seen and examined at bedside History unreliable due to memory issues Abdominal pain better Still has left knee pain Patient unsure if she had bowel movement today Denies any nausea, vomiting today Denies any chest pain, dyspnea Review of Systems Review of Systems: All systems reviewed & are unremarkable except as noted in Subjective Physical Exam Physical Exam: Physical Exam: Vitals signs as noted above General Appearance:Obese, no apparent distress Head: normocephalic, Atraumatic Eyes: normal inspection, EOMI Neck: supple, Trachea midline Respiratory/Chest: Normal breath sounds, CTA, No accessory muscle use Cardiovascular: S1, S2, No murmur Abdomen/GI:Soft, mild tender, Bowel sounds present, no guarding or rigidity Extremities/Musculoskeletal:normal inspection, no edema, Left Knee healing wound Neurologic/Psych:Alert, awake, grossly no focal neurological deficits Skin: normal color, warm Results & Data Results & Data Vital Signs (Past 12 Hours) Vital Signs Temp Pulse Resp BP Pulse Ox O2 Del Method 09/18/24 15:52 36.8 C 70 18 178/109 H 96 Room Air 09/18/24 15:00 18 96 Room Air 09/18/24 07:35 Room Air 09/18/24 07:18 36.5 C 71 18 171/81 H 94 Room Air Laboratory Results Short CBC 09/18/24 Range/Units 10:12 WBC 4.39 L (4.8-10.8) K/ul Hgb 9.3 L (12.0-16.0) g/dl Hct 29.2 L (37.0-47.0) % Plt Count (130-400) K/uL BMP 09/18/24 10:12 Sodium 137 Potassium 4.1 Chloride 103 Carbon Dioxide 27 BUN 16 Creatinine 1.65 H Glucose 162 H Calcium 8.5 L
[2024-09-19] MEDS: MAGNESIUM CHLORIDE W/CALCIUM 64MG DELAYED REL TAB PO SCH (08:10)
[2024-09-19 08:56] LABS: Hematocrit (blood only) 27.9 % (37.0-47.0); Hemoglobin 8.7 g/dl (12.0-16.0); Mean Corpuscular Hemoglobin 28.4 pg (25.0-34.0); Mean Corpuscular Hgb Conc 31.2 g/dL (32.0-36.0); Mean Corpuscular Volume 91.2 fL (80.0-100.0); Mean Platelet Volume 11.1 fL (9.4-12.4); Platelet Count 59 K/uL (130-400); RDW Coefficient of Variation 16.1 % (11.5-14.5); RDW Standard Deviation 53.3 fL (36.4-46.3); Red Blood Count 3.06 M/uL (4.20-5.40); White Blood Count 4.31 K/ul (4.8-10.8)
[2024-09-19 09:04] LABS: Albumin Level 2.9 gm/dl (3.4-5.0); BUN Creatinine Ratio 9.8 (10-20); Bilirubin Direct 0.1 mg/dl (0-0.2); Bilirubin,Total 0.5 mg/dl (0.2-1.0); Calcium 8.3 mg/dl (8.6-10.3); Magnesium 1.7 mg/dl (1.7-2.4); Potassium 4.3 mmol/L (3.5-5.1); Total Protein 6.3 gm/dl (6.0-8.3)
--- NOTE | 2024-09-19 09:50 | Pharmacy Report ---
Pharmacy Glycemic Sign Off Nt - Date of Service September 19, 2024 - Assessment & Plan ASSESSMENT: * Pharmacy was consulted by Dr Enamorado on 09/16 for glycemic control and to write orders per [facility] inpatient glycemic control protocol. * Major changes made by pharmacy to antidiabetic regimen include: * added novolog scale * Patient has been receiving minimal novolog each day * Regimen has only required minor adjustments over the past 48hrs to achieve this level of control * Please see recommendations for outpatient antidiabetic regimen below. PLAN FOR INPATIENT GLYCEMIC CONTROL: No changes needed to current regimen. * No basal * Continue NovoLog per scale ACHS/Q6hrs while NPO * Goal range = 110-140 mg/dl * CF = 25 mg/dl/unit * CR = 1 unit for ever 10 g CHO consumed * Pharmacy is signing off of glycemic consult and will no longer be making adjustments to inpatient regimen. Please feel free to re-consult if needed. Thank you.
[2024-09-19] MEDS: levoFLOXacin 500 MG TAB PO SCH (11:34)
--- NOTE | 2024-09-19 15:41 | Hospitalist Progress Note ---
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 ertapenem 500 mg IV daily (end date September 19) 2. voriconazole 250 mg PO daily (end date January 17) 3. linezolid 600 mg PO Q12H (end date September 19) Plans to start Bactrim DC twice daily after Sep 19, 2024 for suppression at least for 6 months to 1 year and final duration to be decided on follow up with ID after 6 weeks. Needs CMP every other week after 09/19 while being on Bactrim DS Appreciate infectious disease input: Advised to complete IV antibiotics on 09/19/2024. Start on Levaquin 500 mg daily for chronic suppressive therapy for next 6-month Linezolid changed to IV daptomycin Also on IV ertapenem Will complete IV daptomycin, ertapenem course today Continue voriconazole Continue Levaquin as recommended by ID Continue local wound care Needs follow-up with infectious disease on discharge Plan to discharge to rehab facility as able Thrombocytopenia Likely due to Linezolid/platelet clumping Evaluated for HIT during recent stay at [facility], negative PF4 antibody negative Peripheral smear--normocytic anemia and thrombocytopenia with clumping. Likely anemia of chronic disease, renal disease, hemorrhage, nutritional deficiencies. No evidence of myelodysplasia. Thrombocytopenia may be medication related. --Monitor platelet counts, blue top tube must be used for CBC as patient has blood clumping Linezolid discontinue (was scheduled to finish on September 19, 2024) Appreciate hematology input: B12, folate levels normal, serum iron normal, ferritin elevated likely reactive Continue to monitor platelet Monitor platelet count No acute bleeding issues Platelet count stable Monitor Abdominal pain Unclear etiology Denies correlation with food intake --CT abdomen pelvis: No acute abnormalities are seen to explain abdominal pain. Left body wall edema is nonspecific and may represent volume overload versus contusion. Correlation with physical exam is recommended. -- Had bowel movement Started empirically on PPI Abdominal pain improving Tolerating diet Pancytopenia Monitor CBC closely DM II Hold p.o. metformin Continue insulin while hospitalized Monitor blood glucose levels DVT Px: Teds, scds Re: Thrombocytopenia CODE STATUS: Full code Disposition SNF when accepted Admission and Anticipated Discharge Date Admission Date: September 15, 2024 Subjective Patient is seen and examined at bedside History unreliable due to memory issues Abdominal pain improved States having some back soreness left knee pain is controlled Denies any nausea, vomiting, chest pain, dyspnea Review of Systems Review of Systems: All systems reviewed & are unremarkable except as noted in Subjective Physical Exam Physical Exam: Physical Exam: Vitals signs as noted above General Appearance:Obese, no apparent distress Head: normocephalic, Atraumatic Eyes: normal inspection, EOMI Neck: supple, Trachea midline Respiratory/Chest: Normal breath sounds, CTA, No accessory muscle use Cardiovascular: S1, S2, No murmur Abdomen/GI:Soft, mild tender, Bowel sounds present, no guarding or rigidity Extremities/Musculoskeletal:normal inspection, no edema, Left Knee healing wound Neurologic/Psych:Alert, awake, grossly no focal neurological deficits Skin: normal color, warm Results & Data Results & Data Vital Signs (Past 12 Hours) Vital Signs Temp Pulse Resp BP Pulse Ox O2 Del Method O2 Del Method 09/19/24 15:22 37.0 C 80 18 167/77 H 96 Room Air 09/19/24 15:00 18 96 Room Air 09/19/24 08:00 Room Air 09/19/24 07:59 36.7 C 68 18 109/64 95 Room Air 09/19/24 07:45 Room Air Laboratory Results Short CBC 09/19/24 Range/Units 08:09 WBC 4.31 L (4.8-10.8) K/ul Hgb 8.7 L (12.0-16.0) g/dl Hct 27.9 L (37.0-47.0) % Plt Count 59 L (130-400) K/uL BMP 09/19/24 08:09 Sodium 139 Potassium 4.3 Chloride 105 Carbon Dioxide 28 BUN 17 Creatinine 1.74 H Glucose 121 H Calcium 8.3 L Liver Function 09/19/24 Range/Units 08:09 Total Bilirubin 0.5 (0.2-1.0) mg/dl Direct Bilirubin 0.1 (0-0.2) mg/dl AST 42 H (13-39) U/L ALT 23 (7-52) U/L Alkaline Phosphatase 112 H (34-104) U/L Albumin 2.9 L (3.4-5.0) gm/dl
[2024-09-20 07:30] LABS: Hematocrit (blood only) 27.3 % (37.0-47.0); Hemoglobin 8.5 g/dl (12.0-16.0); Mean Corpuscular Hemoglobin 28.4 pg (25.0-34.0); Mean Corpuscular Hgb Conc 31.1 g/dL (32.0-36.0); Mean Corpuscular Volume 91.3 fL (80.0-100.0); Mean Platelet Volume 10.4 fL (9.4-12.4); Platelet Count 51 K/uL (130-400); RDW Coefficient of Variation 15.9 % (11.5-14.5); RDW Standard Deviation 53.1 fL (36.4-46.3); Red Blood Count 2.99 M/uL (4.20-5.40); White Blood Count 4.24 K/ul (4.8-10.8)
[2024-09-20 07:44] LABS: BUN Creatinine Ratio 8.7 (10-20); Calcium 8.4 mg/dl (8.6-10.3); Creatinine Clr Calc Pharmacy 31.3 ml/min; Magnesium 1.7 mg/dl (1.7-2.4); Potassium 4.2 mmol/L (3.5-5.1)
--- NOTE | 2024-09-20 12:09 | Hospitalist Progress Note ---
Date of Service September 20, 2024 Assessment & Plan (1) Infection associated with internal fixation device: Plan: Due to ongoing infection, ID recommended Levaquin for 6 months which is being continued. (2) Thrombocytopenia: Plan: It seems to me that this may have been antibiotic associated, platelet was as low as 20,000 which has now improved to 50,000. For now we will continue to monitor. (3) Status post open reduction and internal fixation (ORIF) of fracture: Plan: Continue pain control, topical care and physiotherapy (4) Diabetes mellitus type 2 in nonobese: Plan: Glycemic control is adequate, will manage with sliding scale coverage, considering that patient has an element of CKD, I do not think that patient should go back on metformin at least for now. She had JERI during this hospitalization which was probably medication induced as well, creatinine was up to 3.1 which then gradually improved, current creatinine has come down to 1.6. Will continue to follow. Plan Awaiting placement ,otherwise medically stable. Patient from one of her admissions previously was placed on Vfend for which she is supposed to stay until December, I tried to get more information but I was unable to retrieve any, even I spoke to pharmacy who did not find anything we will allow that treatment course to get completed. I spoke to case management, at this point awaiting placement. Admission and Anticipated Discharge Date Admission Date: September 15, 2024 Subjective Patient is a 74-year-old female with prior history of diabetes mellitus type 2, hyperlipidemia, hypertension and vitamin D deficiency with complicated history of left femur fracture with nonunion and secondary infection underwent multiple courses of IV antibiotics. For infection associated with internal fixation device, she was initially treated with ertapenem, voriconazole and linezolid but then patient was seen by infectious disease and after initial trial of IV antibiotic, transition to Levaquin 500 mg daily for total of 6 months recommended. As a result of initial treatment, patient developed some thromb ocytopenia, workup for HIT was negative PF4 antibody was also negative. Follow- up by ID has been arranged. Patient was seen and examined, clinically stable, she was at some point tearful, currently waiting to go to rehab. Physical Exam Physical Exam: VITALS: Reviewed. WEIGHT/BMI reviewed. GEN: Healthy appearing, well-developed, NAD. CV: RRR, no m/r/g. LUNGS: CTAB, no w/r/c. ABD: Soft, NT/ND, NBS, no masses or organomegaly. SKIN: Warm, well perfused. No skin rashes or abnormal lesions. Results & Data Results & Data Vital Signs (Past 12 Hours) Vital Signs Temp Pulse Resp BP Pulse Ox O2 Del Method 09/20/24 07:35 36.6 C 72 20 154/84 H 95 Room Air Laboratory Results Laboratory Results - last 24 hr 09/19/24 09/19/24 09/20/24 16:44 20:36 06:52 WBC 4.24 L RBC 2.99 L Hgb 8.5 L Hct 27.3 L MCV 91.3 MCH 28.4 MCHC 31.1 L RDW Std Deviation 53.1 H RDW Coeff of Caleb 15.9 H Plt Count 51 L MPV 10.4 Sodium 140 Potassium 4.2 Chloride 106 Carbon Dioxide 27 Anion Gap 7 BUN 14 Creatinine 1.61 H Est Cr Clr Drug Dosing 31.3 eGFR 33.59 BUN/Creatinine Ratio 8.7 L Glucose 107 H POC Glucose 107 H 111 H Calcium 8.4 L Magnesium 1.7 09/20/24 09/20/24 07:10 11:32 WBC RBC Hgb Hct MCV MCH MCHC RDW Std Deviation RDW Coeff of Caleb Plt Count MPV Sodium Potassium Chloride Carbon Dioxide Anion Gap BUN Creatinine Est Cr Clr Drug Dosing eGFR BUN/Creatinine Ratio Glucose POC Glucose 119 H 159 H Calcium Magnesium Medications Administered Current Inpatient Medications Acetaminophen (Acetaminophen 325 Mg Tab) 325 mg PO Q6 PRN PRN Reason: TEMP > 101 Stop: 10/15/24 18:38 Acetaminophen (Acetaminophen 325 Mg Tab) 650 mg PO Q6 PRN PRN Reason: Pain LEVEL 1-5 Stop: 10/15/24 18:38 Last Admin: 09/19/24 20:49 Dose: 650 mg Dextrose (Dextrose 50% 50 Ml Syringe) 25 - 50 ml IV UD PRN; Protocol PRN Reason: Hypoglycemia Protocol Stop: 10/15/24 18:38 Docusate Sodium (Docusate Sodium 100 Mg Cap) 100 mg PO BID [facility] Stop: 10/15/24 20:59 Last Admin: 09/20/24 09:13 Dose: 100 mg Ergocalciferol (Ergocalciferol 1250 Mcg (50,000 Units) Cap) 1,250 mcg PO Fr@0900 [facility] Stop: 10/22/24 08:59 Ferrous Sulfate (Ferrous Sulfate 325 Mg Tab) 325 mg PO DAILY [facility] Stop: 10/16/24 08:59 Last Admin: 09/20/24 09:09 Dose: 325 mg Folic Acid (Folic Acid 1 Mg Tab) 1 mg PO DAILY [facility] Stop: 10/16/24 08:59 Last Admin: 09/20/24 09:09 Dose: 1 mg Glucagon (Glucagon For Inj 1 Mg Vial) 1 mg SQ UD PRN; Protocol PRN Reason: Hypoglycemia Protocol Stop: 10/15/24 18:38 Glucose (Glucose 40% Gel 15 Gm Tube) 15 - 30 gm PO UD PRN; Protocol PRN Reason: Hypoglycemia Protocol Stop: 10/15/24 18:38 Glucose (Glucose 10 Tab/Tube) 4 - 8 tab PO UD PRN; Protocol PRN Reason: Hypoglycemia Protocol Stop: 10/15/24 18:38 Insulin Aspart (Insulin Aspart Per Unit Charge) 0 units SC [facility] Stop: 10/15/24 20:59 Last Admin: 09/20/24 09:27 Dose: 3 units Lactobacillus Acidophilus (Advanced Probiotic 625 Mg Capsule) 1,250 mg PO DAILY [facility]; Protocol Stop: 10/16/24 08:59 Last Admin: 09/20/24 09:08 Dose: 1,250 mg Levofloxacin (Levofloxacin 500 Mg Tab) 500 mg PO DAILY@1100 LUDA; Protocol Stop: 10/19/24 10:59 Last Admin: 09/19/24 11:34 Dose: 500 mg Magnesium Chloride (Magnesium Chloride W/Calcium 64mg Delayed Rel Tab) 64 mg PO BID [facility] Stop: 10/19/24 08:59 Last Admin: 09/20/24 09:09 Dose: 64 mg Metformin HCl (Metformin Hcl 850 Mg Tab) 850 mg PO BIDM [facility] Stop: 10/15/24 18:59 Last Admin: 09/16/24 08:59 Dose: 850 mg Miscellaneous (Carbohydrates For Hypoglycemia ) 15 - 30 gm PO UD PRN PRN Reason: Hypoglycemia Protocol Stop: 10/15/24 18:38 Ondansetron HCl (Ondansetron Inj 2 Mg/Ml 2 Ml Vial) 4 mg IV Q4H PRN PRN Reason: Nausea And Vomiting Stop: 10/15/24 18:38 Last Admin: 09/16/24 23:39 Dose: 4 mg Oxycodone HCl (Oxycodone Hcl Ir 5 Mg Tab (Immediate Release)) 5 mg PO Q4H PRN PRN Reason: PAIN 6-10 Stop: 09/29/24 18:38 Last Admin: 09/20/24 09:33 Dose: 5 mg Pantoprazole Sodium (Pantoprazole 40 Mg Tab) 40 mg PO QAM [facility] Stop: 10/17/24 12:29 Last Admin: 09/20/24 09:09 Dose: 40 mg Polyethylene Glycol (Polyethylene (Miralax) 17 Gm Pack) 17 gm PO DAILY [facility] Stop: 10/16/24 08:59 Last Admin: 09/20/24 09:13 Dose: 17 gm Sennosides (Senna 8.6 Mg Tab) 8.6 mg PO HS [facility] Stop: 10/15/24 20:59 Last Admin: 09/19/24 20:49 Dose: 8.6 mg Voriconazole (Voriconazole 200 Mg Tablet) 200 mg PO QAM [facility] Stop: 10/16/24 08:59 Last Admin: 09/20/24 09:08 Dose: 200 mg Voriconazole ([facility]oriconazole 50 Mg Tablet) [facility] Stop: 01/17/25 23:59 Last Admin: 09/20/24 09:09 Dose: 50 mg (1) Infection associated with internal fixation device Internal fixation site: femur Encounter type: subsequent encounter Laterality: left Qualified Code(s): T84.621D - Infection and inflammatory reaction due to internal fixation device of left femur, subsequent encounter
[2024-09-20] MEDS: oxyCODONE HCL IR 5 MG TAB (IMMEDIATE RELEASE) PO PRN (18:11)
[2024-09-20 19:18] VITALS: TEMP 98.1
[2024-09-21 07:58] VITALS: BP 132/79; PULSE 80; RESP 17; O2SAT 97
[2024-09-21 09:25] LABS: BUN Creatinine Ratio 9.3 (10-20); Basophils # (auto) 0.02 K/uL (0.00-0.20); Basophils % (auto) 0.4 %; Calcium 8.5 mg/dl (8.6-10.3); Creatinine Clr Calc Pharmacy 31.3 ml/min; Eosinophils # (auto) 0.28 K/uL (0.00-0.50); Eosinophils % (auto) 6.2 %; Hematocrit (blood only) 26.7 % (37.0-47.0); Hemoglobin 8.6 g/dl (12.0-16.0); Immature Granulocytes # (auto) 0.03 K/uL (0.01-0.20); Immature Granulocytes % (auto) 0.7 %; Lymphocytes # (auto) 1.68 K/uL (1.20-3.40); Lymphocytes % (auto) 37.4 %; Mean Corpuscular Hemoglobin 28.7 pg (25.0-34.0); Mean Corpuscular Hgb Conc 32.2 g/dL (32.0-36.0); Monocytes # (auto) 0.41 K/uL (0.11-0.59); Monocytes % (auto) 9.1 %; Neutrophils # (auto) 2.07 K/uL (1.40-6.50); Neutrophils % (auto) 46.2 %; Potassium 4.5 mmol/L (3.5-5.1); RDW Coefficient of Variation 15.7 % (11.5-14.5); RDW Standard Deviation 51.3 fL (36.4-46.3); White Blood Count 4.49 K/ul (4.8-10.8)
--- NOTE | 2024-09-21 12:04 | Discharge Summary ---
Discharge Summary Date of Service September 21, 2024 Principal Dx & Hospital Course #1 = Principal Diagnosis (1) Infection associated with internal fixation device: (2) Thrombocytopenia: (3) Status post open reduction and internal fixation (ORIF) of fracture: (4) Diabetes mellitus type 2 in nonobese: Notes For Next Care Provider Medication Changes From Visit Continue Levaquin 500 milligram daily for 6 months approximately until 03/21/2025 Admission HPI Per Admitting Provider Patient is a 74-year-old female with prior history of diabetes mellitus type 2, hyperlipidemia, hypertension and vitamin D deficiency with complicated history of left femur fracture with nonunion and secondary infection underwent multiple courses of IV antibiotics. For infection associated with internal fixation device, she was initially treated with ertapenem, voriconazole and linezolid but then patient was seen by infectious disease and after initial trial of IV antibiotic, transition to Levaquin 500 mg daily for total of 6 months recommended. As a result of initial treatment, patient developed some thrombocytopenia, workup for HIT was negative PF4 antibody was also negative. Follow-up by ID has been arranged. Patient was seen and examined, she continues to do well, I am being told that patient has a facility who would likely by afternoon will take her, I decided to adjust her pain medications, I started her on OxyContin 10 mg twice daily along with oxycodone as needed every 6 hours. This can be adjusted further at [facility]. Updated Medication List Medication Instructions Recorded Confirmed Type acetaminophen 325 mg tablet 650 mg PO Q6 PRN Pain LEVEL 1-5 08/27/24 09/15/24 History docusate sodium 100 mg capsule 100 mg PO BID 08/27/24 09/15/24 History (Colace) ergocalciferol (vitamin D2) 1,250 1,250 mcg PO WK 08/27/24 09/15/24 History mcg (50,000 unit) capsule insulin aspart U-100 100 unit/mL 4 unit subcut WM 08/27/24 09/15/24 History subcutaneous solution metformin 850 mg tablet 850 mg PO BID 08/27/24 09/15/24 History polyethylene glycol 3350 17 gram 17 g PO DAILY 08/27/24 09/15/24 History oral powder packet (Miralax) sennosides 8.6 mg tablet (senna) 8.6 mg PO HS 08/27/24 09/15/24 History voriconazole 50 mg tablet 250 mg PO QAM 08/27/24 09/15/24 History Lactobacillus acidophilus 1 cap PO BID 09/15/24 09/15/24 History acetaminophen 325 mg tablet 325 mg PO Q6 PRN TEMP > 101 09/15/24 09/15/24 History ferrous sulfate 325 mg (65 mg 325 mg PO DAILY 09/15/24 09/15/24 History iron) tablet folic acid 1 mg tablet 1 mg PO DAILY 09/15/24 09/15/24 History levofloxacin 500 mg tablet 500 mg PO DAILY@1100 #180 tabs 09/21/24 Rx magnesium chloride 64 mg 64 mg PO BID 20 days #40 tabs 09/21/24 Rx (magnesium chloride) tablet,delayed release (Mag 64) oxycodone 10 mg tablet,crush 10 mg PO BID 30 days #60 tabs 09/21/24 Rx resistant,extended release 12 hr (OxyContin) oxycodone 5 mg tablet 5 mg PO Q6H PRN pain 15 days #20 09/21/24 Rx tabs Hospital Stay Data Consultations 09/15/24 15:56 ED Decision to Admit Stat 09/15/24 17:29 Consult Hematology Routine 09/15/24 17:30 Consult Infectious Diseases Routine Diagnostic Imagining Performed 09/16/24 11:03 CT Abd and Pelvis [CT abd pelvis wo con] Urgent CT head/brain wo con Urgent Pending Results Patient Have Any Pending Studies at Discharge: No Discharge Instructions Given to Patient (Per Discharging Provider) No further recommendation Total Time Total Time Spent Total Time Spent (In Minutes): More than 45 minutes
[2024-09-22] MEDS ORDERED: ERGOCALCIFEROL 1250 MCG (50,000 UNITS) CAP PO SCH (09:00)
== END 2024-09-21 15:24 | DRG 813 ==
LOC: ED 14:07 → EDINP 17:27 → SUATTDRO 17:27 → INTOOBSV 17:27 → 3N 23:12